=== PATIENT | female | born 1960 | race Hispanic/Latino ===

== ENCOUNTER 2016-09-22 22:53 | Inpatient (IN) | payer MEDICAID ==
[2016-09-22 22:54] VITALS: BMI 25.7
--- NOTE | 2016-09-22 23:24 | C.PDOC ---
History Of Present Illness A 56 y/o female presents to the ER c/o nausea, vomiting, and abdominal pain that began today. Pt notes the complaint as a sharp, stabbing pain in the epigastric area that is 4/10 discomfort. Pt denies fever, chills, vaginal discharge nor discharge, hematemesis, diarrhea, constipation, or any other complaints. Pt reports not tolerating PO. Time Seen by Provider: 09/22/16 23:24 Chief Complaint (Nursing): Abdominal Pain History Per: Patient History/Exam Limitations: no limitations Onset/Duration Of Symptoms: Hrs Current Symptoms Are (Timing): Still Present Severity: Mild Pain Scale Rating Of: 4 Location Of Pain/Discomfort: Epigastric Quality Of Discomfort: Sharp, Stabbing Associated Symptoms: Nausea, Vomiting. denies: Fever, Chills Alleviating Factors: None Recent travel outside of the [place]: No Additional History Per: Patient Abnormal Vaginal Bleeding: No Past Medical History Reviewed: Historical Data, Nursing Documentation, Vital Signs Vital Signs: Last Vital Signs Temp 98 F 09/22/16 23:01 Pulse 94 H 09/22/16 23:01 Resp 16 09/22/16 23:01 BP 125/85 09/22/16 23:01 Pulse Ox 96 09/23/16 01:45 - Medical History PMH: Asthma, Hypercholesterolemia Denies: Colonic Polyps, Fractures Surgical History: Denies: Endoscopy Family History: States: No Known Family Hx - Social History Hx Alcohol Use: No Hx Substance Use: No Review Of Systems Constitutional: Negative for: Fever, Chills Gastrointestinal: Positive for: Nausea, Vomiting, Abdominal Pain (Epigastric area). Negative for: Diarrhea, Constipation, Hematemesis Genitourinary: Negative for: Vaginal Discharge, Vaginal Bleeding Physical Exam - Physical Exam Appears: Non-toxic, No Acute Distress Skin: Warm, Dry Head: Normacephalic Eye(s): bilateral: Normal Inspection Oral Mucosa: Moist Neck: Trachea Midline, Supple Chest: Symmetrical Cardiovascular: Rhythm Regular Respiratory: No Rales, No Rhonchi, No Wheezing Gastrointestinal/Abdominal: Soft, Tenderness (Diffuse mild epigastric tenderness ), Distention, No Guarding, Rebound (Tympanic to percussion) Back: Normal Inspection Extremity: Normal ROM Extremity: Bilateral: Atraumatic, Normal Color And Temperature, Normal ROM Neurological/Psych: Oriented x3, Normal Speech, Normal Cognition Gait: Steady ED Course And Treatment - Laboratory Results Result Diagrams: 09/22/16 23:51 09/22/16 23:51 O2 Sat by Pulse Oximetry: 96 (RA) Pulse Ox Interpretation: Normal - CT Scan/US CT Abd/Pel Other Rad Studies (CT/US): Interpreted By Me, Read By Radiologist CT/US Interpretation: EXAM: CT Abdomen and Pelvis With Intravenous Contrast. CLINICAL HISTORY: 56 years old, female; Pain; Abdominal pain; Prior surgery; Surgery type: ; Patient HX: 320-. 16; Additional info: Epigastric pain, elevated lipase. TECHNIQUE: Axial computed tomography images of the abdomen and pelvis with intravenous contrast. This CT. exam was performed using one or more of the following dose reduction techniques: automated. exposure control, adjustment of the mA and/or kV according to patient size, and/ or use of iterative. reconstruction technique. Coronal and sagittal reformatted images were created and reviewed. CONTRAST: 100 mL of [id number] administered intravenously. COMPARISON: CT - ABD PELVIS PO IV CONTRAST 07/21/2015 5:36:06 AM. FINDINGS: Limitations: Motion artifact - mild. Lower thorax: Minimal atelectasis/scarring. Small hiatal hernia. ABDOMEN: Liver: Mild LEFT intrahepatic ductal dilatation, stable. Gallbladder and bile ducts: No calcified gallstones. No extrahepatic biliary duct dilatation. Pancreas: Emic-wi-ezpduxji stranding/fluid about head/neck of pancreas. Mild stranding about tail. of pancreas. No definite pancreatic necrosis. No discrete peripancreatic collection. Spleen: No splenomegaly. Adrenals: No mass. Kidneys and ureters: No mass. No hydronephrosis. Stomach and bowel: Scattered diverticula within colon. No associated inflammatory stranding. Segmental areas of underdistention of colon. No definite bowel wall thickening. No obstruction. Mild focal mural thickening vs underdistention of gastric antrum. Appendix: Normal caliber. No inflammation. PELVIS: Bladder: Unremarkable. Reproductive: Unremarkable as visualized. ABDOMEN and PELVIS: Intraperitoneal space: No significant fluid collection. No free air. Bones/ joints: No acute fracture. Soft tissues: Unremarkable. Vasculature: Patent splenic artery and vein. Minimal atherosclerotic disease. No abdominal aortic. aneurysm. Lymph nodes: No pathologically enlarged lymph nodes. IMPRESSION: 1. Acute pancreatitis. 2. Incidental/non-acute findings are described above. Disposition Discussed With Dr.: Tra Gillette Comment: accepted the pt on his service and took over the care at 1:48AM Doctor Will See Patient In The: ED Counseled Patient/Family Regarding: Studies Performed, Diagnosis - Disposition Disposition: HOSPITALIZED Disposition Time: 23:24 Condition: FAIR - POA Present On Arrival: Poor Glycemic Control - Clinical Impression Clinical Impression: Abdominal pain, Nausea, Acute pancreatitis - Scribe Statement The provider has reviewed the documentation as recorded by the Milesibe Kendell adams All medical record entries made by the Milesibe were at my direction and personally dictated by me. I have reviewed the chart and agree that the record accurately reflects my personal performance of the history, physical exam, medical decision making, and the department course for this patient. I have also personally directed, reviewed, and agree with the discharge instructions and disposition. Decision To Admit - Pt Status Changed To: Hospital Disposition Of: Inpatient - Admit Certification Admit to Inpatient:: After my assessment, the patient will require hospitalization for at least two midnights. This is because of the severity of symptoms shown, intensity of services needed, and/or the medical risk in this patient being treated as an outpatient. - InPatient: Physician Admission Certification:: After my assessment, the patient will require hospitalization for at least two midnights. This is because of the severity of symptoms shown, intensity of services needed, and/or the medical risk in this patient being treated as an outpatient. - . Bed Request Type: Regular Admitting Physician: Tra Gillette Patient Diagnosis: Nausea, Abdominal pain, Acute pancreatitis
[2016-09-22] MEDS ORDERED: Sodium Chloride 0.9% 1,000 ML IV ONE (23:26)
[2016-09-22] MEDS ORDERED: Sodium Chloride 0.9% 1,000 ML ONE (23:50)
[2016-09-22 23:55] LABS: BASO # 0.2 K/uL (0.0-0.2); EOS % 0.2 % (0.0-4.0); LYMPH # 2.1 K/uL (1.0-4.3); LYMPH % 13.9 % (20.0-40.0); MEAN CELL VOLUME 84.1 fL (81.0-99.0); MEAN CORPUSCULAR HEMOGLOBIN 29.7 pg (27.0-31.0); MEAN CORPUSCULAR HGB CONC 35.3 g/dL (33.0-37.0); MEAN PLATELET VOLUME 9.4 fL (7.2-11.7); MONO # 0.8 K/uL (0.0-0.8); NRBC % 0.1 % (0.0-2.0); WHITE BLOOD COUNT 15.4 K/uL (4.8-10.8)
[2016-09-23 00:02] LABS: CHLORIDE 97 mmol/L (98-107)
[2016-09-23 00:03] LABS: POTASSIUM 4.7 mmol/L (3.6-5.2); SODIUM 132 mmol/L (132-148)
[2016-09-23 00:05] LABS: ALB/GLOB RATIO 0.9 (1.0-2.1); ALKALINE PHOSPHATASE 77 U/L (38-126); ALT/SGPT 31 U/L (9-52); AST/SGOT 36 U/L (14-36); BILIRUBIN,TOTAL 1.1 mg/dL (0.2-1.3); BLOOD UREA NITROGEN 13 mg/dL (7-17); CARBON DIOXIDE 22 mmol/L (22-30); GFR AFRICAN-AMERICAN > 60; GLUCOSE,RANDOM 125 mg/dL (65-105); TOTAL PROTEIN 8.5 g/dL (6.3-8.3)
[2016-09-23 00:06] LABS: ALCOHOL SERUM < 10 mg/dl (0-10); CALCIUM 8.7 mg/dl (8.6-10.4)
[2016-09-23 00:08] LABS: URINE BACTERIA OCC (<OCC); URINE BILIRUBIN NEGATIVE (NEGATIVE); URINE BLOOD NEGATIVE (NEGATIVE); URINE COLOR Yellow (YELLOW); URINE GLUCOSE (UA) NORMAL (Normal); URINE KETONE NEGATIVE (NEGATIVE); URINE LEUKOCYTE ESTERASE TRACE Leu/uL (Negative); URINE PROTEIN NEGATIVE (NEGATIVE); URINE UROBILINOGEN NORMAL mg/dL (0.2-1.0); WBC URINE 8 /hpf (0-5)
[2016-09-23] MEDS ORDERED: Iodixanol 320 MG/ML 100 ML BOTTLE IV ONE (00:53)
--- NOTE | 2016-09-23 01:42 | CT ---
EXAM: CT Abdomen and Pelvis With Intravenous Contrast CLINICAL HISTORY: 56 years old, female; Pain; Abdominal pain; Prior surgery; Surgery type: ; Patient HX: 07-21-15; Additional info: Epigastric pain, elevated lipase TECHNIQUE: Axial computed tomography images of the abdomen and pelvis with intravenous contrast. This CT exam was performed using one or more of the following dose reduction techniques: automated exposure control, adjustment of the mA and/or kV according to patient size, and/or use of iterative reconstruction technique. Coronal and sagittal reformatted images were created and reviewed. CONTRAST: 100 mL of [id number] administered intravenously. COMPARISON: CT - ABD PELVIS PO IV CONTRAST 07/21/2015 5:36:06 AM FINDINGS: Limitations: Motion artifact - mild. Lower thorax: Minimal atelectasis/scarring. Small hiatal hernia. ABDOMEN: Liver: Mild LEFT intrahepatic ductal dilatation, stable. Gallbladder and bile ducts: No calcified gallstones. No extrahepatic biliary duct dilatation. Pancreas: Llhu-ng-jfhtfchh stranding/fluid about head/neck of pancreas. Mild stranding about tail of pancreas. No definite pancreatic necrosis. No discrete peripancreatic collection. Spleen: No splenomegaly. Adrenals: No mass. Kidneys and ureters: No mass. No hydronephrosis. Stomach and bowel: Scattered diverticula within colon. No associated inflammatory stranding. Segmental areas of underdistention of colon. No definite bowel wall thickening. No obstruction. Mild focal mural thickening vs underdistention of gastric antrum. Appendix: Normal caliber. No inflammation. PELVIS: Bladder: Unremarkable. Reproductive: Unremarkable as visualized. ABDOMEN and PELVIS: Intraperitoneal space: No significant fluid collection. No free air. Bones/joints: No acute fracture. Soft tissues: Unremarkable. Vasculature: Patent splenic artery and vein. Minimal atherosclerotic disease. No abdominal aortic aneurysm. Lymph nodes: No pathologically enlarged lymph nodes. IMPRESSION: 1. Acute pancreatitis. 2. Incidental/non-acute findings are described above.
[2016-09-23 02:54] VITALS: RESP 20
--- NOTE | 2016-09-23 03:00 | CP.PCM.HP ---
<Yuki Gomez - Last Filed: 09/23/16 02:48> History of Present Illness - History of Present Illness History of Present Illness: CC: "abdominal pain and vomiting" HPI: Patient is a 56 year old female with past medical history of hyperlipidemia and asthma who presents to the emergency room complaining of abdominal pain and vomiting. Patient reports epigastric abdominal pain began last night. She notes the pain was exacerbated after eating breakfast in the morning and shortly after she began to experience nausea/emesis and had 4 subsequent episodes. Patient reports vomitus contained food contents and denies hematemesis/coffee ground emesis. She described abdominal pain to be located to epigastric area, constant, and sharp in character. Patient states she has been treated three times in the past for similar symptoms but denies knowledge of previous diagnosis of pancreatitis. Patient admits to drinking half a bottle of whiskey on Fridays/Saturdays for several years. She denies current or previous withdrawal symptoms. Patient denies chest pain, shortness of breath, headache, fever, chills, dysuria, constipation, diarrhea, hematochezia, melanic stools, increased urinary frequency, and lower extremity edema. PMH: see HPI Medications: cholesterol medication? Allergies: NKDA Family History: No known family history Surgeries: Social: 25 pack year history. Drinks half a bottle of whiskey on Fridays or Saturdays for several years. Denies illicit drug use. Present on Admission - Present on Admission Any Indicators Present on Admission: No History of DVT/PE: No History of Uncontrolled Diabetes: No Urinary Catheter: No Decubitus Ulcer Present: No Review of Systems - Constitutional Constitutional: absent: Chills, Fever, Headache, Night Sweats, Weakness - EENT Eyes: absent: Blurred Vision, Change in Vision Ears: absent: Ear Pain, Tinnitus Nose/Mouth/Throat: absent: Nasal Congestion, Nasal Discharge - Cardiovascular Cardiovascular: absent: Chest Pain, Chest Pain at Rest, Chest Pain with Activity , Dyspnea, Palpitations - Gastrointestinal Gastrointestinal: Abdominal Pain, Nausea, Vomiting. absent: Coffee Ground Emesis, Constipation, Diarrhea, Heartburn, Hematemesis, Hematochezia - Genitourinary Genitourinary: absent: Dysuria, Hematuria, Urinary Frequency, Urinary Urgency - Musculoskeletal Musculoskeletal: absent: Arthralgias, Atrophy - Integumentary Integumentary: absent: Changing Lesions, New Lesions - Psychiatric Psychiatric: absent: Anxiety, Depression - Endocrine Endocrine: absent: Cold Intolorance, Heat Intolorance, Palpitations Past Patient History - Infectious Disease Hx of Infectious Diseases: None - Past Medical History & Family History Past Medical History?: Yes - Past Social History Smoking Status: Light Smoker < 10 Cigarettes Daily - CARDIAC Hx Hypercholesterolemia: Yes - PULMONARY Hx Asthma: Yes - MUSCULOSKELETAL/RHEUMATOLOGICAL Hx Fractures: No - GASTROINTESTINAL Hx Gastrointestinal Disorders: No - PSYCHIATRIC Hx Substance Use: No - SURGICAL HISTORY Hx Surgeries: Yes Hx Arthroscopy: Yes (LEFT SHOULDER AND LEFT ELBOW; FALL 2010) Hx Section: Yes (X1) - ANESTHESIA Hx Anesthesia: Yes Hx Anesthesia Reactions: No Hx Malignant Hyperthermia: No Meds Allergies/Adverse Reactions: Allergies Allergy/AdvReac Type Severity Reaction Status Date / Time No Known Allergies Allergy Verified 09/22/16 23:04 Physical Exam - Constitutional Appears: Non-toxic, No Acute Distress - Head Exam Head Exam: ATRAUMATIC, NORMAL INSPECTION, NORMOCEPHALIC - Eye Exam Eye Exam: EOMI, Normal appearance, PERRL - ENT Exam ENT Exam: Mucous Membranes Moist - Respiratory Exam Respiratory Exam: Clear to Auscultation Bilateral, NORMAL BREATHING PATTERN. absent: Rales, Rhonchi, Wheezes - Cardiovascular Exam Cardiovascular Exam: +S1, +S2. absent: Bradycardia, Tachycardia, +S4 - GI/Abdominal Exam GI & Abdominal Exam: Normal Bowel Sounds, Soft, Tenderness. absent: Guarding, Rebound, Rigid Additional comments: pain to palpation lateral to umbilicus on bilateral sides mild epigastric pain to palpation no rebound tenderness noted normal bowel sounds present no skin changes - Extremities Exam Extremities exam: Positive for: normal capillary refill, normal inspection, pedal pulses present. Negative for: pedal edema, tenderness - Back Exam Back exam: NORMAL INSPECTION. absent: CVA tenderness (L), CVA tenderness (R) - Neurological Exam Neurological exam: Alert, CN II-XII Intact, Oriented x3 - Psychiatric Exam Psychiatric exam: Normal Affect, Normal Mood - Skin Skin Exam: Intact, Normal Color, Warm Results - Vital Signs Recent Vital Signs: Last Vital Signs Temp 98.1 F 09/23/16 02:09 Pulse 88 09/23/16 02:09 Resp 18 09/23/16 02:09 BP 139/91 H 09/23/16 02:09 Pulse Ox 98 09/23/16 02:09 - Labs Result Diagrams: 09/22/16 23:51 09/22/16 23:51 Assessment & Plan - Assessment and Plan (Free Text) Assessment: 1. Acute Pancreatitis - possibly secondary to binge drinking. Will monitor for signs of withdrawal. - Lipase 988 - Leukocytosis of 15.4m afebrile - NPO - Normal Saline IV @200cc - Zofran 4 mg IVP q6h prn for nausea/vomiting - f/u fasting lipid panel, lipase, amylase - Morphine 1 mg IVP q4h prn for moderate pain - Monitor 2. Urine positive for bacteria - asymptomatic - UA: Leuk Esterase trace, WBC 8, Bacteria Occ H, Squam epith cells 6 - Repeat UA and urine culture 3. Prophylaxis -SCDs -Heparin 5000 U SC Q12h -Pepcid 20 mg IVP daily - Date & Time Date: 09/23/16 Time: 03:12 <Tra Gillette - Last Filed: 09/23/16 06:19> Results - Vital Signs Recent Vital Signs: Last Vital Signs Temp 98.4 F 09/23/16 02:52 Pulse 85 09/23/16 02:52 Resp 20 09/23/16 03:45 BP 134/85 09/23/16 02:52 Pulse Ox 96 09/23/16 02:52 - Labs Result Diagrams: 09/22/16 23:51 09/22/16 23:51 Assessment & Plan - Date & Time Date: 09/23/16 (I have seen and examined the patient. I agree with the findings and plan of care as documented by Dr. Gomez. Patient with acute pancreatitis. NPO. IVF. Symptomatic treatment. Patient admits to drinking heavily on weekends. Pancreatitis may be secondary to alcohol. Monitor for signs of withdrawal. Monitor for acute changes.) Time: 06:18 Attending/Attestation - Attestation I have personally seen and examined this patient.: Yes I have fully participated in the care of the patient.: Yes I have reviewed all pertinent clinical information: Yes
[2016-09-23] MEDS: Sodium Chloride 0.9% 1,000 ML IV SCH ×4 (03:30→23:02)
[2016-09-23 07:16] LABS: RBC URINE 1 /hpf (0-3); URINE BILIRUBIN NEGATIVE (NEGATIVE); URINE BLOOD NEGATIVE (NEGATIVE); URINE COLOR Yellow (YELLOW); URINE GLUCOSE (UA) NORMAL (Normal); URINE KETONE NEGATIVE (NEGATIVE); URINE LEUKOCYTE ESTERASE NEG Leu/uL (Negative); URINE PROTEIN NEGATIVE (NEGATIVE); URINE UROBILINOGEN NORMAL mg/dL (0.2-1.0); WBC URINE 1 /hpf (0-5)
[2016-09-23 08:18] LABS: BASO # 0.1 K/uL (0.0-0.2); BASO % 0.6 % (0.0-2.0); EOS # 0.1 K/uL (0.0-0.7); EOS % 0.7 % (0.0-4.0); HEMATOCRIT 38.9 % (34.0-47.0); LYMPH # 2.3 K/uL (1.0-4.3); LYMPH % 18.5 % (20.0-40.0); MEAN CELL VOLUME 83.6 fL (81.0-99.0); MEAN CORPUSCULAR HEMOGLOBIN 27.9 pg (27.0-31.0); MEAN CORPUSCULAR HGB CONC 33.4 g/dL (33.0-37.0); MEAN PLATELET VOLUME 10.1 fL (7.2-11.7); MONO # 0.7 K/uL (0.0-0.8); MONO % 6.1 % (0.0-10.0); RED CELL DISTRIBUTION WIDTH 13.1 % (11.5-14.5); WHITE BLOOD COUNT 12.3 K/uL (4.8-10.8)
[2016-09-23 08:34] LABS: CHLORIDE 103 mmol/L (98-107); POTASSIUM 3.9 mmol/L (3.6-5.2); SODIUM 137 mmol/L (132-148)
[2016-09-23 08:36] LABS: ALB/GLOB RATIO 1.1 (1.0-2.1); AMYLASE 156 U/L (30-110); AST/SGOT 22 U/L (14-36); BILIRUBIN,TOTAL 0.6 mg/dL (0.2-1.3); CARBON DIOXIDE 25 mmol/L (22-30); GFR AFRICAN-AMERICAN > 60
[2016-09-23 08:37] LABS: ALKALINE PHOSPHATASE 69 U/L (38-126); ALT/SGPT 25 U/L (9-52); BLOOD UREA NITROGEN 10 mg/dL (7-17); CALCIUM 7.9 mg/dl (8.6-10.4); CHOLESTEROL 292 mg/dL (0-199); GLUCOSE,RANDOM 105 mg/dL (65-105)
[2016-09-23 09:03] LABS: THYROID STIMULATING HORMONE 0.92 mIU/L (0.46-4.68)
--- NOTE | 2016-09-23 14:29 | US ---
HISTORY: pancreatitis r/o gallstones/ obx COMPARISON: Comparison is made to the previous CT dated 09/23/2016 TECHNIQUE: Sonographic evaluation of the abdomen. FINDINGS: LIVER: Measures 18.2 cm. Heterogeneous increased echogenicity of the liver parenchyma. No mass. No intrahepatic bile duct dilatation. GALLBLADDER: Unremarkable. No gallstones. COMMON BILE DUCT: Measures 3.9 mm. No stones. No dilatation. PANCREAS: Limited assessment of the pancreas due to overlying bowel gas. The visualized portion of the pancreas demonstrates hypoechoic echotexture could be due to edema and pancreatitis RIGHT KIDNEY: Measures 12 x 5.8 x 6cm. Normal echogenicity. No calculus, mass, or hydronephrosis. LEFT KIDNEY: Measures 10.7 x 6.3 x 5.8cm. Normal echogenicity. No calculus, mass, or hydronephrosis. SPLEEN: Normal in size and contour. No mass. AORTA: No aneurysmal dilatation. IVC: Unremarkable. OTHER FINDINGS: None. IMPRESSION: Mild hepatomegaly with findings suggestive of [id number]-[id number] hepatic steatosis. Suboptimal and/limited assessment of the pancreas due to overlying bowel gas. Visualized portion of the pancreas demonstrates hypoechoic echotexture could be due to edema and pancreatitis. No evidence of cholelithiasis or cholecystitis.
--- NOTE | 2016-09-23 14:59 | CP.PCM.PN ---
<Allegra Pak - Last Filed: 09/23/16 15:01> Subjective - Date & Time of Evaluation Date of Evaluation: 09/23/16 Time of Evaluation: 08:00 - Subjective Subjective: Patient seen and examined at bedside this morning. She reports a lot of pain in her abdomen. He says that the last tiem she vomitied was yesterday evening and she denies nausea right now. She reports normal bowel movements. She is currently NPO. She reports drinking whisky on Fridays, Saturdays, and Sundays about 5-6 glasses or half of a handle on each occasion. She has been drinking like this for 8 years. She denies withdrawal symptoms or seizures when she does not drink alcohol. She has no other complaints such as fever/chills, weakness, numbness, chest pain, palpitations, Objective - Vital Signs/Intake and Output Vital Signs (last 24 hours): Temp Pulse Resp BP Pulse Ox 98.6 F 85 20 130/78 96 09/23/16 08:22 09/23/16 08:22 09/23/16 08:22 09/23/16 14:35 09/23/16 08:22 Intake and Output: 09/23/16 09/23/16 06:59 18:59 Intake Total 650 Balance 650 - Medications Medications: Current Medications Famotidine (Pepcid) [address] [facility] Last Admin: 09/23/16 09:13 Dose: 20 mg Heparin Sodium (Porcine) (Heparin) 5,[address] [facility] Last Admin: 09/23/16 09:08 Dose: 5,000 units Sodium Chloride (Sodium Chloride 0.9%) 1,000 mls @ 200 mls/hr IV .Q5H [facility] Last Admin: 09/23/16 14:25 Dose: 200 mls/hr Morphine Sulfate (Morphine) 1 mg IVP Q4 PRN PRN Reason: Pain, moderate (4-7) Ondansetron HCl (Zofran Inj) 4 mg IVP Q6H PRN PRN Reason: Nausea/Vomiting Pneumococcal Polyvalent Vaccine (Pneumovax 23 Vaccine) 0.5 ml IM .ONCE ONE Stop: 09/26/16 10:01 - Labs Labs: 09/23/16 08:11 09/23/16 08:11 PT 11.2 SECONDS (9.7-12.2) 09/23/16 08:11 INR 1.0 09/23/16 08:11 APTT 28 SECONDS (21-34) 09/23/16 08:11 - Constitutional Appears: Non-toxic, No Acute Distress, In Acute Distress - Head Exam Head Exam: ATRAUMATIC, NORMAL INSPECTION - Eye Exam Eye Exam: EOMI, Normal appearance. absent: Scleral icterus Pupil Exam: NORMAL ACCOMODATION - ENT Exam ENT Exam: Mucous Membranes Moist - Respiratory Exam Respiratory Exam: Clear to Ausculation Bilateral, NORMAL BREATHING PATTERN. absent: Accessory Muscle Use, Rales, Rhonchi, Wheezes, Respiratory Distress - Cardiovascular Exam Cardiovascular Exam: REGULAR RHYTHM, +S1, +S2 - GI/Abdominal Exam GI & Abdominal Exam: Guarding, Soft, Tenderness, Normal Bowel Sounds (diffuse tenderness). absent: Firm, Rigid - Extremities Exam Extremities Exam: Normal Inspection. absent: Calf Tenderness, Pedal Edema - Back Exam Back Exam: NORMAL INSPECTION. absent: CVA tenderness (L), CVA tenderness (R), paraspinal tenderness - Neurological Exam Neurological Exam: Alert, Awake, CN II-XII Intact, Oriented x3 - Psychiatric Exam Psychiatric exam: Normal Affect, Normal Mood - Skin Skin Exam: Dry, Intact, Normal Color, Warm Assessment and Plan - Assessment and Plan (Free Text) Assessment: Acute Pancreatitis possibly secondary to Alcohol or/and high triglyceride levels NPO NS at 200 cc/hour Morphine 1 mg IVP q4h prn for moderate pain Tchol - 292, Trig 1573, Hdl 35, LDL <30 Lipase 988, then 534 Leukocytosis of 15.4m afebrile Zofran 4 mg IVP q6h prn for nausea/vomiting UA neg f/u am labs Alcohol Withdrawal Librium taper Folic acid/MV/Thiamine CIWA protocol Seizure/aspiration precautions Alcohol level <10 f/u UDS Hepatitis negative Prophylaxis -SCDs -Heparin 5000 U SC Q12h -Pepcid 20 mg IVP daily <Janel Nolasco V - Last Filed: 09/23/16 19:56> Objective - Vital Signs/Intake and Output Vital Signs (last 24 hours): Temp Pulse Resp BP Pulse Ox 98.6 F 85 20 130/78 96 09/23/16 08:22 09/23/16 08:22 09/23/16 08:22 09/23/16 14:35 09/23/16 08:22 - Medications Medications: Current Medications Chlordiazepoxide (Librium) [address] [facility] PRN Reason: Taper Stop: 09/27/16 17:59 Last Admin: 09/23/16 18:13 Dose: 25 mg Famotidine (Pepcid) [address] [facility] Last Admin: 09/23/16 09:13 Dose: 20 mg Heparin Sodium (Porcine) (Heparin) 5,[address] [facility] Last Admin: 09/23/16 09:08 Dose: 5,000 units Sodium Chloride (Sodium Chloride 0.9%) 1,000 mls @ 200 mls/hr IV .Q5H [facility] Last Admin: 09/23/16 18:16 Dose: 200 mls/hr Folic Acid 1 mg/ Sodium (Chloride) 100.2 mls @ 60 mls/hr IV DAILY [facility] Morphine Sulfate (Morphine) 1 mg IVP Q4 PRN PRN Reason: Pain, moderate (4-7) Last Admin: 09/23/16 16:10 Dose: 1 mg Ondansetron HCl (Zofran Inj) 4 mg IVP Q6H PRN PRN Reason: Nausea/Vomiting Pneumococcal Polyvalent Vaccine (Pneumovax 23 Vaccine) 0.5 ml IM .ONCE ONE Stop: 09/26/16 10:01 Thiamine HCl (Vitamin B1 Inj) [address] [facility] - Labs Labs: 09/23/16 08:11 09/23/16 08:11 PT 11.2 SECONDS (9.7-12.2) 09/23/16 08:11 INR 1.0 09/23/16 08:11 APTT 28 SECONDS (21-34) 09/23/16 08:11 Attending/Attestation - Attestation I have personally seen and examined this patient.: Yes I have fully participated in the care of the patient.: Yes I have reviewed all pertinent clinical information, including history, physical exam and plan: Yes Notes (Text): Patient seen, examined, and case discussed with day-time resident. Patient reports epigastric abdominal pain localized to the abdomen for about one day duration. Patient reports alcohol use every Wednesday, Wednesday, and Sundays. Patient reports she has had three similar attacks this years. Discussed with patient extensively regarding contributing factor of alcohol in her abdominal pain. Patient denies symptoms of withdrawal from alcohol. Patient reports last menstrual period was about 20 years ago. Patient denies dysuria, denies frequency, and denies hematuria. 1) Acute Pancreatitis Gigi's criteria: 1 (Age) Risk factors: alcohol, hypertriglyceridemia NPO NS at 200 cc/hour Morphine 1 mg IVP q4h prn for moderate pain Tchol - 292, Trig 1573, Hdl 35, LDL <30-->will start fibrate when diet is advanced Lipase 988, then 534 Zofran 4 mg IVP q6h prn for nausea/vomiting Abdominal US (09/23/16): mild hepatomegaly with findings suggestive of mild to moderate hepatic steatosis. hypoechonic echotexture could be due to edema and pancreatitis. No evidence of cholelithiasis or cholecystitis CT Abdomen and Pelvis (IV contrast): acute pancreatitis; mild to moderate straning/fluid about head/neck of pancreas. mild stranding about tail of pancreas. No definite pancreatic necrosis. No discrete peripancreatic collection. No gallstones. No extrahepatic biliary duct dilatation 2) Alcohol use Alcohol Withdrawal Librium taper (day 1) Folic acid/MV/Thiamine CIWA protocol Seizure/aspiration precautions Alcohol level <10 f/u UDS Hepatitis negative 3) Prophylaxis SCDs Heparin 5000 U SC Q12h Pepcid 20 mg IVP daily NS 200cc/hr 4) Hypertriglyceridemia Will start fibrate when diet is advanced
[2016-09-23] MEDS ORDERED: Thiamine 100 mg/ml Inj IV ONE (15:07)
[2016-09-23] MEDS ORDERED: Thiamine 100 mg/ml Inj IM ONE (22:34)
[2016-09-24 08:05] LABS: BASO # 0.1 K/uL (0.0-0.2); BASO % 0.7 % (0.0-2.0); EOS % 0.2 % (0.0-4.0); HEMATOCRIT 36.6 % (34.0-47.0); LYMPH # 2.4 K/uL (1.0-4.3); LYMPH % 14.5 % (20.0-40.0); MEAN CELL VOLUME 84.3 fL (81.0-99.0); MEAN CORPUSCULAR HEMOGLOBIN 28.3 pg (27.0-31.0); MEAN CORPUSCULAR HGB CONC 33.5 g/dL (33.0-37.0); MEAN PLATELET VOLUME 9.8 fL (7.2-11.7); MONO % 6.2 % (0.0-10.0); RED CELL DISTRIBUTION WIDTH 13.5 % (11.5-14.5); WHITE BLOOD COUNT 16.7 K/uL (4.8-10.8)
[2016-09-24 08:20] LABS: CHLORIDE 101 mmol/L (98-107); POTASSIUM 3.6 mmol/L (3.6-5.2); SODIUM 134 mmol/L (132-148)
[2016-09-24 08:22] LABS: ALKALINE PHOSPHATASE 64 U/L (38-126); ALT/SGPT 19 U/L (9-52); AST/SGOT 21 U/L (14-36); BLOOD UREA NITROGEN 6 mg/dL (7-17); CARBON DIOXIDE 25 mmol/L (22-30); GFR AFRICAN-AMERICAN > 60; TOTAL PROTEIN 6.9 g/dL (6.3-8.3)
[2016-09-24 08:23] LABS: CALCIUM 7.7 mg/dl (8.6-10.4); GLUCOSE,RANDOM 101 mg/dL (65-105); MAGNESIUM 1.8 mg/dL (1.6-2.3); PHOSPHOROUS 2.9 mg/dL (2.5-4.5)
[2016-09-24] MEDS: Thiamine 100 mg/ml Inj IV SCH (09:27)
[2016-09-24] MEDS: Sodium Chloride 0.9% 1,000 ML IV SCH ×2 (09:40→19:40)
--- NOTE | 2016-09-24 10:09 | CP.PCM.PN ---
<Allegra Pak - Last Filed: 09/24/16 14:05> Subjective - Date & Time of Evaluation Date of Evaluation: 09/24/16 Time of Evaluation: 07:15 - Subjective Subjective: Patient seen and examined at bedside this morning. She reports a lot of pain in her abdomen. She states the pain medicine is not working for her. She denies nausea or vomiting. Her last BM was 3 days ago. She is currently NPO. She denies withdrawal symptoms such as anziety, tremors, sweating, hallucinations, or seizures. She has no other complaints such as fever/chills, weakness, numbness, chest pain, palpitations, Objective - Vital Signs/Intake and Output Vital Signs (last 24 hours): Temp Pulse Resp BP Pulse Ox 99.6 F 101 H 20 119/78 99 09/24/16 00:05 09/24/16 00:05 09/24/16 00:05 09/24/16 00:05 09/24/16 00:05 Intake and Output: 09/24/16 09/24/16 06:59 18:59 Intake Total 1999 Balance 1999 - Medications Medications: Current Medications Chlordiazepoxide (Librium) 25 mg PO Q6 [facility] PRN Reason: Taper Stop: 09/27/16 17:59 Last Admin: 09/24/16 06:38 Dose: 25 mg Famotidine (Pepcid) 20 mg IVP DAILY [facility] Last Admin: 09/24/16 09:25 Dose: 20 mg Heparin Sodium (Porcine) (Heparin) 5,000 units SC Q12 [facility] Last Admin: 09/24/16 09:26 Dose: 5,000 units Sodium Chloride (Sodium Chloride 0.9%) 1,000 mls @ 200 mls/hr IV .Q5H [facility] Last Admin: 09/24/16 09:40 Dose: 200 mls/hr Folic Acid 1 mg/ Sodium (Chloride) 100.2 mls @ 60 mls/hr IV DAILY [facility] Last Admin: 09/24/16 09:28 Dose: 60 mls/hr Morphine Sulfate (Morphine) 2 mg IVP Q4 PRN PRN Reason: Pain, moderate (4-7) Last Admin: 09/24/16 09:13 Dose: 2 mg Ondansetron HCl (Zofran Inj) 4 mg IVP Q6H PRN PRN Reason: Nausea/Vomiting Pneumococcal Polyvalent Vaccine (Pneumovax 23 Vaccine) 0.5 ml IM .ONCE ONE Stop: 09/26/16 10:01 Thiamine HCl (Vitamin B1 Inj) 100 mg IV DAILY [facility] Last Admin: 09/24/16 09:27 Dose: 100 mg - Labs Labs: 09/24/16 07:53 09/24/16 07:53 PT 11.2 SECONDS (9.7-12.2) 09/23/16 08:11 INR 1.0 09/23/16 08:11 APTT 28 SECONDS (21-34) 09/23/16 08:11 - Constitutional Appears: Non-toxic, In Acute Distress - Head Exam Head Exam: ATRAUMATIC, NORMAL INSPECTION - Eye Exam Eye Exam: EOMI, Normal appearance. absent: Scleral icterus Pupil Exam: NORMAL ACCOMODATION - ENT Exam ENT Exam: Mucous Membranes Moist - Respiratory Exam Respiratory Exam: Clear to Ausculation Bilateral, NORMAL BREATHING PATTERN. absent: Accessory Muscle Use, Rales, Wheezes, Respiratory Distress - Cardiovascular Exam Cardiovascular Exam: REGULAR RHYTHM, +S1, +S2 - GI/Abdominal Exam GI & Abdominal Exam: Guarding, Soft, Tenderness, Normal Bowel Sounds. absent: Distended, Firm - Extremities Exam Extremities Exam: Normal Inspection. absent: Calf Tenderness, Pedal Edema - Back Exam Back Exam: NORMAL INSPECTION. absent: CVA tenderness (L), CVA tenderness (R), paraspinal tenderness - Neurological Exam Neurological Exam: Alert, Awake, Oriented x3 Neuro motor strength exam: Left Upper Extremity: 5, Right Upper Extremity: 5, Left Lower Extremity: 5, Right Lower Extremity: 5 - Psychiatric Exam Psychiatric exam: Normal Affect, Normal Mood - Skin Skin Exam: Dry, Intact, Normal Color, Warm Assessment and Plan - Assessment and Plan (Free Text) Assessment: Acute Pancreatitis Likely secondary to alcohol use and hypertriglyceridemia NPO NS at 200 cc/hour Morphine 2 mg IVP q4h prn for moderate pain Tchol - 292, Trig 1573, Hdl 35, LDL <30-->will start fibrate when diet is advanced Lipase 534 from 988 on admission Zofran 4 mg IVP q6h prn for nausea/vomiting Abdominal US (09/23/16): mild hepatomegaly with findings suggestive of mild to moderate hepatic steatosis. hypoechonic echotexture could be due to edema and pancreatitis. No evidence of cholelithiasis or cholecystitis CT Abdomen and Pelvis (IV contrast): acute pancreatitis; mild to moderate straning/fluid about head/neck of pancreas. mild stranding about tail of pancreas. No definite pancreatic necrosis. No discrete peripancreatic collection. No gallstones. No extrahepatic biliary duct dilatation Alcohol Abuse Librium taper - day #2 Folic acid/MV/Thiamine CIWA protocol Seizure/aspiration precautions Alcohol level <10 f/u UDS Hepatitis negative Leukocytosis WBC = 16.7, no bands Likely due to pancreatitis Afebrile Blood cultures (09/23) - negative for 24 hours Hypertriglyceridemia Will start fibrate when diet is advanced, patient is still NPO Trig - 1573 (Tchol 293, HDL 35, LDL < 30) Prophylaxis SCDs Heparin 5000 U SC Q12h Pepcid 20 mg IVP daily NS 200cc/hr <Janel Nolasco V - Last Filed: 09/24/16 20:29> Objective - Vital Signs/Intake and Output Vital Signs (last 24 hours): Temp Pulse Resp BP Pulse Ox 99.6 F 101 H 20 119/78 99 09/24/16 00:05 09/24/16 00:05 09/24/16 00:05 09/24/16 00:05 09/24/16 00:05 Intake and Output: 09/24/16 09/25/16 18:59 06:59 Intake Total 1600 Balance 1600 - Medications Medications: Current Medications Chlordiazepoxide (Librium) 25 mg PO TID [facility] PRN Reason: Taper Stop: 09/27/16 17:59 Last Admin: 09/24/16 17:59 Dose: 25 mg Famotidine (Pepcid) 20 mg IVP DAILY [facility] Last Admin: 09/24/16 09:25 Dose: 20 mg Heparin Sodium (Porcine) (Heparin) 5,000 units SC Q12 [facility] Last Admin: 09/24/16 09:26 Dose: 5,000 units Sodium Chloride (Sodium Chloride 0.9%) 1,000 mls @ 200 mls/hr IV .Q5H [facility] Last Admin: 09/24/16 09:40 Dose: 200 mls/hr Folic Acid 1 mg/ Sodium (Chloride) 100.2 mls @ 60 mls/hr IV DAILY [facility] Last Admin: 09/24/16 09:28 Dose: 60 mls/hr Morphine Sulfate (Morphine) 2 mg IVP Q4 PRN PRN Reason: Pain, moderate (4-7) Last Admin: 09/24/16 15:15 Dose: 2 mg Ondansetron HCl (Zofran Inj) 4 mg IVP Q6H PRN PRN Reason: Nausea/Vomiting Pneumococcal Polyvalent Vaccine (Pneumovax 23 Vaccine) 0.5 ml IM .ONCE ONE Stop: 09/26/16 10:01 Thiamine HCl (Vitamin B1 Inj) 100 mg IV DAILY [facility] Last Admin: 09/24/16 09:27 Dose: 100 mg - Labs Labs: 09/24/16 07:53 09/24/16 07:53 PT 11.2 SECONDS (9.7-12.2) 09/23/16 08:11 INR 1.0 09/23/16 08:11 APTT 28 SECONDS (21-34) 09/23/16 08:11 Attending/Attestation - Attestation I have personally seen and examined this patient.: Yes I have fully participated in the care of the patient.: Yes I have reviewed all pertinent clinical information, including history, physical exam and plan: Yes Notes (Text): Patient seen, examined, and case discussed with day-time resident. Patient reports epigastric abdominal pain localized to the abdomen for about one day duration. Patient reporting abdominal pain has mildly improved. Increased Morphine 2mg IV Q 4hours PRN. Patient has mild leukocytosis. Afebrile. Blood cultures from admission are negative. Patient denies symptoms of withdrawal from alcohol. Will continue to monitor prior to advancing diet. 1) Acute Pancreatitis Gigi's criteria: 1 (Age)-->0 Risk factors: alcohol, hypertriglyceridemia NPO NS at 200 cc/hour Morphine 2 mg IVP q4h prn for moderate pain Tchol - 292, Trig 1573, Hdl 35, LDL <30-->will start fibrate when diet is advanced Lipase 988, then 534 Zofran 4 mg IVP q6h prn for nausea/vomiting Abdominal US (09/23/16): mild hepatomegaly with findings suggestive of mild to moderate hepatic steatosis. hypoechonic echotexture could be due to edema and pancreatitis. No evidence of cholelithiasis or cholecystitis CT Abdomen and Pelvis (IV contrast): acute pancreatitis; mild to moderate straning/fluid about head/neck of pancreas. mild stranding about tail of pancreas. No definite pancreatic necrosis. No discrete peripancreatic collection. No gallstones. No extrahepatic biliary duct dilatation 2) Alcohol use Alcohol Withdrawal Librium taper (day 2) Folic acid/MV/Thiamine CIWA protocol Seizure/aspiration precautions Alcohol level <10 UDS: negative (opiate given Morphine IVX1) Hepatitis negative 3) Prophylaxis SCDs Heparin 5000 U SC Q12h Pepcid 20 mg IVP daily NS 200cc/hr 4) Hypertriglyceridemia Will start fibrate when diet is advanced
[2016-09-24] MEDS ORDERED: Magnesium Hydroxide Susp 30 ml UD PO ONE ×2 (18:06→19:20)
[2016-09-25] MEDS: Sodium Chloride 0.9% 1,000 ML IV SCH ×5 (05:00→14:23)
[2016-09-25 07:12] LABS: BASO # 0.1 K/uL (0.0-0.2); BASO % 0.6 % (0.0-2.0); EOS # 0.1 K/uL (0.0-0.7); EOS % 0.3 % (0.0-4.0); HEMATOCRIT 36.7 % (34.0-47.0); LYMPH % 11.5 % (20.0-40.0); MEAN CELL VOLUME 86.1 fL (81.0-99.0); MEAN CORPUSCULAR HEMOGLOBIN 28.3 pg (27.0-31.0); MEAN CORPUSCULAR HGB CONC 32.9 g/dL (33.0-37.0); MEAN PLATELET VOLUME 9.4 fL (7.2-11.7); NRBC % 0.1 % (0.0-2.0); RED CELL DISTRIBUTION WIDTH 13.2 % (11.5-14.5); WHITE BLOOD COUNT 17.1 K/uL (4.8-10.8)
[2016-09-25 07:45] LABS: CHLORIDE 101 mmol/L (98-107); SODIUM 134 mmol/L (132-148)
[2016-09-25 07:46] LABS: POTASSIUM 3.5 mmol/L (3.6-5.2)
[2016-09-25 07:47] LABS: GFR AFRICAN-AMERICAN > 60
[2016-09-25 07:48] LABS: ALKALINE PHOSPHATASE 82 U/L (38-126); ALT/SGPT 19 U/L (9-52); AST/SGOT 24 U/L (14-36); BILIRUBIN,TOTAL 1.2 mg/dL (0.2-1.3); BLOOD UREA NITROGEN 6 mg/dL (7-17); CARBON DIOXIDE 22 mmol/L (22-30); GLUCOSE,RANDOM 93 mg/dL (65-105); PHOSPHOROUS 2.5 mg/dL (2.5-4.5); TOTAL PROTEIN 6.8 g/dL (6.3-8.3)
[2016-09-25 07:49] LABS: CALCIUM 7.6 mg/dl (8.6-10.4)
--- NOTE | 2016-09-25 10:29 | CP.PCM.PN ---
<Allegra Pak - Last Filed: 09/25/16 14:01> Subjective - Date & Time of Evaluation Date of Evaluation: 09/25/16 Time of Evaluation: 07:30 - Subjective Subjective: Patient seen and examined at bedside this morning. She reports a lot of pain in her abdomen but slightly improved from yesterday. She denies nausea or vomiting and reports that she has no appetite due to the pain. She is currently NPO. Her last BM was 5 days ago. She is requesting something to help her go to the bathroom. She denies withdrawal symptoms such as anxiety, tremors, sweating, hallucinations, or seizures. She has no other complaints such as fever/chills, weakness, numbness, chest pain, palpitations. Objective - Vital Signs/Intake and Output Vital Signs (last 24 hours): Temp Pulse Resp BP Pulse Ox 98.9 F 103 H 20 116/80 94 L 09/25/16 07:59 09/25/16 07:59 09/25/16 07:59 09/25/16 07:59 09/25/16 07:59 Intake and Output: 09/25/16 09/25/16 06:59 18:59 Intake Total 3600 Balance 3600 - Medications Medications: Current Medications Chlordiazepoxide (Librium) 25 mg PO TID [facility] PRN Reason: Taper Stop: 09/27/16 17:59 Last Admin: 09/25/16 10:02 Dose: 25 mg Famotidine (Pepcid) 20 mg IVP DAILY [facility] Last Admin: 09/25/16 09:59 Dose: 20 mg Heparin Sodium (Porcine) (Heparin) 5,000 units SC Q12 [facility] Last Admin: 09/25/16 10:05 Dose: 5,000 units Sodium Chloride (Sodium Chloride 0.9%) 1,000 mls @ 200 mls/hr IV .Q5H [facility] Last Admin: 09/25/16 09:54 Dose: 200 mls/hr Folic Acid 1 mg/ Sodium (Chloride) 100.2 mls @ 60 mls/hr IV DAILY [facility] Last Admin: 09/24/16 09:28 Dose: 60 mls/hr Potassium Chloride (Potassium Chloride 20 Meq/100 Ml) 20 meq in 100 mls @ 50 mls/hr IVPB ONCE ONE Stop: 09/25/16 11:04 Last Admin: 09/25/16 10:06 Dose: 50 mls/hr Morphine Sulfate (Morphine) 2 mg IVP Q4 PRN PRN Reason: Pain, moderate (4-7) Last Admin: 09/25/16 07:08 Dose: 2 mg Ondansetron HCl (Zofran Inj) 4 mg IVP Q6H PRN PRN Reason: Nausea/Vomiting Pneumococcal Polyvalent Vaccine (Pneumovax 23 Vaccine) 0.5 ml IM .ONCE ONE Stop: 09/26/16 10:01 Thiamine HCl (Vitamin B1 Inj) 100 mg IV DAILY [facility] Last Admin: 09/24/16 09:27 Dose: 100 mg - Labs Labs: 09/25/16 07:03 09/25/16 07:03 PT 11.2 SECONDS (9.7-12.2) 09/23/16 08:11 INR 1.0 09/23/16 08:11 APTT 28 SECONDS (21-34) 09/23/16 08:11 - Constitutional Appears: Non-toxic, No Acute Distress - Head Exam Head Exam: ATRAUMATIC, NORMAL INSPECTION - Eye Exam Eye Exam: EOMI, Normal appearance, PERRL Pupil Exam: NORMAL ACCOMODATION - ENT Exam ENT Exam: Mucous Membranes Moist - Respiratory Exam Respiratory Exam: Clear to Ausculation Bilateral, NORMAL BREATHING PATTERN. absent: Accessory Muscle Use, Rales, Wheezes, Respiratory Distress - Cardiovascular Exam Cardiovascular Exam: REGULAR RHYTHM, +S1, +S2 - GI/Abdominal Exam GI & Abdominal Exam: Soft, Normal Bowel Sounds. absent: Distended, Firm, Guarding, Tenderness - Extremities Exam Extremities Exam: Normal Inspection. absent: Calf Tenderness - Back Exam Back Exam: NORMAL INSPECTION. absent: CVA tenderness (L), CVA tenderness (R), paraspinal tenderness - Neurological Exam Neurological Exam: Alert, Awake, Oriented x3 - Psychiatric Exam Psychiatric exam: Normal Affect, Normal Mood - Skin Skin Exam: Dry, Intact, Normal Color, Warm Assessment and Plan - Assessment and Plan (Free Text) Assessment: Acute Pancreatitis Likely secondary to alcohol use and hypertriglyceridemia has been NPO - will advance diet to clear liquids today NS at 100 cc/hour Morphine 2 mg IVP q4h prn for moderate pain Tchol - 292, Trig 1573, Hdl 35, LDL <30-->will start fibrate when diet is advanced Lipase 534 from 988 on admission Zofran 4 mg IVP q6h prn for nausea/vomiting Abdominal US (09/23/16): mild hepatomegaly with findings suggestive of mild to moderate hepatic steatosis. hypoechonic echotexture could be due to edema and pancreatitis. No evidence of cholelithiasis or cholecystitis CT Abdomen and Pelvis (IV contrast): acute pancreatitis; mild to moderate straning/fluid about head/neck of pancreas. mild stranding about tail of pancreas. No definite pancreatic necrosis. No discrete peripancreatic collection. No gallstones. No extrahepatic biliary duct dilatation Alcohol Abuse Librium taper - day #3 Folic acid/MV/Thiamine CIWA protocol Seizure/aspiration precautions Alcohol level <10 UDS positive for opiates - was given pain meds in the ER and this sample was collected after Hepatitis negative Leukocytosis WBC = 17.1, no bands Likely due to pancreatitis Afebrile Blood cultures (09/23) - negative for 48 hours Urine culture (09/23) - negative f/u procalcitonin, ESR, CRP Monitor Hypertriglyceridemia Start Gemfibrozil 600mg PO BID Trig - 1573 (Tchol 293, HDL 35, LDL < 30) Hypokalemia K = 3.5 Mg = 2 KCl 20meq IV x one dose Prophylaxis SCDs Heparin 5000 U SC Q12h Pepcid 20 mg IVP daily NS 100cc/hr <Janel Nolasco V - Last Filed: 09/25/16 17:54> Objective - Vital Signs/Intake and Output Vital Signs (last 24 hours): Temp Pulse Resp BP Pulse Ox 99.6 F 102 H 20 127/89 98 09/25/16 16:00 09/25/16 16:00 09/25/16 16:00 09/25/16 16:00 09/25/16 16:00 Intake and Output: 09/25/16 09/25/16 06:59 18:59 Intake Total 3600 1600 Balance 3600 1600 - Medications Medications: Current Medications Chlordiazepoxide (Librium) 25 mg PO TID [facility] PRN Reason: Taper Stop: 09/27/16 17:59 Last Admin: 09/25/16 17:37 Dose: 25 mg Docusate Sodium (Colace) 100 mg PO BID [facility] Last Admin: 09/25/16 17:41 Dose: 100 mg Famotidine (Pepcid) 20 mg PO BID [facility] Folic Acid (Folic Acid) 1 mg PO DAILY [facility] Gemfibrozil (Lopid) 600 mg PO BID [facility] Last Admin: 09/25/16 17:41 Dose: 600 mg Heparin Sodium (Porcine) (Heparin) 5,000 units SC Q12 [facility] Last Admin: 09/25/16 10:05 Dose: 5,000 units Sodium Chloride (Sodium Chloride 0.9%) 1,000 mls @ 100 mls/hr IV .Q10H [facility] Last Admin: 09/25/16 14:23 Dose: 100 mls/hr Morphine Sulfate (Morphine) 2 mg IVP Q4 PRN PRN Reason: Pain, moderate (4-7) Last Admin: 09/25/16 07:08 Dose: 2 mg Ondansetron HCl (Zofran Inj) 4 mg IVP Q6H PRN PRN Reason: Nausea/Vomiting Pneumococcal Polyvalent Vaccine (Pneumovax 23 Vaccine) 0.5 ml IM .ONCE ONE Stop: 09/26/16 10:01 Thiamine HCl (Vitamin B1 Tab) 100 mg PO DAILY [facility] - Labs Labs: 09/25/16 07:03 09/25/16 07:03 PT 11.2 SECONDS (9.7-12.2) 09/23/16 08:11 INR 1.0 09/23/16 08:11 APTT 28 SECONDS (21-34) 09/23/16 08:11 Attending/Attestation - Attestation I have personally seen and examined this patient.: Yes I have fully participated in the care of the patient.: Yes I have reviewed all pertinent clinical information, including history, physical exam and plan: Yes Notes (Text): Patient seen, examined, and case discussed with day-time resident. Patient reports epigastric abdominal pain has improved compared to yesterday. Patient is requesting to eat. Patient started on clear liquids. Patient started on Gemfibrozil 600mg PO bid to treat hypertriglyceridemia. Decreased IV fluids to 100cc/hr. Repeat chest xray: no active disease Increased Morphine 2mg IV Q 4hours PRN. Order for d-dimer, TSH in light of mild tachycardia Assessment/Plan 1) Acute Pancreatitis Gigi's criteria: 1 (Age)-->0 Risk factors: alcohol, hypertriglyceridemia Start on clear liquid NS at 100 cc/hour Morphine 2 mg IVP q4h prn for moderate pain Tchol - 292, Trig 1573, Hdl 35, LDL <30 Start Gemfibrozil 600mg PO bid Zofran 4 mg IVP q6h prn for nausea/vomiting Abdominal US (09/23/16): mild hepatomegaly with findings suggestive of mild to moderate hepatic steatosis. hypoechonic echotexture could be due to edema and pancreatitis. No evidence of cholelithiasis or cholecystitis CT Abdomen and Pelvis (IV contrast): acute pancreatitis; mild to moderate straning/fluid about head/neck of pancreas. mild stranding about tail of pancreas. No definite pancreatic necrosis. No discrete peripancreatic collection. No gallstones. No extrahepatic biliary duct dilatation 2) Alcohol use Alcohol Withdrawal Librium taper (day 3) Folic acid 1mg PO daily MVI 1 tab PO daily Thiamine 100mg PO daily CIWA protocol Seizure/aspiration precautions Alcohol level <10 UDS: negative Hepatitis negative 3) Leukocytosis Ordered for repeat chest xray today: no active disease ordered for ESR, CRP, and procalcitonin Afebrile Continue to monitor 4) Tachycardia possible due to pain Ordered for d-dimer, TSH 5) Hypertriglyceridemia Start Gemfibrozil 600mg PO bid Tchol - 292, Trig 1573, Hdl 35, LDL <30 6) Prophylaxis SCDs Heparin 5000 U SC Q12h Pepcid 20 mg PO bid NS 100cc/hr
--- NOTE | 2016-09-25 11:29 | RAD ---
HISTORY: elavted white count COMPARISON: No prior. TECHNIQUE: Chest PA and lateral FINDINGS: LUNGS: Linear scar/ atelectasis lateral left lung base. No infiltrate. PLEURA: No significant pleural effusion identified. No pneumothorax apparent. CARDIOVASCULAR: Normal. OSSEOUS STRUCTURES: No significant abnormalities. VISUALIZED UPPER ABDOMEN: Normal. OTHER FINDINGS: None. IMPRESSION: No active disease.
[2016-09-25] MEDS: Thiamine 100 mg/ml Inj IV SCH (14:24)
[2016-09-26] MEDS: Sodium Chloride 0.9% 1,000 ML IV SCH ×3 (00:11→20:50)
[2016-09-26 08:06] LABS: BASO # 0.1 K/uL (0.0-0.2); BASO % 0.6 % (0.0-2.0); EOS # 0.2 K/uL (0.0-0.7); EOS % 1.5 % (0.0-4.0); HEMATOCRIT 35.2 % (34.0-47.0); LYMPH # 2.2 K/uL (1.0-4.3); LYMPH % 16.5 % (20.0-40.0); MEAN CELL VOLUME 85.3 fL (81.0-99.0); MEAN CORPUSCULAR HGB CONC 32.8 g/dL (33.0-37.0); MEAN PLATELET VOLUME 9.7 fL (7.2-11.7); MONO % 7.3 % (0.0-10.0); RED CELL DISTRIBUTION WIDTH 13.2 % (11.5-14.5); WHITE BLOOD COUNT 13.2 K/uL (4.8-10.8)
[2016-09-26 08:24] LABS: CHLORIDE 103 mmol/L (98-107)
[2016-09-26 08:25] LABS: POTASSIUM 3.6 mmol/L (3.6-5.2); SODIUM 137 mmol/L (132-148)
[2016-09-26 08:27] LABS: ALB/GLOB RATIO 0.9 (1.0-2.1); AST/SGOT 24 U/L (14-36); BILIRUBIN,TOTAL 0.9 mg/dL (0.2-1.3); CARBON DIOXIDE 24 mmol/L (22-30); GFR AFRICAN-AMERICAN > 60
[2016-09-26 08:28] LABS: ALKALINE PHOSPHATASE 81 U/L (38-126); ALT/SGPT 21 U/L (9-52); BLOOD UREA NITROGEN 5 mg/dL (7-17); GLUCOSE,RANDOM 114 mg/dL (65-105); MAGNESIUM 2.2 mg/dL (1.6-2.3); PHOSPHOROUS 2.6 mg/dL (2.5-4.5)
[2016-09-26 08:41] LABS: THYROID STIMULATING HORMONE 4.51 mIU/L (0.46-4.68)
[2016-09-26] MEDS ORDERED: Pneumococcal 23-Valent Vaccine IM ONE (10:00)
--- NOTE | 2016-09-26 10:43 | NM ---
COMPARISON: September 25, 2016. Two-view chest TECHNIQUE: 7.4 mCi technetium 99-m Xe-133 Gas. 3.8 mCI technetium 99-m MAA administered intravenously. FINDINGS: VENTILATION COMPONENT: Heterogeneous ventilation with retention on the washout phase consistent with air trapping lower airway disease. PERFUSION COMPONENT: Heterogeneous distribution of radionuclide. No geographic, segmental, lobar abnormalities apparent on the present examination. IMPRESSION: Low Concordant results (preliminary interpretation) provided by [facility]. Procedure Completed: 00:30. Preliminary ([facility]) Report: Dictated and Authenticated: 00:56. Final Interpretation: 10:41. September 26, 2016. probability ventilation perfusion scan for pulmonary embolism.
--- NOTE | 2016-09-26 13:11 | RAD ---
HISTORY: Abdominal distension. COMPARISON: No prior. FINDINGS: BOWEL: Normal. No obstruction. No free air. BONES: Normal. OTHER FINDINGS: None. IMPRESSION: No significant or acute findings to account for/ related to the clinical presentation.
--- NOTE | 2016-09-26 13:45 | CP.PCM.PN ---
<Janel Nolasco V - Last Filed: 09/26/16 14:36> Objective - Vital Signs/Intake and Output Vital Signs (last 24 hours): Temp Pulse Resp BP Pulse Ox 98 F 91 H 20 124/76 96 09/26/16 08:30 09/26/16 08:30 09/26/16 08:30 09/26/16 08:30 09/26/16 08:30 Intake and Output: 09/26/16 09/26/16 06:59 18:59 Intake Total 1200 Balance 1200 - Medications Medications: Current Medications Chlordiazepoxide (Librium) 25 mg PO BID [facility] PRN Reason: Taper Stop: 09/27/16 17:59 Last Admin: 09/26/16 09:42 Dose: 25 mg Docusate Sodium (Colace) 100 mg PO BID [facility] Last Admin: 09/26/16 09:42 Dose: 100 mg Famotidine (Pepcid) 20 mg PO BID [facility] Last Admin: 09/26/16 09:42 Dose: 20 mg Folic Acid (Folic Acid) 1 mg PO DAILY [facility] Last Admin: 09/26/16 09:42 Dose: 1 mg Gemfibrozil (Lopid) 600 mg PO BID [facility] Last Admin: 09/26/16 09:42 Dose: 600 mg Heparin Sodium (Porcine) (Heparin) 5,000 units SC Q12 [facility] Last Admin: 09/26/16 09:43 Dose: 5,000 units Sodium Chloride (Sodium Chloride 0.9%) 1,000 mls @ 100 mls/hr IV .Q10H [facility] Last Admin: 09/26/16 06:56 Dose: 100 mls/hr Morphine Sulfate (Morphine) 2 mg IVP Q4 PRN PRN Reason: Pain, moderate (4-7) Last Admin: 09/26/16 07:17 Dose: 2 mg Ondansetron HCl (Zofran Inj) 4 mg IVP Q6H PRN PRN Reason: Nausea/Vomiting Simethicone (Mylicon Liq) 40 mg PO QID [facility] Thiamine HCl (Vitamin B1 Tab) 100 mg PO DAILY [facility] Last Admin: 09/26/16 09:42 Dose: 100 mg - Labs Labs: 09/26/16 07:46 09/26/16 07:46 PT 11.2 SECONDS (9.7-12.2) 09/23/16 08:11 INR 1.0 09/23/16 08:11 APTT 28 SECONDS (21-34) 09/23/16 08:11 Attending/Attestation - Attestation I have personally seen and examined this patient.: Yes I have fully participated in the care of the patient.: Yes I have reviewed all pertinent clinical information, including history, physical exam and plan: Yes Notes (Text): Patient seen, examined, and case discussed with day-time resident. Patient seen at bedside, reporting she is only wants ice chips, and reporting she has not gone to the bathroom. patient started on liquid diet yesterday. Repeated abdominal xray: negative. Encourage patient to eat. Continue IV fluids. Assessment/Plan 1) Acute Pancreatitis Gigi's criteria: 1 (Age)-->0 Risk factors: alcohol, hypertriglyceridemia Start on clear liquid NS at 100 cc/hour Morphine 2 mg IVP q4h prn for moderate pain Tchol - 292, Trig 1573, Hdl 35, LDL <30 Start Gemfibrozil 600mg PO bid Zofran 4 mg IVP q6h prn for nausea/vomiting Abdominal US (09/23/16): mild hepatomegaly with findings suggestive of mild to moderate hepatic steatosis. hypoechonic echotexture could be due to edema and pancreatitis. No evidence of cholelithiasis or cholecystitis CT Abdomen and Pelvis (IV contrast): acute pancreatitis; mild to moderate straning/fluid about head/neck of pancreas. mild stranding about tail of pancreas. No definite pancreatic necrosis. No discrete peripancreatic collection. No gallstones. No extrahepatic biliary duct dilatation Flat Abdominal xray (09/26/16): negative Simethicone 40mg QID 2) Alcohol use Alcohol Withdrawal Librium taper (day 4) Folic acid 1mg PO daily MVI 1 tab PO daily Thiamine 100mg PO daily CIWA protocol Seizure/aspiration precautions Alcohol level <10 UDS: negative Hepatitis negative 3) Leukocytosis Repeat chest xray (09/25) no active disease ESR: 70, CRP: >15.00 and procalcitonin low Afebrile Downtrending Blood culture (09/23/16): no growth after 3days Urine culture: no growth 4) Tachycardia Normal heart rate V/Q scan: low TSH: within normal Elevated d-dimer Venous dopplers completed: pending report 5) Hypertriglyceridemia Start Gemfibrozil 600mg PO bid Tchol - 292, Trig 1573, Hdl 35, LDL <30 6) Prophylaxis SCDs Heparin 5000 U SC Q12h Pepcid 20 mg PO bid NS 100cc/hr <Latricia Good - Last Filed: 09/26/16 17:54> Subjective - Date & Time of Evaluation Date of Evaluation: 09/26/16 Time of Evaluation: 09:00 - Subjective Subjective: Medicine Progress Note- Dr. Nolasco's Service: Patient seen and examined at bedside this AM. Patient reports she was only able to tolerate her Jello this AM. She states she feels constipated and has not had BM in 7 days. She is not hungry secondary to "bloating". Admits she had 9/10 abdominal pain this AM, which improved with pain medication. No pain after pain med. Denies nausea, vomiting, chest pain, diarrhea. Objective - Vital Signs/Intake and Output Vital Signs (last 24 hours): Temp Pulse Resp BP Pulse Ox 98 F 91 H 20 124/76 96 09/26/16 08:30 09/26/16 08:30 09/26/16 08:30 09/26/16 08:30 09/26/16 08:30 Intake and Output: 09/26/16 09/26/16 06:59 18:59 Intake Total 1200 Balance 1200 - Medications Medications: Current Medications Chlordiazepoxide (Librium) 25 mg PO BID [facility] PRN Reason: Taper Stop: 09/27/16 17:59 Last Admin: 09/26/16 09:42 Dose: 25 mg Docusate Sodium (Colace) 100 mg PO BID [facility] Last Admin: 09/26/16 09:42 Dose: 100 mg Famotidine (Pepcid) 20 mg PO BID [facility] Last Admin: 09/26/16 09:42 Dose: 20 mg Folic Acid (Folic Acid) 1 mg PO DAILY [facility] Last Admin: 09/26/16 09:42 Dose: 1 mg Gemfibrozil (Lopid) 600 mg PO BID [facility] Last Admin: 09/26/16 09:42 Dose: 600 mg Heparin Sodium (Porcine) (Heparin) 5,000 units SC Q12 [facility] Last Admin: 09/26/16 09:43 Dose: 5,000 units Sodium Chloride (Sodium Chloride 0.9%) 1,000 mls @ 100 mls/hr IV .Q10H [facility] Last Admin: 09/26/16 06:56 Dose: 100 mls/hr Morphine Sulfate (Morphine) 2 mg IVP Q4 PRN PRN Reason: Pain, moderate (4-7) Last Admin: 09/26/16 07:17 Dose: 2 mg Ondansetron HCl (Zofran Inj) 4 mg IVP Q6H PRN PRN Reason: Nausea/Vomiting Thiamine HCl (Vitamin B1 Tab) 100 mg PO DAILY [facility] Last Admin: 09/26/16 09:42 Dose: 100 mg - Labs Labs: 09/26/16 07:46 09/26/16 07:46 PT 11.2 SECONDS (9.7-12.2) 09/23/16 08:11 INR 1.0 09/23/16 08:11 APTT 28 SECONDS (21-34) 09/23/16 08:11 - Constitutional Appears: No Acute Distress - Head Exam Head Exam: NORMAL INSPECTION, NORMOCEPHALIC - Eye Exam Eye Exam: EOMI, Normal appearance - ENT Exam ENT Exam: Mucous Membranes Moist - Neck Exam Neck Exam: Full ROM, Normal Inspection - Respiratory Exam Respiratory Exam: Clear to Ausculation Bilateral, NORMAL BREATHING PATTERN - Cardiovascular Exam Cardiovascular Exam: REGULAR RHYTHM, +S1, +S2 - GI/Abdominal Exam GI & Abdominal Exam: Distended, Soft, Tenderness, Diminished Bowel Sounds - Extremities Exam Extremities Exam: Full ROM, Normal Inspection - Back Exam Back Exam: NORMAL INSPECTION - Neurological Exam Neurological Exam: Alert, Awake, Oriented x3 - Psychiatric Exam Psychiatric exam: Normal Affect, Normal Mood - Skin Skin Exam: Dry, Warm Assessment and Plan - Assessment and Plan (Free Text) Assessment: 1. Acute Pancreatitis Likely secondary to alcohol use and hypertriglyceridemia Lipase 534 from 988 on admission. Trig - 1573. * Continue clear liquid diet. Will advance as tolerated. * NS at 100 cc/hour * Morphine 2 mg IVP q4h prn for moderate pain * Zofran 4 mg IVP q6h prn for nausea/vomiting Imaging: Abdominal US (09/23/16): mild hepatomegaly with findings suggestive of mild to moderate hepatic steatosis. hypoechonic echotexture could be due to edema and pancreatitis. No evidence of cholelithiasis or cholecystitis CT Abdomen and Pelvis (IV contrast): acute pancreatitis; mild to moderate straning/fluid about head/neck of pancreas. mild stranding about tail of pancreas. No definite pancreatic necrosis. No discrete peripancreatic collection. No gallstones. No extrahepatic biliary duct dilatation 2. Alcohol Abuse Librium taper - day #4 Folic acid/MV/Thiamine CIWA protocol Seizure/aspiration precautions Alcohol level <10 UDS positive for opiates - was given pain meds in the ER and this sample was collected after Hepatitis negative 3. Leukocytosis WBC = 13.2 no bands. Improved from yesterday 17.1. Afebrile. Likely due to pancreatitis Procalcitonin WNL ESR, CRP elevated Blood cultures (09/23) - negative for 72 hours Urine culture (09/23) - negative f/u CBC in the AM Monitor 4. Hypertriglyceridemia Trig - 1573. (Tchol 293, HDL 35, LDL < 30) Gemfibrozil 600mg PO BID 5. Hypokalemia K = 3.6 this Am Mg = 2.2 f/u in the Am 6. Elevated D-Dimer V/Q scan low probability for PE Left LE dopplers negative 7. Constipation Abdominal flat plate done 09/26/16 was normal. Start Simethicone PO Miralax X 1 ordered for today Encouraged to ambulate 8. Prophylactic measure SCDs Heparin 5000 U SC Q12h Pepcid 20 mg IVP daily NS 100cc/hr
[2016-09-26] MEDS: Simethicone 40 mg/0.6 ml Liquid (30 ml) PO SCH ×2 (17:11→21:04)
[2016-09-26] MEDS ORDERED: POLYETHYLENE GLYCOL 3350 17 GM/Dose PACKET PO ONE (17:20)
[2016-09-27] MEDS: Sodium Chloride 0.9% 1,000 ML IV SCH ×2 (06:51→16:50)
[2016-09-27 08:09] LABS: BASO # 0.1 K/uL (0.0-0.2); EOS # 0.2 K/uL (0.0-0.7); EOS % 2.1 % (0.0-4.0); HEMATOCRIT 37.2 % (34.0-47.0); LYMPH # 2.5 K/uL (1.0-4.3); LYMPH % 22.1 % (20.0-40.0); MEAN CELL VOLUME 85.9 fL (81.0-99.0); MEAN CORPUSCULAR HEMOGLOBIN 28.3 pg (27.0-31.0); MEAN PLATELET VOLUME 9.2 fL (7.2-11.7); MONO # 0.8 K/uL (0.0-0.8); MONO % 7.5 % (0.0-10.0); RED CELL DISTRIBUTION WIDTH 13.3 % (11.5-14.5); WHITE BLOOD COUNT 11.3 K/uL (4.8-10.8)
[2016-09-27 08:25] LABS: CHLORIDE 103 mmol/L (98-107)
[2016-09-27 08:26] LABS: POTASSIUM 3.5 mmol/L (3.6-5.2); SODIUM 138 mmol/L (132-148)
[2016-09-27 08:28] LABS: ALB/GLOB RATIO 0.9 (1.0-2.1); ALKALINE PHOSPHATASE 85 U/L (38-126); ALT/SGPT 23 U/L (9-52); AST/SGOT 30 U/L (14-36); BILIRUBIN,TOTAL 0.7 mg/dL (0.2-1.3); BLOOD UREA NITROGEN 6 mg/dL (7-17); CARBON DIOXIDE 27 mmol/L (22-30); GFR AFRICAN-AMERICAN > 60; GLUCOSE,RANDOM 123 mg/dL (65-105); TOTAL PROTEIN 6.9 g/dL (6.3-8.3)
[2016-09-27 08:29] LABS: CALCIUM 8.3 mg/dl (8.6-10.4); MAGNESIUM 2.2 mg/dL (1.6-2.3)
--- NOTE | 2016-09-27 09:27 | CP.PCM.PN ---
Addendum entered and electronically signed by Latricia Good DO 09/27/16 14: 31: Morphine 2 mg IVP changed from Q4Hto Q6H prn for pain Original Note: <Latricia Good - Last Filed: 09/27/16 14:29> Subjective - Date & Time of Evaluation Date of Evaluation: 09/27/16 Time of Evaluation: 08:00 - Subjective Subjective: Medicine Progress Note- Dr. Nolasco's Service: Patient seen and examined at bedside this AM. Patient drank her tea this morning. She has not been ambulating. She states she feels constipated and bloated still today and that Miralax was not given. EMR checked and patient did receive Miralax. She is asking for coffee since she feels that will make her have BM. She states feels distended. Denies nausea, vomiting, chest pain, diarrhea. Objective - Vital Signs/Intake and Output Vital Signs (last 24 hours): Temp Pulse Resp BP Pulse Ox 97.5 F L 98 H 20 113/71 96 09/27/16 00:15 09/27/16 00:15 09/27/16 00:15 09/27/16 00:15 09/27/16 00:15 Intake and Output: 09/27/16 09/27/16 06:59 18:59 Intake Total 1050 Balance 1050 - Medications Medications: Current Medications Chlordiazepoxide (Librium) 25 mg PO DAILY [facility] PRN Reason: Taper Stop: 09/27/16 17:59 Last Admin: 09/26/16 09:42 Dose: 25 mg Docusate Sodium (Colace) 100 mg PO BID [facility] Last Admin: 09/26/16 17:10 Dose: 100 mg Famotidine (Pepcid) 20 mg PO BID [facility] Last Admin: 09/26/16 17:10 Dose: 20 mg Folic Acid (Folic Acid) 1 mg PO DAILY [facility] Last Admin: 09/26/16 09:42 Dose: 1 mg Gemfibrozil (Lopid) 600 mg PO BID [facility] Last Admin: 09/26/16 17:10 Dose: 600 mg Heparin Sodium (Porcine) (Heparin) 5,000 units SC Q12 [facility] Last Admin: 09/26/16 21:03 Dose: 5,000 units Sodium Chloride (Sodium Chloride 0.9%) 1,000 mls @ 100 mls/hr IV .Q10H [facility] Last Admin: 09/27/16 06:51 Dose: 100 mls/hr Morphine Sulfate (Morphine) 2 mg IVP Q4 PRN PRN Reason: Pain, moderate (4-7) Last Admin: 09/27/16 02:35 Dose: 2 mg Ondansetron HCl (Zofran Inj) 4 mg IVP Q6H PRN PRN Reason: Nausea/Vomiting Simethicone (Mylicon Liq) 40 mg PO QID [facility] Last Admin: 09/26/16 21:04 Dose: 40 mg Thiamine HCl (Vitamin B1 Tab) 100 mg PO DAILY [facility] Last Admin: 09/26/16 09:42 Dose: 100 mg - Labs Labs: 09/27/16 07:56 09/27/16 07:56 PT 11.2 SECONDS (9.7-12.2) 09/23/16 08:11 INR 1.0 09/23/16 08:11 APTT 28 SECONDS (21-34) 09/23/16 08:11 - Constitutional Appears: No Acute Distress - Head Exam Head Exam: NORMAL INSPECTION, NORMOCEPHALIC - Eye Exam Eye Exam: EOMI, Normal appearance - ENT Exam ENT Exam: Mucous Membranes Moist - Neck Exam Neck Exam: Normal Inspection - Respiratory Exam Respiratory Exam: Clear to Ausculation Bilateral, NORMAL BREATHING PATTERN - Cardiovascular Exam Cardiovascular Exam: REGULAR RHYTHM, +S1, +S2 - GI/Abdominal Exam GI & Abdominal Exam: Distended, Tenderness, Hypoactive Bowel Sounds. absent: Firm, Guarding, Rigid - Extremities Exam Extremities Exam: Full ROM, Normal Inspection. absent: Pedal Edema - Back Exam Back Exam: NORMAL INSPECTION - Neurological Exam Neurological Exam: Alert, Awake, Oriented x3 - Psychiatric Exam Psychiatric exam: Normal Affect, Normal Mood - Skin Skin Exam: Normal Color, Warm Assessment and Plan - Assessment and Plan (Free Text) Assessment: 1. Acute Pancreatitis Likely secondary to alcohol use and hypertriglyceridemia Lipase 534 from 988 on admission. Trig - 1573. * Will advance diet to low fat heart healthy today. * NS at 100 cc/hour * Morphine 2 mg IVP q4h prn for moderate pain * Zofran 4 mg IVP q6h prn for nausea/vomiting Imaging: Abdominal US (09/23/16): mild hepatomegaly with findings suggestive of mild to moderate hepatic steatosis. hypoechonic echotexture could be due to edema and pancreatitis. No evidence of cholelithiasis or cholecystitis CT Abdomen and Pelvis (IV contrast): acute pancreatitis; mild to moderate straning/fluid about head/neck of pancreas. mild stranding about tail of pancreas. No definite pancreatic necrosis. No discrete peripancreatic collection. No gallstones. No extrahepatic biliary duct dilatation 2. Alcohol Abuse Librium taper - day #5 Folic acid/MV/Thiamine [facility] protocol Seizure/aspiration precautions Alcohol level <10 UDS positive for opiates - was given pain meds in the ER and this sample was collected after Hepatitis negative 3. Leukocytosis WBC = 11.3 no bands. Improved from 09/25/16 WBC 17.1. Afebrile. Likely due to pancreatitis Procalcitonin WNL ESR, CRP elevated Blood cultures (09/23) - negative for 3 days Urine culture (09/23) - negative f/u CBC in the AM Monitor 4. Hypertriglyceridemia Trig - 1573. (Tchol 293, HDL 35, LDL < 30) Gemfibrozil 600mg PO BID 5. Hypokalemia K = 3.5 this Am. KCl 40 PO efrain ordered. Mg = 2.2 f/u in the Am 6. Elevated D-Dimer V/Q scan low probability for PE Left LE dopplers negative 7. Constipation Abdominal flat plate done 09/26/16 was normal. Simethicone PO Miralax X 1 given last night Lactulose X1 given. Patient had BM today. Encouraged to ambulate 8. Prophylactic measure SCDs Heparin 5000 U SC Q12h Pepcid 20 mg IVP daily NS 100cc/hr <Janel Nolasco V - Last Filed: 09/27/16 23:42> Objective - Vital Signs/Intake and Output Vital Signs (last 24 hours): Temp Pulse Resp BP Pulse Ox 98.4 F 87 20 124/85 97 09/27/16 16:15 09/27/16 16:15 09/27/16 16:15 09/27/16 16:15 09/27/16 16:15 Intake and Output: 09/27/16 09/28/16 18:59 06:59 Intake Total 1280 1000 Balance 1280 1000 - Medications Medications: Current Medications Docusate Sodium (Colace) 100 mg PO BID [facility] Last Admin: 09/27/16 17:38 Dose: 100 mg Famotidine (Pepcid) 20 mg PO BID [facility] Last Admin: 09/27/16 17:38 Dose: 20 mg Folic Acid (Folic Acid) 1 mg PO DAILY [facility] Last Admin: 09/27/16 10:21 Dose: 1 mg Gemfibrozil (Lopid) 600 mg PO BID [facility] Last Admin: 09/27/16 17:45 Dose: 600 mg Heparin Sodium (Porcine) (Heparin) 5,000 units SC Q12 [facility] Last Admin: 09/27/16 22:10 Dose: 5,000 units Sodium Chloride (Sodium Chloride 0.9%) 1,000 mls @ 100 mls/hr IV .Q10H [facility] Last Admin: 09/27/16 16:50 Dose: Not Given Morphine Sulfate (Morphine) 2 mg IVP Q6H PRN PRN Reason: Pain, moderate (4-7) Last Admin: 09/27/16 22:11 Dose: 2 mg Ondansetron HCl (Zofran Inj) 4 mg IVP Q6H PRN PRN Reason: Nausea/Vomiting Simethicone (Mylicon Liq) 40 mg PO QID [facility] Last Admin: 09/27/16 22:10 Dose: 40 mg Thiamine HCl (Vitamin B1 Tab) 100 mg PO DAILY [facility] Last Admin: 09/27/16 10:21 Dose: 100 mg - Labs Labs: 09/27/16 07:56 09/27/16 07:56 PT 11.2 SECONDS (9.7-12.2) 09/23/16 08:11 INR 1.0 09/23/16 08:11 APTT 28 SECONDS (21-34) 09/23/16 08:11 Attending/Attestation - Attestation I have personally seen and examined this patient.: Yes I have fully participated in the care of the patient.: Yes I have reviewed all pertinent clinical information, including history, physical exam and plan: Yes Notes (Text): Patient seen, examined and case discussed with day-time resident. Patient seen this morning, patient reporting abdominal pain, reports it has improved, but reports it is persistent and afraid to take liquids, though apple juices are empty at bedside. Patient denies nausea, denies vomitting, denies symptoms of withdrawal from alcohol. Patient received dose of Miralax and had a bowel movement today, confirmed with nursing staff. Patient is reporting persistent abdominal pain, but appears very comfortable at bedside, sleeping peaceful. Concern for possible pain seeking? GI consult-->other causes for abdominal pain, patient is being treated for pancreatitis (alcohol and hypertriglyceridemia) no stones noted on CT nor AB US Will reassess patient in morning if needs further imaging Assessment/Plan 1. Acute Pancreatitis Likely secondary to alcohol use and hypertriglyceridemia Lipase 534 from 988 on admission. Trig - 1573. * Will advance diet to low fat heart healthy today. * NS at 100 cc/hour * Morphine 2 mg IVP q6h prn for moderate pain * Zofran 4 mg IVP q6h prn for nausea/vomiting Imaging: Abdominal US (09/23/16): mild hepatomegaly with findings suggestive of mild to moderate hepatic steatosis. hypoechonic echotexture could be due to edema and pancreatitis. No evidence of cholelithiasis or cholecystitis CT Abdomen and Pelvis (IV contrast): acute pancreatitis; mild to moderate straning/fluid about head/neck of pancreas. mild stranding about tail of pancreas. No definite pancreatic necrosis. No discrete peripancreatic collection. No gallstones. No extrahepatic biliary duct dilatation GI consult-->r/o other causes in light of persistent abdominal pain; being treated for pancreatitis 2. Alcohol Abuse Librium taper - day #5 completes today Folic acid/MV/Thiamine CIWA protocol Seizure/aspiration precautions Alcohol level <10 UDS positive for opiates - was given pain meds in the ER and this sample was collected after Hepatitis negative 3. Leukocytosis WBC = 11.3 no bands. Improved from 09/25/16 WBC 17.1. Afebrile. Likely due to pancreatitis Procalcitonin WNL ESR, CRP elevated Blood cultures (09/23) - negative for 4 days Urine culture (09/23) - negative f/u CBC in the AM Monitor 4. Hypertriglyceridemia Trig - 1573. (Tchol 293, HDL 35, LDL < 30) Gemfibrozil 600mg PO BID 5. Hypokalemia K = 3.5 this Am. KCl 40 PO efrain ordered. Mg = 2.2 f/u in the Am 6. Elevated D-Dimer V/Q scan low probability for PE Left LE dopplers negative 7. Constipation Abdominal flat plate done 09/26/16 was normal. Simethicone PO Miralax X 1 given last night Lactulose X1 given. Patient had BM today. Encouraged to ambulate 8. Prophylactic measure SCDs Heparin 5000 U SC Q12h Pepcid 20 mg IVP daily NS 100cc/hr
[2016-09-27] MEDS ORDERED: Potassium Chloride 20 mEq/15 ml LIQ UD PO ONE (09:30)
[2016-09-27] MEDS: Simethicone 40 mg/0.6 ml Liquid (30 ml) PO SCH ×4 (10:21→22:10)
[2016-09-28 02:37] VITALS: BP 101/69; PULSE 85; TEMP 98.3; O2SAT 94
[2016-09-28 06:32] LABS: CHLORIDE 102 mmol/L (98-107); POTASSIUM 3.9 mmol/L (3.6-5.2); SODIUM 136 mmol/L (132-148)
[2016-09-28 06:34] LABS: ALKALINE PHOSPHATASE 122 U/L (38-126); ALT/SGPT 27 U/L (9-52); AST/SGOT 45 U/L (14-36); BILIRUBIN,TOTAL 0.7 mg/dL (0.2-1.3); BLOOD UREA NITROGEN 5 mg/dL (7-17); CARBON DIOXIDE 26 mmol/L (22-30); GFR AFRICAN-AMERICAN > 60; TOTAL PROTEIN 7.1 g/dL (6.3-8.3)
[2016-09-28 06:35] LABS: CALCIUM 8.9 mg/dl (8.6-10.4); GLUCOSE,RANDOM 110 mg/dL (65-105); MAGNESIUM 1.9 mg/dL (1.6-2.3); PHOSPHOROUS 4.7 mg/dL (2.5-4.5)
[2016-09-28 07:00] LABS: BASO # 0.1 K/uL (0.0-0.2); BASO % 0.9 % (0.0-2.0); EOS # 0.2 K/uL (0.0-0.7); EOS % 2.2 % (0.0-4.0); HEMATOCRIT 38.5 % (34.0-47.0); LYMPH # 3.2 K/uL (1.0-4.3); LYMPH % 30.1 % (20.0-40.0); MEAN CELL VOLUME 85.7 fL (81.0-99.0); MEAN CORPUSCULAR HEMOGLOBIN 28.1 pg (27.0-31.0); MEAN CORPUSCULAR HGB CONC 32.8 g/dL (33.0-37.0); MEAN PLATELET VOLUME 8.9 fL (7.2-11.7); MONO % 9.2 % (0.0-10.0); NRBC % 0.1 % (0.0-2.0); RED CELL DISTRIBUTION WIDTH 13.6 % (11.5-14.5); WHITE BLOOD COUNT 10.7 K/uL (4.8-10.8)
--- NOTE | 2016-09-28 07:01 | CP.PCM.CON ---
<Ora Rollins - Last Filed: 09/28/16 08:35> History of Present Illness - History of Present Illness History of Present Illness: Gastroenterology Fellow/PGY4 Consult Note 56 year old female with history of Hypertension, Hyperlipidemia, and Asthma presenting with abdominal pain. Patient notes sudden, severe, diffuse abdominal discomfort, pain scale 9/10 leading to inpatient stay. Since admission, she notes her pain has greatly improved with continued slight discomfort right lower abdomen to mid-pelvis. Active treatment of alcohol and hypertriglyceridemia pancreatitis since 09/23 and noted asymptomatic bacteriuria on admission with negative urine culture. Patient notes no bowel movement since admission until yesterday with Lactulose. She notes it was a small amount of formed stool with usual daily normal bowel habits at home. Denies nausea, vomiting, hematemesis, acid reflux, indigestion, heartburn, bloating, diarrhea, melena, hematochezia, or unintentional weight loss. Prior EGD and colonoscopy showing hiatal hernia, chronic H. pylori gastritis, focal intestinal metaplasia, sigmoid/descending diverticulosis, and internal/external hemorrhoids. Family- denies Colon cancer, sister-vaginal cancer, Social- 05/04 pint whiskey on weekends Wednesday/Wednesday, 25 pack year, denies illicit drug use Surgery- , back surgery, left elbow surgery Review of Systems - Review of Systems Review of Systems: A 12-point review of systems negative except for as above Past Patient History - Infectious Disease Hx of Infectious Diseases: None - Past Medical History & Family History Past Medical History?: Yes - Past Social History Smoking Status: Heavy Smoker > 10 Cigarettes Daily - CARDIAC Hx Cardiac Disorders: Yes Hx Hypercholesterolemia: Yes - PULMONARY Hx Respiratory Disorders: Yes Hx Asthma: Yes - NEUROLOGICAL Hx Neurological Disorder: No - HEENT Hx HEENT Problems: No - RENAL Hx Chronic Kidney Disease: No - ENDOCRINE/METABOLIC Hx Endocrine Disorders: No - HEMATOLOGICAL/ONCOLOGICAL Hx Blood Disorders: No - INTEGUMENTARY Hx Dermatological Problems: No - MUSCULOSKELETAL/RHEUMATOLOGICAL Hx Musculoskeletal Disorders: No Hx Falls: No Hx Fractures: No - GASTROINTESTINAL Hx Gastrointestinal Disorders: No - GENITOURINARY/GYNECOLOGICAL Hx Genitourinary Disorders: No - PSYCHIATRIC Hx Psychophysiologic Disorder: No Hx Substance Use: No - SURGICAL HISTORY Hx Surgeries: Yes Hx Arthroscopy: Yes (LEFT SHOULDER AND LEFT ELBOW; FALL 2009) Hx Section: Yes (X1) - ANESTHESIA Hx Anesthesia: Yes Hx Anesthesia Reactions: No Hx Malignant Hyperthermia: No Meds Home Medications: Home Medication List Medication Instructions Recorded Confirmed Type Gemfibrozil [Lopid] 600 mg PO BID #60 tab 09/28/16 Rx Allergies/Adverse Reactions: Allergies Allergy/AdvReac Type Severity Reaction Status Date / Time No Known Allergies Allergy Verified 09/22/16 23:04 - Medications Medications: Current Medications Docusate Sodium (Colace) 100 mg PO BID [facility] Last Admin: 09/27/16 17:38 Dose: 100 mg Famotidine (Pepcid) 20 mg PO BID [facility] Last Admin: 09/27/16 17:38 Dose: 20 mg Folic Acid (Folic Acid) 1 mg PO DAILY [facility] Last Admin: 09/27/16 10:21 Dose: 1 mg Gemfibrozil (Lopid) 600 mg PO BID [facility] Last Admin: 09/27/16 17:45 Dose: 600 mg Heparin Sodium (Porcine) (Heparin) 5,000 units SC Q12 [facility] Last Admin: 09/27/16 22:10 Dose: 5,000 units Sodium Chloride (Sodium Chloride 0.9%) 1,000 mls @ 100 mls/hr IV .Q10H [facility] Last Admin: 09/27/16 16:50 Dose: Not Given Morphine Sulfate (Morphine) 2 mg IVP Q6H PRN PRN Reason: Pain, moderate (4-7) Last Admin: 09/27/16 22:11 Dose: 2 mg Ondansetron HCl (Zofran Inj) 4 mg IVP Q6H PRN PRN Reason: Nausea/Vomiting Simethicone (Mylicon Liq) 40 mg PO QID [facility] Last Admin: 09/27/16 22:10 Dose: 40 mg Thiamine HCl (Vitamin B1 Tab) 100 mg PO DAILY [facility] Last Admin: 09/27/16 10:21 Dose: 100 mg Physical Exam - Constitutional Appears: Non-toxic, No Acute Distress - Head Exam Head Exam: ATRAUMATIC, NORMOCEPHALIC - Eye Exam Eye Exam: EOMI, PERRL Pupil Exam: PERRL. absent: Miosis, Mydriatic - ENT Exam ENT Exam: Mucous Membranes Moist, Normal Oropharynx - Neck Exam Neck exam: Positive for: Full Rom, Normal Inspection - Respiratory Exam Respiratory Exam: Clear to Auscultation Bilateral. absent: Rales, Rhonchi, Wheezes - Cardiovascular Exam Cardiovascular Exam: RRR, +S1, +S2. absent: Gallop, Rubs - GI/Abdominal Exam GI & Abdominal Exam: Normal Bowel Sounds, Soft, Tenderness. absent: Distended, Firm, Guarding, Organomegaly, Rebound, Rigid Additional comments: RLQ and mid lower abdomen discomfort to palpation - Extremities Exam Extremities exam: Positive for: full ROM. Negative for: pedal edema - Neurological Exam Neurological exam: Alert - Psychiatric Exam Psychiatric exam: Normal Affect, Normal Mood - Skin Skin Exam: Dry, Intact, Normal Color, Warm Results - Vital Signs Recent Vital Signs: Last Vital Signs Temp 98.3 F 09/28/16 00:00 Pulse 85 09/28/16 00:00 Resp 20 09/28/16 00:00 BP 101/69 09/28/16 00:00 Pulse Ox 94 L 09/28/16 00:00 - Labs Result Diagrams: 09/28/16 06:11 09/28/16 06:11 Labs: Laboratory Results - last 24 hr 09/27/16 09/27/16 09/28/16 07:56 07:56 06:11 WBC 11.3 H RBC 4.33 Hgb 12.2 Hct 37.2 MCV 85.9 MCH 28.3 MCHC 33.0 RDW 13.3 Plt Count 275 MPV 9.2 Neut % (Auto) 67.3 Lymph % (Auto) 22.1 [place] % (Auto) 7.5 Eos % (Auto) 2.1 Baso % (Auto) 1.0 Neut # 7.6 H Lymph # 2.5 [place] # 0.8 Eos # 0.2 Baso # 0.1 Sodium 138 136 Potassium 3.5 L 3.9 Chloride 103 102 Carbon Dioxide 27 26 Anion Gap 12 12 BUN 6 L 5 L Creatinine 0.6 L 0.6 L Est GFR ( Amer) > 60 > 60 Est GFR (Non-Af Amer) > 60 > 60 Random Glucose 123 H 110 H Calcium 8.3 L 8.9 Phosphorus 3.0 4.7 H Magnesium 2.2 1.9 Total Bilirubin 0.7 0.7 AST 30 45 H D ALT 23 27 Alkaline Phosphatase 85 122 C-React Prot High Sens Total Protein 6.9 7.1 Albumin 3.3 L 3.5 Globulin 3.6 3.7 Albumin/Globulin Ratio 0.9 L 1.0 Lipase 222 09/28/16 06:11 WBC RBC Hgb Hct MCV MCH MCHC RDW Plt Count MPV Neut % (Auto) Lymph % (Auto) [place] % (Auto) Eos % (Auto) Baso % (Auto) Neut # Lymph # [place] # Eos # Baso # Sodium Potassium Chloride Carbon Dioxide Anion Gap BUN Creatinine Est GFR ( Amer) Est GFR (Non-Af Amer) Random Glucose Calcium Phosphorus Magnesium Total Bilirubin AST ALT Alkaline Phosphatase C-React Prot High Sens > 15.00 H Total Protein Albumin Globulin Albumin/Globulin Ratio Lipase Assessment & Plan - Assessment and Plan (Free Text) Assessment: 56 year old female with history of Hypertension, Hyperlipidemia, and Asthma presenting with abdominal pain. Active treatment of alcohol and hypertriglyceridemia pancreatitis since 09/23 and noted asymptomatic bacteriuria on admission with negative urine culture. GI consultation for persistent abdominal pain. Prior EGD and colonoscopy 09/19/15 showing hiatal hernia, chronic H. pylori gastritis, focal intestinal metaplasia, sigmoid/descending diverticulosis, and internal/external hemorrhoids. Plan: >constipation >received Lactulose x 1- small BM >09/23 CT A/P - large stool burden right lower abdomen extending to lower mid abdomen >ordered Dulcolax POx1 >continue Miralax and Colace daily >counselled on increased fiber and water intake >tolerating heart healthy diet >thank you for opportunity to participate in the care of this patient <Aurelio Gordon - Last Filed: 09/28/16 09:02> Meds - Medications Medications: Current Medications Docusate Sodium (Colace) 100 mg PO BID [facility] Last Admin: 09/27/16 17:38 Dose: 100 mg Famotidine (Pepcid) 20 mg PO BID [facility] Last Admin: 09/27/16 17:38 Dose: 20 mg Folic Acid (Folic Acid) 1 mg PO DAILY [facility] Last Admin: 09/27/16 10:21 Dose: 1 mg Gemfibrozil (Lopid) 600 mg PO BID [facility] Last Admin: 09/27/16 17:45 Dose: 600 mg Heparin Sodium (Porcine) (Heparin) 5,000 units SC Q12 [facility] Last Admin: 09/27/16 22:10 Dose: 5,000 units Sodium Chloride (Sodium Chloride 0.9%) 1,000 mls @ 100 mls/hr IV .Q10H [facility] Last Admin: 09/27/16 16:50 Dose: Not Given Morphine Sulfate (Morphine) 2 mg IVP Q6H PRN PRN Reason: Pain, moderate (4-7) Last Admin: 09/27/16 22:11 Dose: 2 mg Ondansetron HCl (Zofran Inj) 4 mg IVP Q6H PRN PRN Reason: Nausea/Vomiting Pneumococcal Polyvalent Vaccine (Pneumovax 23 Vaccine) 0.5 ml IM .ONCE ONE Stop: 09/28/16 09:16 Polyethylene Glycol (Miralax) 17 gm PO DAILY [facility] Simethicone (Mylicon Liq) 40 mg PO QID [facility] Last Admin: 09/27/16 22:10 Dose: 40 mg Thiamine HCl (Vitamin B1 Tab) 100 mg PO DAILY [facility] Last Admin: 09/27/16 10:21 Dose: 100 mg Results - Vital Signs Recent Vital Signs: Last Vital Signs Temp 98.3 F 09/28/16 00:00 Pulse 85 09/28/16 00:00 Resp 20 09/28/16 00:00 BP 101/69 09/28/16 00:00 Pulse Ox 94 L 09/28/16 00:00 - Labs Result Diagrams: 09/28/16 06:11 09/28/16 06:11 Labs: Laboratory Results - last 24 hr 09/28/16 09/28/16 09/28/16 06:11 06:11 06:11 WBC 10.7 RBC 4.50 Hgb 12.6 Hct 38.5 MCV 85.7 MCH 28.1 MCHC 32.8 L RDW 13.6 Plt Count 330 MPV 8.9 Neut % (Auto) 57.6 Lymph % (Auto) 30.1 [place] % (Auto) 9.2 Eos % (Auto) 2.2 Baso % (Auto) 0.9 Neut # 6.2 Lymph # 3.2 [place] # 1.0 H Eos # 0.2 Baso # 0.1 Sodium 136 Potassium 3.9 Chloride 102 Carbon Dioxide 26 Anion Gap 12 BUN 5 L Creatinine 0.6 L Est GFR ( Amer) > 60 Est GFR (Non-Af Amer) > 60 Random Glucose 110 H Calcium 8.9 Phosphorus 4.7 H Magnesium 1.9 Total Bilirubin 0.7 AST 45 H D ALT 27 Alkaline Phosphatase 122 C-React Prot High Sens > 15.00 H Total Protein 7.1 Albumin 3.5 Globulin 3.7 Albumin/Globulin Ratio 1.0 Lipase 222 Attending/Attestation - Attestation I have personally seen and examined this patient.: Yes I have fully participated in the care of the patient.: Yes I have reviewed all pertinent clinical information: Yes Notes (Text): 09/28/16 08:55 I have seen and examined patient with GI fellow. Agree with above documentation with the following additions. In brief, this is a 56 year old female with history of HTN, hyperlipidemia, asthma, intermittent ETOH abuse who presents to hospital with complaint of sudden onset abdominal pain. She was initially admitted 4 days ago and was treated for acute pancreatitis thought to be related to elevated hypertriglycerides and combination alcohol abuse. GI called for evaluation of persistent abdominal pain despite medical management. She describes a sharp, intermittent, 6/10 intensity RLQ abdominal pain that was slightly improved after administration of lactulose and subsequent bowel movement yesterday. She denies nausea, vomiting, fever/chills, weight loss, rectal bleeding, or change in bowel habits. She had an EGD/colonoscopy in September 2015 which showed helicobacter pylori associated gastritis (unclear regarding treatment), diverticulosis, and internal hemorrhoids. HTN Hyperlipidemia Asthma Abdominal pain, constipation Acute pancreatitis, hypertriglyceridemia CT imaging from 09/23 reviewed by me, showing acute inflammatory changes in pancreatic head/neck, fecal retention - Low sodium, low fat/cholesterol diet as tolerated - Will initiate an aggressive bowel regimen to prevent ongoing constipation - Lipid management as per medical team - Encourage increased PO water and fiber intake - If tolerating diet, from GI perspective ok to discharge patient home with subsequent outpatient follow up. ETOH cessation counseling provided to patient. Will sign off case, please reconsult as necessary, thank you.
[2016-09-28] MEDS ORDERED: Bisacodyl 5mg EC Tab PO ONE (07:14)
--- NOTE | 2016-09-28 08:39 | CP.PCM.DIS ---
<Janel Nolasco V - Last Filed: 09/28/16 09:13> Provider - Provider Date of Admission: 09/23/16 01:50 Attending physician: Janel Nolasco, DO Hospital Course - Lab Results Lab Results: Micro Results 09/23/16 08:11 Blood Blood Culture - Final NO GROWTH AFTER 5 DAYS 09/23/16 08:11 Blood Gram Stain - Final TEST NOT PERFORMED 09/23/16 03:41 Urine,Clean Catch Urine Culture - Final No Growth (<1,000 CFU/ML) Most Recent Lab Values WBC 10.7 K/uL (4.8-10.8) 09/28/16 06:11 RBC 4.50 Mil/uL (3.80-5.20) 09/28/16 06:11 Hgb 12.6 g/dL (11.0-16.0) 09/28/16 06:11 Hct 38.5 % (34.0-47.0) 09/28/16 06:11 MCV 85.7 fL (81.0-99.0) 09/28/16 06:11 MCH 28.1 pg (27.0-31.0) 09/28/16 06:11 MCHC 32.8 g/dL (33.0-37.0) L 09/28/16 06:11 RDW 13.6 % (11.5-14.5) 09/28/16 06:11 Plt Count 330 K/uL (130-400) 09/28/16 06:11 MPV 8.9 fL (7.2-11.7) 09/28/16 06:11 Neut % (Auto) 57.6 % (50.0-75.0) 09/28/16 06:11 Lymph % (Auto) 30.1 % (20.0-40.0) 09/28/16 06:11 [place] % (Auto) 9.2 % (0.0-10.0) 09/28/16 06:11 Eos % (Auto) 2.2 % (0.0-4.0) 09/28/16 06:11 Baso % (Auto) 0.9 % (0.0-2.0) 09/28/16 06:11 Neut # 6.2 K/uL (1.8-7.0) 09/28/16 06:11 Lymph # 3.2 K/uL (1.0-4.3) 09/28/16 06:11 [place] # 1.0 K/uL (0.0-0.8) H 09/28/16 06:11 Eos # 0.2 K/uL (0.0-0.7) 09/28/16 06:11 Baso # 0.1 K/uL (0.0-0.2) 09/28/16 06:11 ESR 70 mm/hr (0-20) H 09/26/16 07:46 PT 11.2 SECONDS (9.7-12.2) 09/23/16 08:11 INR 1.0 09/23/16 08:11 APTT 28 SECONDS (21-34) 09/23/16 08:11 D-Dimer, Quantitative > 5250 ng/mlDDU (0-243) H 09/25/16 18:49 Sodium 136 mmol/L (132-148) 09/28/16 06:11 Potassium 3.9 mmol/L (3.6-5.2) 09/28/16 06:11 Chloride 102 mmol/L (98-107) 09/28/16 06:11 Carbon Dioxide 26 mmol/L (22-30) 09/28/16 06:11 Anion Gap 12 (10-20) 09/28/16 06:11 BUN 5 mg/dL (7-17) L 09/28/16 06:11 Creatinine 0.6 MG/DL (0.7-1.2) L 09/28/16 06:11 Est GFR ( Amer) > 60 09/28/16 06:11 Est GFR (Non-Af Amer) > 60 09/28/16 06:11 Random Glucose 110 mg/dL (65-105) H 09/28/16 06:11 Hemoglobin A1c 6.3 % (4.2-6.5) 09/23/16 08:11 Calcium 8.9 mg/dl (8.6-10.4) 09/28/16 06:11 Phosphorus 4.7 mg/dL (2.5-4.5) H 09/28/16 06:11 Magnesium 1.9 mg/dL (1.6-2.3) 09/28/16 06:11 Total Bilirubin 0.7 mg/dL (0.2-1.3) 09/28/16 06:11 AST 45 U/L (14-36) H D 09/28/16 06:11 ALT 27 U/L (9-52) 09/28/16 06:11 Alkaline Phosphatase 122 U/L (38-126) 09/28/16 06:11 C-React Prot High Sens > 15.00 mg/L (1.00-3.00) H 09/28/16 06:11 Total Protein 7.1 g/dL (6.3-8.3) 09/28/16 06:11 Albumin 3.5 g/dL (3.5-5.0) 09/28/16 06:11 Globulin 3.7 gm/dL (2.2-3.9) 09/28/16 06:11 Albumin/Globulin Ratio 1.0 (1.0-2.1) 09/28/16 06:11 Triglycerides 1573 mg/dL (0-149) H 09/23/16 08:11 Cholesterol 292 mg/dL (0-199) H 09/23/16 08:11 LDL Cholesterol Direct < 30 mg/dL (0-129) 09/23/16 08:11 HDL Cholesterol 35 mg/dL (30-70) 09/23/16 08:11 Amylase 156 U/L (30-110) H 09/23/16 08:11 Lipase 222 U/L (23-300) 09/28/16 06:11 Procalcitonin 0.28 NG/ML (0.19-0.49) 09/26/16 07:46 Free T4 0.99 ng/dL (0.78-2.19) 09/23/16 08:11 TSH 3rd Generation 4.51 mIU/L (0.46-4.68) 09/26/16 07:46 Urine Color Yellow (YELLOW) 09/23/16 07:00 Urine Clarity Clear (Clear) 09/23/16 07:00 Urine pH 6.0 (5.0-8.0) 09/23/16 07:00 Ur Specific Grubbs 1.010 (1.003-1.030) 09/23/16 07:00 Urine Protein Negative mg/dL (NEGATIVE) 09/23/16 07:00 Urine Glucose (UA) Normal mg/dL (Normal) 09/23/16 07:00 Urine Ketones Negative mg/dL (NEGATIVE) 09/23/16 07:00 Urine Blood Negative (NEGATIVE) 09/23/16 07:00 Urine Nitrate Negative (NEGATIVE) 09/23/16 07:00 Urine Bilirubin Negative (NEGATIVE) 09/23/16 07:00 Urine Urobilinogen Normal mg/dL (0.2-1.0) 09/23/16 07:00 Ur Leukocyte Esterase Neg Kaushal/uL (Negative) 09/23/16 07:00 Urine WBC (Auto) 1 /hpf (0-5) 09/23/16 07:00 Urine RBC (Auto) 1 /hpf (0-3) 09/23/16 07:00 Ur Squamous Epith Cells < 1 /hpf (0-5) 09/23/16 07:00 Urine Bacteria Occ (<OCC) H 09/22/16 23:51 Urine Opiates Screen Positive (NEGATIVE) 09/24/16 07:35 Urine Methadone Screen Negative (NEGATIVE) 09/24/16 07:35 Ur Barbiturates Screen Negative (NEGATIVE) 09/24/16 07:35 Ur Phencyclidine Scrn Negative (NEGATIVE) 09/24/16 07:35 Ur Amphetamines Screen Negative (NEGATIVE) 09/24/16 07:35 U Benzodiazepines Scrn Negative (NEGATIVE) 09/24/16 07:35 U Oth Cocaine Metabols Negative (NEGATIVE) 09/24/16 07:35 U Cannabinoids Screen Negative (NEGATIVE) 09/24/16 07:35 Alcohol, Quantitative < 10 mg/dl (0-10) 09/22/16 23:51 Hepatitis A IgM Ab Negative (NEGATIVE) 09/23/16 09:51 Hep Bs Antigen Negative (NEGATIVE) 09/23/16 09:51 Hep B Core IgM Ab Negative (NEGATIVE) 09/23/16 09:51 Hepatitis C Antibody Negative (NEGATIVE) 09/23/16 09:51 Discharge Plan - Discharge Medications Prescriptions: Gemfibrozil [Lopid] 600 mg PO BID #60 tab - Follow Up Plan Condition: FAIR Disposition: HOME/ ROUTINE Instructions: Gemfibrozil (By mouth), How to Stop Smoking (DC), Pancreatitis ( DC), Cigarette Smoking and Your Health (GEN), Alcohol Intoxication (DC), Abuse of Alcohol (DC), Acute Nausea and Vomiting (DC), Acute Abdominal Pain (DC), Acute Abdominal Pain (GEN) Additional Instructions: Patient is to follow up with PMD within 1-2 weeks and in 3 months to have routine labs drawn. Patient is to have a repeat fasting lipid panel in 3 months. Patient is to continue taking Gemfibrozil 600mg by mouth twice a day. Patient advised to cease binge drinking alcohol as this contributes to her pancreatitis. Patient advised to seek support in AA groups which patient agreed to. Patient instructed to return to the ED if her symptoms return. El paciente debe hacer un seguimiento con la PMD dentro de 1-2 semanas y en 3 meses para que los laboratorios de rutina aure extrados. Paciente es tener un panel de repeticin de lpidos en ayuno en 3 meses. El paciente debe continuar tomando Gemfibrozil 600mg por va oral dos veces al d a. El paciente aconseja dejar de beber alcohol en exceso, ya que esto contribuye a garcia pancreatitis. El paciente aconsej buscar apoyo en los grupos de AA que el paciente [place]. Paciente instruido a regresar a la [place] si michael sntomas regresan. Attending/Attestation - Attestation I have personally seen and examined this patient.: Yes I have fully participated in the care of the patient.: Yes I have reviewed all pertinent clinical information, including history, physical exam and plan: Yes Notes (Text): Patient seen, examined and case discussed with day-time resident. Patient denies acute complaints. Patient reports she feeling better. Patient is tolerating diet and happy she is have her coffee. Discussed with GI, patient is stable from their standpoint. No further workup. Discussed with patient, patient continue Gemfibrizol 600mg PO BID to help reduce her triglycerides and advised to foilow-up with PMD to repeat her lipid panel. Patient advised to stop drinking alcohol which is an additional risk factor. Patient advised to follow-up with her PMD. Patient verbalizes understanding and agrees. Discussed discharge order and discharge instructions with the resident. Patient is medically stable for discharge. Per GI, patient is stable for discharge This is a summary of patient's hospitalization. Please refer EMR for further details. Assessment/Plan 1. Acute Pancreatitis Likely secondary to alcohol use and hypertriglyceridemia Diet advanced as tolerated, patient denies acute complaints upon discharge Imaging: Abdominal US (09/23/16): mild hepatomegaly with findings suggestive of mild to moderate hepatic steatosis. hypoechonic echotexture could be due to edema and pancreatitis. No evidence of cholelithiasis or cholecystitis CT Abdomen and Pelvis (IV contrast): acute pancreatitis; mild to moderate straning/fluid about head/neck of pancreas. mild stranding about tail of pancreas. No definite pancreatic necrosis. No discrete peripancreatic collection. No gallstones. No extrahepatic biliary duct dilatation GI consult-->stable 2. Alcohol Abuse Completed Librium taper Seizure/aspiration precautions Alcohol level <10 UDS positive for opiates - was given pain meds in the ER and this sample was collected after Hepatitis negative Counselled to stop alcohol use 3. Leukocytosis normalized Likely due to pancreatitis Procalcitonin WNL ESR, CRP elevated Blood cultures (09/23) - negative for 5 days Urine culture (09/23) - negative Monitor 4. Hypertriglyceridemia Trig - 1573. (Tchol 293, HDL 35, LDL < 30) Gemfibrozil 600mg PO BID-->provided 1 month supply Patient advised to follow-up with PMD in 3-4 months for fasting lipid panel 5. Hypokalemia normalized 6. Elevated D-Dimer V/Q scan low probability for PE Left LE dopplers negative 7. Constipation resolved Patient is bowel movements. Tolerating diet. 8. Prophylactic measure SCDs Heparin 5000 U SC Q12h Pepcid 20 mg IVP daily <Sola Martinez - Last Filed: 09/28/16 13:32> Provider - Provider Date of Admission: 09/23/16 01:50 Attending physician: Janel Nolasco DO Time Spent in preparation of Discharge (in minutes): 45 Hospital Course - Lab Results Lab Results: Micro Results 09/23/16 08:11 Blood Blood Culture - Final NO GROWTH AFTER 5 DAYS 09/23/16 08:11 Blood Gram Stain - Final TEST NOT PERFORMED 09/23/16 03:41 Urine,Clean Catch Urine Culture - Final No Growth (<1,000 CFU/ML) Most Recent Lab Values WBC 10.7 K/uL (4.8-10.8) 09/28/16 06:11 RBC 4.50 Mil/uL (3.80-5.20) 09/28/16 06:11 Hgb 12.6 g/dL (11.0-16.0) 09/28/16 06:11 Hct 38.5 % (34.0-47.0) 09/28/16 06:11 MCV 85.7 fL (81.0-99.0) 09/28/16 06:11 MCH 28.1 pg (27.0-31.0) 09/28/16 06:11 MCHC 32.8 g/dL (33.0-37.0) L 09/28/16 06:11 RDW 13.6 % (11.5-14.5) 09/28/16 06:11 Plt Count 330 K/uL (130-400) 09/28/16 06:11 MPV 8.9 fL (7.2-11.7) 09/28/16 06:11 Neut % (Auto) 57.6 % (50.0-75.0) 09/28/16 06:11 Lymph % (Auto) 30.1 % (20.0-40.0) 09/28/16 06:11 [place] % (Auto) 9.2 % (0.0-10.0) 09/28/16 06:11 Eos % (Auto) 2.2 % (0.0-4.0) 09/28/16 06:11 Baso % (Auto) 0.9 % (0.0-2.0) 09/28/16 06:11 Neut # 6.2 K/uL (1.8-7.0) 09/28/16 06:11 Lymph # 3.2 K/uL (1.0-4.3) 09/28/16 06:11 [place] # 1.0 K/uL (0.0-0.8) H 09/28/16 06:11 Eos # 0.2 K/uL (0.0-0.7) 09/28/16 06:11 Baso # 0.1 K/uL (0.0-0.2) 09/28/16 06:11 ESR 70 mm/hr (0-20) H 09/26/16 07:46 PT 11.2 SECONDS (9.7-12.2) 09/23/16 08:11 INR 1.0 09/23/16 08:11 APTT 28 SECONDS (21-34) 09/23/16 08:11 D-Dimer, Quantitative > 5250 ng/mlDDU (0-243) H 09/25/16 18:49 Sodium 136 mmol/L (132-148) 09/28/16 06:11 Potassium 3.9 mmol/L (3.6-5.2) 09/28/16 06:11 Chloride 102 mmol/L (98-107) 09/28/16 06:11 Carbon Dioxide 26 mmol/L (22-30) 09/28/16 06:11 Anion Gap 12 (10-20) 09/28/16 06:11 BUN 5 mg/dL (7-17) L 09/28/16 06:11 Creatinine 0.6 MG/DL (0.7-1.2) L 09/28/16 06:11 Est GFR ( Amer) > 60 09/28/16 06:11 Est GFR (Non-Af Amer) > 60 09/28/16 06:11 Random Glucose 110 mg/dL (65-105) H 09/28/16 06:11 Hemoglobin A1c 6.3 % (4.2-6.5) 09/23/16 08:11 Calcium 8.9 mg/dl (8.6-10.4) 09/28/16 06:11 Phosphorus 4.7 mg/dL (2.5-4.5) H 09/28/16 06:11 Magnesium 1.9 mg/dL (1.6-2.3) 09/28/16 06:11 Total Bilirubin 0.7 mg/dL (0.2-1.3) 09/28/16 06:11 AST 45 U/L (14-36) H D 09/28/16 06:11 ALT 27 U/L (9-52) 09/28/16 06:11 Alkaline Phosphatase 122 U/L (38-126) 09/28/16 06:11 C-React Prot High Sens > 15.00 mg/L (1.00-3.00) H 09/28/16 06:11 Total Protein 7.1 g/dL (6.3-8.3) 09/28/16 06:11 Albumin 3.5 g/dL (3.5-5.0) 09/28/16 06:11 Globulin 3.7 gm/dL (2.2-3.9) 09/28/16 06:11 Albumin/Globulin Ratio 1.0 (1.0-2.1) 09/28/16 06:11 Triglycerides 1573 mg/dL (0-149) H 09/23/16 08:11 Cholesterol 292 mg/dL (0-199) H 09/23/16 08:11 LDL Cholesterol Direct < 30 mg/dL (0-129) 09/23/16 08:11 HDL Cholesterol 35 mg/dL (30-70) 09/23/16 08:11 Amylase 156 U/L (30-110) H 09/23/16 08:11 Lipase 222 U/L (23-300) 09/28/16 06:11 Procalcitonin 0.28 NG/ML (0.19-0.49) 09/26/16 07:46 Free T4 0.99 ng/dL (0.78-2.19) 09/23/16 08:11 TSH 3rd Generation 4.51 mIU/L (0.46-4.68) 09/26/16 07:46 Urine Color Yellow (YELLOW) 09/23/16 07:00 Urine Clarity Clear (Clear) 09/23/16 07:00 Urine pH 6.0 (5.0-8.0) 09/23/16 07:00 Ur Specific [place] 1.010 (1.003-1.030) 09/23/16 07:00 Urine Protein Negative mg/dL (NEGATIVE) 09/23/16 07:00 Urine Glucose (UA) Normal mg/dL (Normal) 09/23/16 07:00 Urine Ketones Negative mg/dL (NEGATIVE) 09/23/16 07:00 Urine Blood Negative (NEGATIVE) 09/23/16 07:00 Urine Nitrate Negative (NEGATIVE) 09/23/16 07:00 Urine Bilirubin Negative (NEGATIVE) 09/23/16 07:00 Urine Urobilinogen Normal mg/dL (0.2-1.0) 09/23/16 07:00 Ur Leukocyte Esterase Neg Kaushal/uL (Negative) 09/23/16 07:00 Urine WBC (Auto) 1 /hpf (0-5) 09/23/16 07:00 Urine RBC (Auto) 1 /hpf (0-3) 09/23/16 07:00 Ur Squamous Epith Cells < 1 /hpf (0-5) 09/23/16 07:00 Urine Bacteria Occ (<OCC) H 09/22/16 23:51 Urine Opiates Screen Positive (NEGATIVE) 09/24/16 07:35 Urine Methadone Screen Negative (NEGATIVE) 09/24/16 07:35 Ur Barbiturates Screen Negative (NEGATIVE) 09/24/16 07:35 Ur Phencyclidine Scrn Negative (NEGATIVE) 09/24/16 07:35 Ur Amphetamines Screen Negative (NEGATIVE) 09/24/16 07:35 U Benzodiazepines Scrn Negative (NEGATIVE) 09/24/16 07:35 U Oth Cocaine Metabols Negative (NEGATIVE) 09/24/16 07:35 U Cannabinoids Screen Negative (NEGATIVE) 09/24/16 07:35 Alcohol, Quantitative < 10 mg/dl (0-10) 09/22/16 23:51 Hepatitis A IgM Ab Negative (NEGATIVE) 09/23/16 09:51 Hep Bs Antigen Negative (NEGATIVE) 09/23/16 09:51 Hep B Core IgM Ab Negative (NEGATIVE) 09/23/16 09:51 Hepatitis C Antibody Negative (NEGATIVE) 09/23/16 09:51 - Hospital Course Hospital Course: Upon Admission: CC: "abdominal pain and vomiting" HPI: Patient is a 56 year old female with past medical history of hyperlipidemia and asthma who presents to the emergency room complaining of abdominal pain and vomiting. Patient reports epigastric abdominal pain began last night. She notes the pain was exacerbated after eating breakfast in the morning and shortly after she began to experience nausea/emesis and had 4 subsequent episodes. Patient reports vomitus contained food contents and denies hematemesis/coffee ground emesis. She described abdominal pain to be located to epigastric area, constant, and sharp in character. Patient states she has been treated three times in the past for similar symptoms but denies knowledge of previous diagnosis of pancreatitis. Patient admits to drinking half a bottle of whiskey on Fridays/Saturdays for several years. She denies current or previous withdrawal symptoms. Patient denies chest pain, shortness of breath, headache, fever, chills, dysuria, constipation, diarrhea, hematochezia, melanic stools, increased urinary frequency, and lower extremity edema. PMH: see HPI Medications: cholesterol medication? Allergies: NKDA Family History: No known family history Surgeries: Social: 25 pack year history. Drinks half a bottle of whiskey on Fridays or Saturdays for several years. Denies illicit drug use. Throughout hospital course: Listed above. This is a brief summary of the patient's hospital course. Please review EMR for full course. Discharge Exam - Head Exam Head Exam: ATRAUMATIC, NORMOCEPHALIC - Eye Exam Eye Exam: Normal appearance - ENT Exam ENT Exam: Mucous Membranes Moist - Respiratory Exam Respiratory Exam: Clear to PA & Lateral, NORMAL BREATHING PATTERN - Cardiovascular Exam Cardiovascular Exam: REGULAR RHYTHM, RRR, +S1, +S2 - GI/Abdominal Exam GI & Abdominal Exam: Normal Bowel Sounds, Soft. absent: Distended, Tenderness - Extremities Exam Extremities exam: normal inspection, pedal pulses present - Neurological Exam Neurological exam: Alert, Oriented x3 - Skin Skin Exam: Dry, Intact, Normal Color, Warm
[2016-09-28] MEDS ORDERED: Pneumococcal 23-Valent Vaccine IM ONE (09:15)
[2016-09-28] MEDS ORDERED: POLYETHYLENE GLYCOL 3350 17 GM/Dose PACKET PO SCH (10:00)
--- NOTE | 2016-09-29 10:18 | VASCLAB ---
PROCEDURE: Left Lower Extremity Venous Duplex Exam. HISTORY: elevated d-dimer PRIORS: None. TECHNIQUE: Left common femoral, femoral, popliteal and posterior tibial, peroneal and great saphenous veins were evaluated. Flow was assessed with color Doppler, compressibility, assessment of phasic flow and augmentation response. Report prepared by SUKHDEEP Don, RVT FINDINGS: LEFT: 1. Common Femoral Vein: 1.1. Compressibility - Fully compressible: Thrombus - None : Flow - Phasic: Augmentation -Normal: Reflux - None. 2. Femoral Vein: 2.1. Compressibility - Fully compressible: Thrombus - None: Flow - Phasic: Augmentation -Normal: Reflux - None. 3. Popliteal Vein: 3.1. Compressibility - Fully compressible: Thrombus - None: Flow - Phasic: Augmentation -Normal: Reflux - None. 4. Posterior Tibial Vein: 4.1. Compressibility - Fully compressible: Thrombus - None: Flow - Phasic: Augmentation -Normal: Reflux - None. 5. Peroneal Vein: 5.1. Compressibility - Fully compressible: Thrombus - None: Flow - Phasic: Augmentation -Normal: Reflux - Severe. 6. Great Saphenous Vein: 6.1. Compressibility - Fully compressible: Thrombus - None: Flow - Phasic: Augmentation - Normal: Reflux - Severe. OTHER FINDINGS: Severe valvular incompetence of the left peroneal and greater saphenous veins. IMPRESSION: No evidence of deep or superficial vein thrombosis of the left lower extremity with excellent venous flow. Normal venous flow noted in the right common femoral vein.
== END 2016-09-28 10:18 | disposition home or self-care (01) | DRG 204 ==
LOC: C.ER 22:53 → C.3T 09-23 01:50
PROVIDERS: ADMIT Hospitalist; ATTEND Hospitalist
PROC: HZ2ZZZZ Detoxification Services for Substance Abuse Treatment (ICD-10-PCS; principal; 2016-09-23)
DX: K85.90 Acute pancreatitis without necrosis or infection, unspecified (principal); I10 Essential (primary) hypertension; R82.71 Bacteriuria; F10.239 Alcohol dependence with withdrawal, unspecified; E87.6 Hypokalemia; F17.210 Nicotine dependence, cigarettes, uncomplicated; E78.00 Pure hypercholesterolemia, unspecified; E78.5 Hyperlipidemia, unspecified; J45.909 Unspecified asthma, uncomplicated; K59.00 Constipation, unspecified; K64.8 Other hemorrhoids; K57.90 Diverticulosis of intestine, part unspecified, without perforation or abscess without bleeding; K29.70 Gastritis, unspecified, without bleeding; E78.1 Pure hyperglyceridemia; Y90.0 Blood alcohol level of less than 20 mg/100 ml

== ENCOUNTER 2017-04-03 20:55 | Emergency (ER) | payer MEDICAID ==
[2017-04-03 20:56] VITALS: BMI 25.7
[2017-04-03 21:03] VITALS: RESP 20; TEMP 97.9
[2017-04-03] MEDS ORDERED: Bacitracin 500 Units/gm Oint Foilpak UD TOP ONE (21:31)
--- NOTE | 2017-04-03 21:31 | C.PDOC ---
History Of Present Illness John Peace is a 57 year old female who was brought to the ED for evaluation of injuries s/p fall. She was walking down the stairs at home, and skipped a step approximately 3 steps up and fell sustaining lacerations to the chin and inner buccal mucosa. As well, she complains of leg pain below the left patella. Tetanus is not up to date. There was no loss of consciousness. She denies neck pain. Pt was placed in knee immobilizer on arrival. PMD: None provided - HPI Time Seen by Provider: 04/03/17 21:21 Chief Complaint (Nursing): Trauma History Per: Patient, Family History/Exam Limitations: language barrier (translated from wolof by RN and EMT personal) Injury Occurred (Timing): Just Before Arrival Additional History Per: Family Past Medical History Reviewed: Historical Data, Nursing Documentation, Vital Signs Vital Signs: Last Vital Signs Temp 97.9 F 04/03/17 20:59 Pulse 83 04/03/17 23:09 Resp 20 04/03/17 23:09 BP 108/66 04/03/17 23:09 Pulse Ox 100 04/04/17 00:14 - Medical History PMH: Asthma, Hypercholesterolemia Denies: Colonic Polyps, Fractures, Chronic Kidney Disease Surgical History: Denies: Endoscopy - [facility] Procedures DETOXIFICATION SERVICES FOR SUBSTANCE ABUSE TREATMENT (09/23/16) Family History: States: Unknown Family Hx - Social History Hx Alcohol Use: Yes Hx Substance Use: No Review Of Systems Except As Marked, All Systems Reviewed And Found Negative. Musculoskeletal: Positive for: Leg Pain (below left patella). Negative for: Neck Pain Skin: Positive for: Lesions (to chin and buccal mucosa) Physical Exam - Physical Exam Appears: Non-toxic, No Acute Distress Skin: Normal Color, Warm, Dry Head: Normacephalic, Laceration (3 cm laceration to chin, 4 cm laceration to buccal mucosa, deep laceration at vestibule of the mouth from frenulum laterally to both sides) Eye(s): bilateral: Normal Inspection, PERRL, EOMI Nose: Normal Neck: Normal, Normal ROM, No Midline Cervical Tenderness, Supple Extremity: Tenderness (to palpation of left inferior patella with multiple superficial abrasions at the proximal tibia), No Deformity Pulses: Left Dorsalis Pedis: Normal, Right Dorsalis Pedis: Normal Neurological/Psych: Oriented x3, Normal Speech ED Course And Treatment O2 Sat by Pulse Oximetry: 100 (RA) Pulse Ox Interpretation: Normal - Other Rad X-ray left knee X-Ray: Interpreted by Me, Viewed By Me Interpretation: Fracture pelvis X-Ray: Interpreted by Me Interpretation: no acute fx - CT Scan/US CT head Other Rad Studies (CT/US): Read By Radiologist, Radiology Report Reviewed CT/US Interpretation: Name: JOHN PEACE Age: 57Years F Date: 04/03/2017. SSN: [id number] : 1960. Study: CT HEAD WO Requesting Physician: Jeanine Tiwari PA-C. Images: 350. Addl Studies: Provided Clinical History: head injury. CONFIDENTIALITY STATEMENT. This transmission is confidential and is intended to be a privileged communication. It is intended only for the use of the addressee. Access to this. message by anyone else is unauthorized. If you are not the intended recipient, any disclosure, copying, distribution or any action taken, or omitted to. be taken in reliance on it is prohibited and may be unlawful. If you received this communication in error, please notify us by telephone, so that return. of this document to us can be arranged. Page 1 of 2. EXAM: CT Head Without Intravenous Contrast. CLINICAL HISTORY: 57 years old, female; Injury or trauma; Fall; Initial encounter; Bleeding / hemorrhage; Injury details : Patient bleeding from the ears; Additional info: Head injury. TECHNIQUE: Axial computed tomography images of the head/brain without intravenous contrast. All CT scans at. this facility use one or more dose reduction techniques, viz.: automated exposure control; ma/kV. adjustment per patient size (including targeted exams where dose is matched to indication; i.e. head); . or iterative reconstruction technique. Coronal and sagittal reformatted images were created and reviewed. COMPARISON: No relevant prior studies available. FINDINGS: Brain: Mild atrophy. No intracranial hemorrhage. No mass. Dilated perivascular spaces vs chronic. lacunar infarcts about basal ganglia. No edema. Ventricles: No hydrocephalus. Bones/joints: No calvarial fracture. Soft tissues: LEFT parietal soft tissue swelling. Vasculature: Atherosclerotic disease of intracranial arteries. Mastoid air cells: No mastoid effusion. IMPRESSION: 1. No intracranial hemorrhage. [facility], [place]. [facility] Radiology [facility]. Final Radiology Report [id number]. Name: JOHN PEACE Age: 57Years F Date: 04/03/2017. : 1960. Study: CT HEAD WO Requesting Physician: Jeanine Tiwari PA-C. Images: 350. Addl Studies: Provided Clinical History: head injury. CONFIDENTIALITY STATEMENT. This transmission is confidential and is intended to be a privileged communication. It is intended only for the use of the addressee. Access to this. message by anyone else is unauthorized. If you are not the intended recipient, any disclosure, copying, distribution or any action taken, or omitted to. be taken in reliance on it is prohibited and may be unlawful. If you received this communication in error, please notify us by telephone, so that return. of this document to us can be arranged. Page 2 of 2. 2. See facial bone CT report for additional details. 3. Incidental/non-acute findings are described above. Thank you for allowing us to participate in the care of your patient. Dictated and Authenticated by: Trevor Leija MD. 04/03/2017 11:14 PM Eastern Time ([place] & [place]) CT maxillofacial Other Rad Studies (CT/US): Read By Radiologist, Radiology Report Reviewed CT/US Interpretation: [facility], [place]. [facility] Radiology [facility]. Final Radiology Report [id number]. Name: JOHN PEACE Age: 57Years F Date: 04/03/2017. SSN: [id number] : 1960. Study: CT HEAD WO Requesting Physician: Jeanine Tiwari PA-C. Images: 350. Addl Studies: Provided Clinical History: head injury. CONFIDENTIALITY STATEMENT. This transmission is confidential and is intended to be a privileged communication. It is intended only for the use of the addressee. Access to this. message by anyone else is unauthorized. If you are not the intended recipient, any disclosure, copying, distribution or any action taken, or omitted to. be taken in reliance on it is prohibited and may be unlawful. If you received this communication in error, please notify us by telephone, so that return. of this document to us can be arranged. Page 1 of 2. EXAM: CT Head Without Intravenous Contrast. CLINICAL HISTORY: 57 years old, female; Injury or trauma; Fall; Initial encounter; Bleeding / hemorrhage; Injury details : Patient bleeding from the ears; Additional info: Head injury. TECHNIQUE: Axial computed tomography images of the head/brain without intravenous contrast. All CT scans at. this facility use one or more dose reduction techniques, viz.: automated exposure control; ma/kV. adjustment per patient size (including targeted exams where dose is matched to indication; i.e. head); . or iterative reconstruction technique. Coronal and sagittal reformatted images were created and reviewed. COMPARISON: No relevant prior studies available. FINDINGS: Brain: Mild atrophy. No intracranial hemorrhage. No mass. Dilated perivascular spaces vs chronic. lacunar infarcts about basal ganglia. No edema. Ventricles: No hydrocephalus. Bones/joints: No calvarial fracture. Soft tissues: LEFT parietal soft tissue swelling. Vasculature: Atherosclerotic disease of intracranial arteries. Mastoid air cells: No mastoid effusion. IMPRESSION: 1. No intracranial hemorrhage. [facility], [place]. [facility] Radiology [facility]. Final Radiology Report [id number]. Name: JOHN PEACE Age: 57Years F Date: 04/03/2017. : 1960. Study: CT HEAD WO Requesting Physician: Jeanine Tiwari PA-C. Images: 350. Addl Studies: Provided Clinical History: head injury. CONFIDENTIALITY STATEMENT. This transmission is confidential and is intended to be a privileged communication. It is intended only for the use of the addressee. Access to this. message by anyone else is unauthorized. If you are not the intended recipient, any disclosure, copying, distribution or any action taken, or omitted to. be taken in reliance on it is prohibited and may be unlawful. If you received this communication in error, please notify us by telephone, so that return. of this document to us can be arranged. Page 2 of 2. 2. See facial bone CT report for additional details. 3. Incidental/non-acute findings are described above. Thank you for allowing us to participate in the care of your patient. Dictated and Authenticated by: Trevor Leija MD. 04/03/2017 11:14 PM Eastern Time ([place] & [place]) Reassessment Condition: Improved Laceration - Laceration Repair Laceration to chin Wound Length (In cm): 3 Description Of Wound: Linear Anesthesia: Lidocaine 2%, With Epi Wound Examination: Irrigated With Saline (High pressure irrigation), No FB With Wound Exploration, No Tendon Injury With Wound Exploration Wound Closure: Suture (Subcutanous 5:0 vicryl x 2, 6:0 Nylon cutaneous running) Suture Technique And Material Used: Running (cutaneous nylon 6.0), Interrupted ( vicryl 5.0 x2) Wound Complexity: Intermediate Laceration to buccal mucosa Wound Length (In cm): 4 Description Of Wound: Linear Anesthesia: Lidocaine 2%, With Epi Wound Examination: Irrigated With Saline (High pressure irrigation), No FB With Wound Exploration, No Tendon Injury With Wound Exploration Wound Closure: Suture Suture Technique And Material Used: Vicryl ( 4:0 rapid vicryl, x5) Wound Complexity: Simple Medical Decision Making Medical Decision Making: Time: 21:42 Initial Impression: 57 year old female with lacerations and knee pain s/p fall Initial Plan: * Will repair lacerations * Tylenol 650 mg PO * Tetanus vaccine * X-Ray Left Knee Reviewed X-Ray, positive for fracture. Ordered 2 mg Morphine IM. 9:52 Dr. Schwartz paged. 10:03 Dr. Schwartz called back, he reviewed Xrays and recommended no weight bearing, crutches for walking and knee immobilizer. Pt to f/u in Ortho clinic in [facility], [place]. Deep laceration of the vestibule of the mouth repaired by surgical instrument repair specialist Dr. Ybarra. Disposition Counseled Patient/Family Regarding: Studies Performed, Diagnosis, Need For Followup, Rx Given - Disposition Referrals: Darin Schwartz III, MD [Staff Provider] - Romi Adan DMD [Staff Provider] - [facility] [Outside] [facility] [Outside] Disposition Time: 00:14 Condition: STABLE Additional Instructions: FOLLOW UP WITH ORTHOPEDIST IN [facility] [address] SOON POSSIBLE. FOLLOW UP WITH DR. ADAN ON WEDNESDAY FOR RE-EVALUATION. SUTURES OF CHIN TO BE REMOVED IN 5-6 DAYS (PMD OR CLINIC) NO WEIGHT BEARING, CRUTCHES FOR WALKING, KEEP KNEE IMMOBILIZER ON AT ALL TIMES. IF ANY NEW CONCERNING SYMPTOMS DEVELOP RETURN TO ED. SEGUIR CON ORTOPEDISTA EN LA CLNICA DE [facility] PRONTO NAM SEA POSIBLE. SEGUIMIENTO CON EL DR. ADAN EL XIN PARA RE-EVALUACIN. SUTURAS DE CHIN QUE SE RETIRARN EN 5-6 SEGURA (PMD OR CLINIC). SIN RODAMIENTO DE PESO, MACHAS PARA CAMINAR, MANTENGA EL INMOVILIZADOR DE RODILLAS EN TODO MOMENTO. SI ALGUNA NUEVA RELACIONADA CON LOS SNTOMAS SE DESARROLLA, VUELVA A ED. Prescriptions: Bacitracin 1 apful EXT TID #30 g Clindamycin [Cleocin] 1 cap PO TID #15 cap oxyCODONE/Acetaminophen [Percocet 5/325 mg Tab] 1 tab PO QID PRN #12 tab PRN Reason: Pain, Severe (8-10) Instructions: Patellar Fracture (ED), Facial Laceration (ED) Forms: [facility] (Spanish) Print Language: [place] - Clinical Impression Clinical Impression: Knee fracture, left, Laceration of mouth, complicated, Laceration of chin - PA / MANGA ARTIST / Resident Statement / has reviewed & agrees with the documentation as recorded. - Scribe Statement The provider has reviewed the documentation as recorded by the Hamida Chowdhury All medical record entries made by the Scribe were at my direction and personally dictated by me. I have reviewed the chart and agree that the record accurately reflects my personal performance of the history, physical exam, medical decision making, and the department course for this patient. I have also personally directed, reviewed, and agree with the discharge instructions and disposition. Physician Patient Turnover Patient Signed Over To: Brennan Chinchilla DO Handoff Comments: PENDING REPAIR OF VESTIBULE OF MOUTH BY LEGISLATIVE ANALYST.
[2017-04-03] MEDS ORDERED: Lidocaine 2% w Epi 1:100,000 Inj IJ STA (21:39)
[2017-04-03] MEDS ORDERED: Lidocaine 2% w Epi 1:100,000 Inj IJ ONE (21:42)
[2017-04-03] MEDS ORDERED: Bacitracin 500 Units/gm Oint Foilpak UD ONE (21:52)
[2017-04-03 23:09] VITALS: BP 108/66; PULSE 83
--- NOTE | 2017-04-03 23:14 | CT ---
EXAM: CT Head Without Intravenous Contrast CLINICAL HISTORY: 57 years old, female; Injury or trauma; Fall; Initial encounter; Bleeding / hemorrhage; Injury details: Patient bleeding from the ears; Additional info: Head injury TECHNIQUE: Axial computed tomography images of the head/brain without intravenous contrast. All CT scans at this facility use one or more dose reduction techniques, viz.: automated exposure control; ma/kV adjustment per patient size (including targeted exams where dose is matched to indication; i.e. head); or iterative reconstruction technique. Coronal and sagittal reformatted images were created and reviewed. COMPARISON: No relevant prior studies available. FINDINGS: Brain: Mild atrophy. No intracranial hemorrhage. No mass. Dilated perivascular spaces vs chronic lacunar infarcts about basal ganglia. No edema. Ventricles: No hydrocephalus. Bones/joints: No calvarial fracture. Soft tissues: LEFT parietal soft tissue swelling. Vasculature: Atherosclerotic disease of intracranial arteries. Mastoid air cells: No mastoid effusion. IMPRESSION: 1. No intracranial hemorrhage. 2. See facial bone CT report for additional details. 3. Incidental/non-acute findings are described above.
--- NOTE | 2017-04-03 23:19 | CT ---
EXAM: CT Maxillofacial Without Intravenous Contrast CLINICAL HISTORY: 57 years old, female; Injury or trauma; Fall; Initial encounter; Laceration; Jaw; Bilateral; Without residual foreign body; Additional info: Pain p fall TECHNIQUE: Axial computed tomography images of the face without intravenous contrast. All CT scans at this facility use one or more dose reduction techniques, viz.: automated exposure control; ma/kV adjustment per patient size (including targeted exams where dose is matched to indication; i.e. head); or iterative reconstruction technique. Coronal and sagittal reformatted images were created and reviewed. COMPARISON: No relevant prior studies available. FINDINGS: Bones/joints: Chronic fracture deformity of LEFT zygomatic arch. Mild deformity of distal nasal bones, likely chronic. Degenerative changes of cervical spine. Incomplete closure of C1 ring, normal variant. No acute fracture. Soft tissues: Soft tissue swelling/air about mandible. Punctate foreign body or calcification along soft tissue swelling. Orbits: Unremarkable as visualized. Sinuses: Scattered mild mucosal thickening. LEFT maxillary retention cyst. No air-fluid levels. Dental: Dental freedom. IMPRESSION: 1. No fracture. 2. Incidental/non-acute findings are described above.
[2017-04-03] MEDS ORDERED: Clindamycin 300 MG in Sodium Chloride 0.9% 50 ML IVPB STA (23:27)
[2017-04-03 23:30] VITALS: O2SAT 100
--- NOTE | 2017-04-04 01:00 | PCM.PROC ---
Procedures Attestation:: I certify that I have explained the specified Operation(s) or Procedure(s), risks, benefits and reasonable alternatives to the Patient and/or other person responsible. The opportunity was given to ask questions and all questions answered - Laceration lidocaine 2% [id number] irregular irrigated extensively lip 5-0 chromic gut nerve block simple, interrupted simple, interrupted simple, interrupted Site: lip (lower lip, wet vermilion; ) Description: linear, irregular, other (wet vermilion, lower lip. at the lower frenulum laterally approx 3cm. ) Depth: [id number] Anesthesia used: lidocaine 2%, with EPI Anesthesia technique: nerve block Pre-repair: irrigated extensively Size: 5-0, other (5-0 plain gut used to approximate inner wet vermilion; 5-0 ethilon used to approximate outer skin) Number of sutures: 5 (at the wet vermilion, gum border) Technique: simple, interrupted Subcutaneous layer closed with: chromic gut Size: 5-0 Number of sutures: 3 (outter skin; simple inturrupted.) Technique: simple, interrupted Muscle layer closed with: other (ethilon)
[2017-04-04] MEDS ORDERED: Bacitracin 500 Units/gm Oint Foilpak UD ONE (02:00)
--- NOTE | 2017-04-04 11:30 | RAD ---
PROCEDURE: Left Knee Radiographs. HISTORY: Pain. COMPARISON: None. FINDINGS: BONES: A comminuted nondisplaced fracture of the proximal tibia is appreciated involving the medial margins of the lateral tibial plateau, the epiphysis and the proximal diametaphysis. The fracture appears articular at the lateral femorotibial compartment. CT may be useful for follow-up. JOINTS: No subluxation or dislocation. JOINT EFFUSION: A fat fluid level is seen in the suprapatellar bursa in the lateral view. OTHER FINDINGS: None. IMPRESSION: Comminuted nondisplaced fracture which is articular and involves the proximal tibia and the lateral tibial plateau in particular. CT may be useful for further characterization. No dislocation.
--- NOTE | 2017-04-04 11:39 | RAD ---
PROCEDURE: Radiographs of the pelvis. HISTORY: pain p fall COMPARISON: None. FINDINGS: BONES: No acute fracture or destructive bony lesion identified throughout the pelvic ring although the sacrum is obscured by overlying bowel of the right side. . JOINTS: Sacroiliac Joints: Moderate degenerative cortical sclerosis is identified. Pubic Symphysis: [id number]-oj-xlwrlnca cortical sclerosis appreciate weight-bearing portions of the bilateral hip joints with pubic symphysis intact. OTHER FINDINGS: Phlebolith like calcifications are identified in the inferior pelvic soft tissues, left greater than right. IMPRESSION: No acute fracture throughout the pelvic ring. No gross hip dislocation bilaterally. Degenerative changes seen the bilateral sacroiliac and hip joints.
== END 2017-04-04 02:33 | disposition home or self-care (01) ==
LOC: C.ER 20:55
DX: S01.512A Laceration without foreign body of oral cavity, initial encounter (principal); S01.81XA Laceration without foreign body of other part of head, initial encounter; S82.142A Displaced bicondylar fracture of left tibia, initial encounter for closed fracture; W10.9XXA Fall (on) (from) unspecified stairs and steps, initial encounter; Y92.009 Unspecified place in unspecified non-institutional (private) residence as the place of occurrence of the external cause; Z23 Encounter for immunization; E78.00 Pure hypercholesterolemia, unspecified
CPT/HCPCS: 12014; 12052; 70450; 70486; 72170; 73560; 90471; 90715; 96365; 96372; 99285; J2270

== ENCOUNTER 2017-04-06 13:31 | Inpatient (IN) | payer MEDICAID ==
[2017-04-06 13:31] VITALS: BMI 25.7
[2017-04-06] MEDS ORDERED: HYDROmorphone 1 mg/ml ISec IM STA (15:15)
[2017-04-06] MEDS ORDERED: HYDROmorphone 1 mg/ml ISec ONE (15:35)
--- NOTE | 2017-04-06 16:57 | C.PDOC ---
History Of Present Illness 57yo female, presents to ED for evaluation of persistent left knee pain. Patient states she was diagnosed with a left knee fracture on 04/03, was seen and treated at this facility. Patient states she was informed to follow up with an Orthopedist in the clinic but due to pain, she has not been able to get up, eat or take care of her self. She states she has been taking 1 tab of Percocet as needed with no relief, states she took her last dose at 7AM today. She denies any paresthesias, skin discoloration, cold sensation to her L leg, CP, SOB, and denies any other medical complaints. Time Seen by Provider: 04/06/17 14:39 Chief Complaint (Nursing): Lower Extremity Problem/Injury History Per: Patient History/Exam Limitations: no limitations Onset/Duration Of Symptoms: Days (3) Current Symptoms Are (Timing): Still Present Severity: Moderate Recent travel outside of the [place] States: No Additional History Per: Patient Past Medical History Reviewed: Historical Data, Nursing Documentation, Vital Signs Vital Signs: Last Vital Signs Temp 98.2 F 04/06/17 18:47 Pulse 72 04/06/17 21:32 Resp 18 04/06/17 21:32 BP 123/68 04/06/17 21:32 Pulse Ox 98 04/06/17 21:36 - Medical History PMH: Asthma, Hypercholesterolemia Denies: Colonic Polyps, Fractures, Chronic Kidney Disease Surgical History: Denies: Endoscopy - [facility] Procedures DETOXIFICATION SERVICES FOR SUBSTANCE ABUSE TREATMENT (09/23/16) Family History: States: No Known Family Hx, Unknown Family Hx - Social History Hx Alcohol Use: Yes Hx Substance Use: No Review Of Systems Constitutional: Negative for: Fever, Chills, Weakness Cardiovascular: Negative for: Chest Pain, Palpitations, Edema Respiratory: Negative for: Cough, Shortness of Breath, Wheezing Gastrointestinal: Negative for: Nausea, Vomiting, Abdominal Pain Musculoskeletal: Positive for: Leg Pain (left knee pain). Negative for: Neck Pain, Shoulder Pain, Back Pain Skin: Negative for: Rash, Lesions, Jaundice Neurological: Negative for: Weakness, Numbness Physical Exam - Physical Exam Appears: Well, Non-toxic, Other (moderate painful distress) Skin: Normal Color, Warm, Dry, No Pale, No Rash, No Cyanotic, No Ecchymosis Neck: Normal, Normal ROM, No Midline Cervical Tenderness, No Paracervical Tenderness Cardiovascular: Rhythm Regular Respiratory: Normal Breath Sounds, No Decreased Breath Sounds, No Rales, No Rhonchi, No Wheezing Extremity: Tenderness (tenderness to left knee), No Calf Tenderness, Capillary Refill (< 2 seconds), Swelling (swelling to left knee), Other (normal skin of left knee, muscles soft and not tense. ) Pulses: Left Dorsalis Pedis: Normal, Right Dorsalis Pedis: Normal Neurological/Psych: Oriented x3, Normal Speech, Normal Cognition, Normal Cranial Nerves, Normal Sensation ED Course And Treatment - Laboratory Results Result Diagrams: 04/06/17 16:52 04/06/17 16:52 ECG: Interpreted By Me ECG Rhythm: Sinus Rhythm (NSR at 84 bpm) ECG Interpretation: Normal O2 Sat by Pulse Oximetry: 98 (RA) Pulse Ox Interpretation: Normal - Radiology CXR: Interpreted by Me CXR Interpretation: Yes: No Acute Disease Progress Note: Patient given dilaudid, zofran. Patient evaluated by Dr. Geoffrey ED MD. solar installation manager contacted and decision made to admit patient under Dr. Lamas for pain management, physical therapy consult tomorrow with plan to go to rehab if the patient is not a surgical candidate. Consult placed to ortho Dr. Schwartz, notified of plan for inpt admission, he agrees to consult. Patient notified of plan for further inpatient care, which she agrees to. On re- evaluation, patient reports mild improvement of pain. Knee immobilizer to the L knee readjusted by PA. Neurovascular still intact. Patient still denies any numbness. No pallor or skin changes noted. Disposition - Disposition Disposition: HOSPITALIZED Disposition Time: 16:30 Condition: STABLE - Clinical Impression Clinical Impression: Tibial plateau fracture, left, Intractable pain - PA / QC SCIENTIST / Resident Statement MD/DO has reviewed & agrees with the documentation as recorded. - Scribe Statement The provider has reviewed the documentation as recorded by the Hamida Laguerre Provider Attestation: All medical record entries made by the Hamida were at my direction and personally dictated by me. I have reviewed the chart and agree that the record accurately reflects my personal performance of the history, physical exam, medical decision making, and the department course for this patient. I have also personally directed, reviewed, and agree with the discharge instructions and disposition.
[2017-04-06 16:58] LABS: BASO # 0.1 K/uL (0.0-0.2); BASO % 0.8 % (0.0-2.0); EOS # 0.1 K/uL (0.0-0.7); EOS % 0.4 % (0.0-4.0); HEMATOCRIT 41.5 % (34.0-47.0); LYMPH % 21.4 % (20.0-40.0); MEAN CELL VOLUME 85.8 fL (81.0-99.0); MEAN CORPUSCULAR HEMOGLOBIN 28.2 pg (27.0-31.0); MEAN CORPUSCULAR HGB CONC 32.9 g/dL (33.0-37.0); MONO # 0.8 K/uL (0.0-0.8); MONO % 5.4 % (0.0-10.0); NRBC % 0.1 % (0.0-2.0); RED CELL DISTRIBUTION WIDTH 13.3 % (11.5-14.5)
[2017-04-06 17:07] LABS: INR 1.1
[2017-04-06 17:08] LABS: ALB/GLOB RATIO 1.2 (1.0-2.1); ALKALINE PHOSPHATASE 77 U/L (38-126); ALT/SGPT 30 U/L (9-52); AST/SGOT 22 U/L (14-36); BILIRUBIN,TOTAL 0.8 mg/dL (0.2-1.3); BLOOD UREA NITROGEN 12 mg/dL (7-17); CALCIUM 8.1 mg/dl (8.6-10.4); CARBON DIOXIDE 31 mmol/L (22-30); CHLORIDE 100 mmol/L (98-107); GFR AFRICAN-AMERICAN > 60; GLUCOSE,RANDOM 109 mg/dL (65-105); POTASSIUM 3.7 mmol/L (3.6-5.2); SODIUM 139 mmol/L (132-148); TOTAL PROTEIN 7.4 g/dL (6.3-8.3)
[2017-04-06 22:37] LABS: IRON 27 ug/dL (37-170)
[2017-04-06 23:45] LABS: FOLATE 10.8 ng/mL
[2017-04-07] MEDS: HYDROmorphone 0.5 mg/0.5 ml ISec IVP PRN ×3 (06:23→20:52)
[2017-04-07 06:54] LABS: HEMATOCRIT 39.8 % (34.0-47.0); MEAN CELL VOLUME 86.3 fL (81.0-99.0); MEAN CORPUSCULAR HEMOGLOBIN 28.6 pg (27.0-31.0); MEAN CORPUSCULAR HGB CONC 33.1 g/dL (33.0-37.0); RED CELL DISTRIBUTION WIDTH 13.4 % (11.5-14.5); WHITE BLOOD COUNT 11.2 K/uL (4.8-10.8)
[2017-04-07 07:05] LABS: BLOOD UREA NITROGEN 14 mg/dL (7-17); CALCIUM 8.5 mg/dl (8.6-10.4); CARBON DIOXIDE 30 mmol/L (22-30); CHLORIDE 102 mmol/L (98-107); GFR AFRICAN-AMERICAN > 60; GLUCOSE,RANDOM 122 mg/dL (65-105); SODIUM 141 mmol/L (132-148)
[2017-04-07 07:33] LABS: THYROID STIMULATING HORMONE 1.44 mIU/L (0.46-4.68)
--- NOTE | 2017-04-07 07:42 | RAD ---
PROCEDURE: CHEST RADIOGRAPH, 1 VIEW HISTORY: possible OR COMPARISON: Chest radiographs 09/25/2016. FINDINGS: LUNGS: Improved inspiratory volume identified. Prominent right epicardial fat is reiterated but better expose given improved inspiration. No acute infiltrate identified bilaterally. Resolution of left basilar linear atelectasis. PLEURA: No pneumothorax or pleural fluid seen. CARDIOVASCULAR: Normal. OSSEOUS STRUCTURES: No significant abnormalities. VISUALIZED UPPER ABDOMEN: Normal. OTHER FINDINGS: None. IMPRESSION: Resolution of left basilar linear atelectasis. No interval acute cardiopulmonary disease appreciated.
--- NOTE | 2017-04-07 09:16 | HP ---
CHIEF COMPLAINT: Lower extremity pain. HISTORY OF PRESENT ILLNESS: Ms. Ada Bennett is a 57-year-old female came to the emergency room for evaluation for persistent left knee pain. The patient stated that she was diagnosed with a left knee fracture on 04/03/2017, was seen and treated at this facility. The patient stated that she was informed to follow up with Orthopedic in the clinic, but due to pain, she has not been able to get up, eat, or take care of herself. She states that she has been taking one tablet of Percocet as needed with that she took her last dose this 7:00 a.m. She denies any paresthesia, denies any hematuria, hematochezia, fever, or chills. She has an injury on the chin also and has couple of stitches put on 04/03/2017. PAST MEDICAL HISTORY: Asthma, hypercholesterolemia. PAST SURGICAL HISTORY: section. HABITS: Alcohol, yes; substance abuse, no; smoking, questionable. REVIEW OF SYSTEMS: The patient was seen and examined at the bedside, on fast track #3, looks nontoxic, looks like in moderate pain, distress. Tenderness on the left knee. No calf tenderness. Swelling of the left knee. Left dorsalis pedis normal. Right dorsalis pedis normal. Oriented x3. No nausea, vomiting, or diarrhea. Having pain on the chin also, lower lip is swollen. SOCIAL HISTORY: Lives alone, cannot take care of herself. PHYSICAL EXAMINATION: VITAL SIGNS: Temperature 98.8, pulse 76, respiratory rate 16, blood pressure 126/80. HEENT: Head, normocephalic and atraumatic. Eyes, PERRLA. Extraocular muscles are intact. Conjunctivae clear. Nose patent. Mucous membranes moist. Lower lip is swollen. Chin has 2 series of stitches, looks healthy. NECK: Supple. No carotid bruit or thyromegaly. CHEST: Bilaterally symmetrical. HEART: S1 and S2 positive. LUNGS: Clear to auscultation. ABDOMEN: Soft. Bowel sounds present. No organomegaly. EXTREMITIES: Upper extremities, no edema, no cyanosis. Left knee is in the brace and range of motion is 0. NEUROLOGIC: The patient is awake, alert, oriented x3. LABORATORY DATA: White blood cells 14.0, hemoglobin 13.7, hematocrit 41.5, platelets 246. Sodium 139, potassium 3.7, BUN 12, creatinine 0.6, glucose 109. ASSESSMENT AND PLAN: Ms. Ada Bennett is a 57 years old female with leukocytosis, hyperglycemia, has history of asthma, hypercholesterolemia, history of fall with fracture in the left knee, facial injury, has stitches on the chin area; got Linwood Lozada. The patient needs physical therapy. Gastrointestinal and deep venous thrombosis prophylaxis. Repeat labs. We will follow up. Brenna Lamas MD MTDD
[2017-04-07] MEDS ORDERED: Dextrose 5%/0.45% NS 1,000 ML IV SCH (09:30)
[2017-04-07] MEDS ORDERED: Enoxaparin 40 mg Syringe SC SCH (10:00)
--- NOTE | 2017-04-07 11:00 | CT ---
PROCEDURE: CT left lower extremity HISTORY: fracture COMPARISON: Not available TECHNIQUE: 2.5 mm contiguous axial sections were acquired through the left knee. Sagittal and coronal images were reformatted from the axial scan. There is no prior examination available for comparison. FINDINGS: There is a comminuted minimally displaced proximal tibial fracture extending from the lateral tibial plateau obliquely towards the medial tibial diaphysis and obliquely towards the lateral tibial diaphysis. There is no other fracture identified. There is a curvilinear ossific density adjacent to the medial femoral epicondyles which may be the result of an old avulsion injury as there is no donor site evident on the current examination. There is a lipohemarthrosis in the suprapatellar bursa. IMPRESSION: Comminuted intra-articular proximal tibial fracture. Possible old medial epicondylar avulsion injury. Lipohemarthrosis noted.
--- NOTE | 2017-04-07 11:54 | CP.PCM.CON ---
History of Present Illness - History of Present Illness History of Present Illness: INFECTIOUS DISEASE CONSULT; HPI; 57-year-old female who presented to [facility] on 04/06/17 for evaluation of persistent left knee pain. Patient states she was seen and diagnosed with left knee fracture on 04/03/17 and splinted in the ER and instructed to follow-up with Dr. HUANG in the clinic.Patient also had laceration of her chin and mouth at the time of fall and had stitches placed. She was taking Percocets at home but with no relief. So she came to the ER complaining of severe pain. Patient states she lives alone and was unable to take care of herself. Patient presently denies any paresthesias or skin discoloration to her left leg. She denies chest pain, shortness of breath or any other medical issues.PATIENT WAS FOUND TO HAVE A CUMMUNITIVE FRACTURE NONDISPLACED WHICH INVOLVES PROXIMAL TIBIA AND LATERAL TIBIAL PLATEAU. X-RAY OF THE LEFT KNEE ALSO SHOWS JOINT EFFUSION / HEMARTHROSIS SUPRAPATELLAR BURSA WITH CULMINUTIVE MINIMALLY DISPLACED PROXIMAL TIBIAL FRACTURE Infectious disease consultation requested by dr Lamas for INCREASED LEUKOCYTOSIS AND POSSIBLE SEPSIS. PATIENT PRESENTLY DENIES ANY DYSURIA OR HEMATURIA.NO HISTORY OF HESITANCY Patient was started on IV ROCEPHIN 1 g once a day daily by the private M.D. PATIENT HAD A LARGE BOWEL MOVEMENT TODAY. She denies any diarrhea or obstipation. PMH: Asthma, Hypercholesterolemia Denies: Colonic Polyps, Fractures, Chronic Kidney Disease Surgical History: Denies: Endoscopy - [facility] DETOXIFICATION SERVICES FOR SUBSTANCE ABUSE TREATMENT (09/23/16) Family History: States: No Known Family Hx, Unknown Family Hx - Social History Hx Alcohol Use: Yes Hx Substance Use: No ALLERGIES; NKA. Review of Systems - Constitutional Constitutional: absent: Chills, Fever - EENT Eyes: absent: Change in Vision, Other Visual Disturbances Nose/Mouth/Throat: absent: Sore Throat - Cardiovascular Cardiovascular: absent: Chest Pain, Dyspnea, Palpitations - Respiratory Respiratory: absent: Hemoptysis - Gastrointestinal Gastrointestinal: absent: Abdominal Pain, Diarrhea, Nausea, Vomiting - Genitourinary Genitourinary: absent: Difficulty Urinating, Dysuria, Freq UTI - Musculoskeletal Musculoskeletal: As Per HPI, Radiating Pain into Limb (LEFT LEG.). absent: Numbness, Tingling - Neurological Neurological: absent: Headaches, Paresthesias, Tingling - Hematologic/Lymphatic Hematologic: As Per HPI. absent: Easy Bruising Past Patient History - Infectious Disease Hx of Infectious Diseases: None - Past Medical History & Family History Past Medical History?: Yes - Past Social History Smoking Status: Heavy Smoker > 10 Cigarettes Daily - CARDIAC Hx Cardiac Disorders: Yes Hx Hypercholesterolemia: Yes - PULMONARY Hx Respiratory Disorders: Yes Hx Asthma: Yes - NEUROLOGICAL Hx Neurological Disorder: No - HEENT Hx HEENT Problems: No - RENAL Hx Chronic Kidney Disease: No - ENDOCRINE/METABOLIC Hx Endocrine Disorders: No - HEMATOLOGICAL/ONCOLOGICAL Hx Blood Disorders: No - INTEGUMENTARY Hx Dermatological Problems: No - MUSCULOSKELETAL/RHEUMATOLOGICAL Hx Falls: Yes - GASTROINTESTINAL Hx Gastrointestinal Disorders: No - GENITOURINARY/GYNECOLOGICAL Hx Genitourinary Disorders: No - PSYCHIATRIC Hx Substance Use: No - SURGICAL HISTORY Hx Surgeries: Yes Hx Arthroscopy: Yes (LEFT SHOULDER AND LEFT ELBOW; FALL 2009) Hx Section: Yes (X1) - ANESTHESIA Hx Anesthesia: Yes Hx Anesthesia Reactions: No Hx Malignant Hyperthermia: No Has any member of the family had a problem w/ anesthesia?: No Meds Allergies/Adverse Reactions: Allergies Allergy/AdvReac Type Severity Reaction Status Date / Time No Known Allergies Allergy Verified 04/06/17 14:35 - Medications Medications: Current Medications Docusate Sodium (Colace) 100 mg PO BID [facility] Last Admin: 04/07/17 09:55 Dose: 100 mg Enoxaparin Sodium (Lovenox) 40 mg SC DAILY [facility] Last Admin: 04/07/17 09:55 Dose: 40 mg Hydromorphone HCl (Dilaudid) 0.5 mg IVP Q4H PRN PRN Reason: Pain, Mild (1-3) Last Admin: 04/07/17 11:48 Dose: 0.5 mg Ceftriaxone Sodium 1 gm/ (Sodium Chloride) 100 mls @ 100 mls/hr IVPB DAILY [facility] Last Admin: 04/07/17 10:03 Dose: 100 mls/hr Dextrose/Sodium Chloride (Dextrose 5%/0.45% Ns 1000 Ml) 1,000 mls @ 80 mls/hr IV .[id number] [facility] Last Admin: 04/07/17 09:56 Dose: 80 mls/hr Magnesium Hydroxide (Milk Of Magnesia) 30 ml PO HS [facility] Ondansetron HCl (Zofran Inj) 4 mg IVP Q6 PRN PRN Reason: Nausea/Vomiting Pantoprazole Sodium (Protonix Inj) 40 mg IVP DAILY [facility] Last Admin: 04/07/17 09:55 Dose: 40 mg Physical Exam - Constitutional Appears: No Acute Distress - Head Exam Head Exam: NORMAL INSPECTION - Eye Exam Eye Exam: EOMI, PERRL - ENT Exam ENT Exam: Normal Oropharynx - Neck Exam Neck exam: Positive for: Normal Inspection - Respiratory Exam Respiratory Exam: Clear to Auscultation Bilateral - Cardiovascular Exam Cardiovascular Exam: REGULAR RHYTHM, +S1, +S2 - GI/Abdominal Exam GI & Abdominal Exam: Normal Bowel Sounds, Soft - Extremities Exam Extremities exam: Positive for: pedal pulses present (LEFT LEG IN SOFT CAST.). Negative for: calf tenderness, pedal edema - Expanded Lower Extremities Exam Left Hip exam: abrasion ( left leg in soft splint. Extremity warm to touch. No foot drop. No vascular compromise noted.) - Neurological Exam Neurological exam: Alert, CN II-XII Intact, Oriented x3 - Psychiatric Exam Psychiatric exam: Normal Mood - Skin Skin Exam: Normal Color, Warm Results - Vital Signs Recent Vital Signs: Last Vital Signs Temp 98.3 F 04/07/17 07:35 Pulse 80 04/07/17 07:35 Resp 20 04/07/17 07:35 BP 117/75 04/07/17 07:35 Pulse Ox 97 04/07/17 07:35 - Labs Result Diagrams: 04/07/17 06:40 04/07/17 06:40 Labs: Laboratory Results - last 24 hr 04/06/17 04/06/17 04/06/17 16:52 16:52 16:52 WBC 14.0 H RBC 4.84 Hgb 13.7 Hct 41.5 MCV 85.8 MCH 28.2 MCHC 32.9 L RDW 13.3 Plt Count 246 MPV 9.0 Neut % (Auto) 72.0 Lymph % (Auto) 21.4 [place] % (Auto) 5.4 Eos % (Auto) 0.4 Baso % (Auto) 0.8 Neut # 10.1 H Lymph # 3.0 [place] # 0.8 Eos # 0.1 Baso # 0.1 PT 12.6 H INR 1.1 APTT 28 Sodium 139 Potassium 3.7 Chloride 100 Carbon Dioxide 31 H Anion Gap 12 BUN 12 Creatinine 0.6 L Est GFR ( Amer) > 60 Est GFR (Non-Af Amer) > 60 Random Glucose 109 H Hemoglobin A1c Calcium 8.1 L Iron TIBC % Saturation Total Bilirubin 0.8 AST 22 ALT 30 Alkaline Phosphatase 77 Total Protein 7.4 Albumin 4.1 Globulin 3.4 Albumin/Globulin Ratio 1.2 Triglycerides Cholesterol LDL Cholesterol Direct HDL Cholesterol Vitamin B12 Folate [facility] 3rd Generation 04/06/17 04/06/17 04/06/17 22:18 22:18 22:18 WBC RBC Hgb Hct MCV MCH MCHC RDW Plt Count MPV Neut % (Auto) Lymph % (Auto) [place] % (Auto) Eos % (Auto) Baso % (Auto) Neut # Lymph # [place] # Eos # Baso # PT INR APTT Sodium Potassium Chloride Carbon Dioxide Anion Gap BUN Creatinine Est GFR ( Amer) Est GFR (Non-Af Amer) Random Glucose Hemoglobin A1c 6.3 Calcium Iron 27 L TIBC 269 % Saturation 10 L Total Bilirubin AST ALT Alkaline Phosphatase Total Protein Albumin Globulin Albumin/Globulin Ratio Triglycerides 265 H D Cholesterol 162 LDL Cholesterol Direct 99 HDL Cholesterol 26 L Vitamin B12 288 Folate 10.8 TSH 3rd Generation 04/07/17 04/07/17 06:40 06:40 WBC 11.2 H RBC 4.62 Hgb 13.2 Hct 39.8 MCV 86.3 MCH 28.6 MCHC 33.1 RDW 13.4 Plt Count 270 MPV 9.0 Neut % (Auto) Lymph % (Auto) [place] % (Auto) Eos % (Auto) Baso % (Auto) Neut # Lymph # [place] # Eos # Baso # PT INR APTT Sodium 141 Potassium 4.0 Chloride 102 Carbon Dioxide 30 Anion Gap 13 BUN 14 Creatinine 0.7 Est GFR ( Amer) > 60 Est GFR (Non-Af Amer) > 60 Random Glucose 122 H Hemoglobin A1c Calcium 8.5 L Iron TIBC % Saturation Total Bilirubin AST ALT Alkaline Phosphatase Total Protein Albumin Globulin Albumin/Globulin Ratio Triglycerides Cholesterol LDL Cholesterol Direct HDL Cholesterol Vitamin B12 Folate [facility] 3rd Generation 1.44 - Imaging and Cardiology Chest x-ray Status: Report reviewed by me (left basilar atelectasis, no active disease.) Assessment & Plan (1) Leukocytosis Assessment and Plan: pancultures .Patient's mouth stitches with some purulence noted at the site of the stitches lower lip. Continue IV Rocephin 1 g once a day daily 04/06/17. Follow cultures to adjust antibiotics. Status: Acute (2) Laceration of mouth, complicated Assessment and Plan: as above. Status: Acute (3) Closed fracture of left tibial plateau Status: Acute (4) Intractable pain Status: Acute (5) Knee fracture, left Assessment and Plan: patient has left knee joint effusion with hemarthrosis suprapatellar bursa Closed fracture. Doubt any superinfection at present. Monitor closely left knee joint effusion and hemarthrosis. If persists may need aspiration. Orthopedic on board. Status: Acute
[2017-04-07] MEDS ORDERED: Oxycodone/Acetaminophen 5/325 mg Tab PO PRN (14:23)
--- NOTE | 2017-04-07 14:54 | RAD ---
PROCEDURE: Left Knee Radiographs. HISTORY: Pain. COMPARISON: 04/03/2017 FINDINGS: BONES: Minimally displaced comminuted proximal tibial fracture extending to the articular surface, involving the lateral tibial spine. No fibular fracture identified. JOINTS: No evidence of arthritis. JOINT EFFUSION: There is joint effusion/ hemarthrosis in the suprapatellar bursa. OTHER FINDINGS: None. IMPRESSION: Comminuted minimally displaced proximal tibial fracture.
[2017-04-07] MEDS ORDERED: Ergocalciferol 50,000 Intl Units Cap PO SCH (16:45)
--- NOTE | 2017-04-07 16:45 | CP.PCM.CON ---
History of Present Illness - History of Present Illness History of Present Illness: Orthopedic consultation Dr. Schwartz 57F complains of left knee pain after fall 4 days prior to admission. She was seen and splinted in the ER, and instructed to f/u Dr. Schwartz. She returned for severe pain. Patient lives alone. Denies numbness/tingling/CP/SOB/dizziness/ n/v. No other complaints of pain from the fall Review of Systems - Review of Systems All systems: reviewed and no additional remarkable complaints except - Constitutional Additional comments: no fever/chills - Cardiovascular Cardiovascular: As Per HPI - Respiratory Respiratory: As Per HPI - Gastrointestinal Gastrointestinal: As Per HPI - Musculoskeletal Musculoskeletal: As Per HPI - Neurological Neurological: As Per HPI - Hematologic/Lymphatic Hematologic: absent: As Per HPI, Easy Bleeding, Easy Bruising, Lymphadenopathy, Other Past Patient History - Infectious Disease Hx of Infectious Diseases: None - Past Medical History & Family History Past Medical History?: Yes Past Family History: Reviewed and not pertinent - Past Social History Smoking Status: Heavy Smoker > 10 Cigarettes Daily - CARDIAC Hx Cardiac Disorders: Yes Hx Hypercholesterolemia: Yes - PULMONARY Hx Respiratory Disorders: Yes Hx Asthma: Yes - NEUROLOGICAL Hx Neurological Disorder: No - HEENT Hx HEENT Problems: No - RENAL Hx Chronic Kidney Disease: No - ENDOCRINE/METABOLIC Hx Endocrine Disorders: No - HEMATOLOGICAL/ONCOLOGICAL Hx Blood Disorders: No - INTEGUMENTARY Hx Dermatological Problems: No - MUSCULOSKELETAL/RHEUMATOLOGICAL Hx Arthritis: Yes - GASTROINTESTINAL Hx Gastrointestinal Disorders: No - GENITOURINARY/GYNECOLOGICAL Hx Genitourinary Disorders: No - PSYCHIATRIC Hx Substance Use: No - SURGICAL HISTORY Hx Surgeries: Yes Hx Arthroscopy: Yes (LEFT SHOULDER AND LEFT ELBOW; FALL 2009) Hx Section: Yes (X1) - ANESTHESIA Hx Anesthesia: Yes Hx Anesthesia Reactions: No Hx Malignant Hyperthermia: No Has any member of the family had a problem w/ anesthesia?: No Meds Allergies/Adverse Reactions: Allergies Allergy/AdvReac Type Severity Reaction Status Date / Time No Known Allergies Allergy Verified 04/06/17 14:35 - Medications Medications: Current Medications Docusate Sodium (Colace) 100 mg PO BID [facility] Last Admin: 04/07/17 09:55 Dose: 100 mg Ergocalciferol (Drisdol 50,000 Intl Units Cap) 1 cap PO Q7D [facility] Hydromorphone HCl (Dilaudid) 0.5 mg IVP Q4H PRN PRN Reason: Pain, Mild (1-3) Last Admin: 04/07/17 11:48 Dose: 0.5 mg Ceftriaxone Sodium 1 gm/ (Sodium Chloride) 100 mls @ 100 mls/hr IVPB DAILY [facility] Last Admin: 04/07/17 10:03 Dose: 100 mls/hr Dextrose/Sodium Chloride (Dextrose 5%/0.45% Ns 1000 Ml) 1,000 mls @ 80 mls/hr IV .[id number] [facility] Last Admin: 04/07/17 09:56 Dose: 80 mls/hr Sodium Chloride (Sodium Chloride 0.9%) 1,000 mls @ 80 mls/hr IV .[id number] [facility] Magnesium Hydroxide (Milk Of Magnesia) 30 ml PO HS [facility] Ondansetron HCl (Zofran Inj) 4 mg IVP Q6 PRN PRN Reason: Nausea/Vomiting Oxycodone/Acetaminophen (Percocet 5/325 Mg Tab) 2 tab PO Q4H PRN PRN Reason: Pain, moderate (4-7) Stop: 04/10/17 14:24 Last Admin: 04/07/17 15:30 Dose: 2 tab Pantoprazole Sodium (Protonix Inj) 40 mg IVP DAILY [facility] Last Admin: 04/07/17 09:55 Dose: 40 mg Physical Exam - Constitutional Appears: Well, No Acute Distress Additional comments: acute distress during exam/ronny bandage application - Head Exam Head Exam: ATRAUMATIC - Neck Exam Neck exam: Positive for: Full Rom, Normal Inspection - Respiratory Exam Respiratory Exam: NORMAL BREATHING PATTERN - Cardiovascular Exam Additional comments: +DP/PT pulses leg elevated ronny applied, splint adjusted ice applied - Extremities Exam Additional comments: sensation intact - Expanded Lower Extremities Exam Left Knee exam: swelling Lower Leg Exam: swelling (calf non tender, no palpable cords, neg homans, no pain with PROM toes, compartments soft, no clinical suspicion of compartment syndrome) Ankle exam: swelling (non tender) Neuro vacular tendon exam: no vascular compromise - Neurological Exam Neurological exam: Alert, Oriented x3 - Psychiatric Exam Psychiatric exam: Normal Affect, Normal Mood - Skin Skin Exam: Dry, Intact, Normal Color, Warm Results - Vital Signs Recent Vital Signs: Last Vital Signs Temp 98.3 F 04/07/17 07:35 Pulse 80 12/06/17 13:19 Resp 20 04/07/17 07:35 BP 117/75 04/07/17 13:19 Pulse Ox 97 04/07/17 13:19 - Labs Result Diagrams: 04/07/17 06:40 04/07/17 06:40 Labs: Laboratory Results - last 24 hr 04/06/17 04/06/17 04/06/17 16:52 16:52 16:52 WBC 14.0 H RBC 4.84 Hgb 13.7 Hct 41.5 MCV 85.8 MCH 28.2 MCHC 32.9 L RDW 13.3 Plt Count 246 MPV 9.0 Neut % (Auto) 72.0 Lymph % (Auto) 21.4 [place] % (Auto) 5.4 Eos % (Auto) 0.4 Baso % (Auto) 0.8 Neut # 10.1 H Lymph # 3.0 [place] # 0.8 Eos # 0.1 Baso # 0.1 PT 12.6 H INR 1.1 APTT 28 Sodium 139 Potassium 3.7 Chloride 100 Carbon Dioxide 31 H Anion Gap 12 BUN 12 Creatinine 0.6 L Est GFR ( Amer) > 60 Est GFR (Non-Af Amer) > 60 Random Glucose 109 H Hemoglobin A1c Calcium 8.1 L Iron TIBC % Saturation Total Bilirubin 0.8 AST 22 ALT 30 Alkaline Phosphatase 77 Total Protein 7.4 Albumin 4.1 Globulin 3.4 Albumin/Globulin Ratio 1.2 Triglycerides Cholesterol LDL Cholesterol Direct HDL Cholesterol Vitamin B12 25-OH Vitamin D Total Folate TSH 3rd Generation 04/06/17 04/06/17 04/06/17 22:18 22:18 22:18 WBC RBC Hgb Hct MCV MCH MCHC RDW Plt Count MPV Neut % (Auto) Lymph % (Auto) [place] % (Auto) Eos % (Auto) Baso % (Auto) Neut # Lymph # [place] # Eos # Baso # PT INR APTT Sodium Potassium Chloride Carbon Dioxide Anion Gap BUN Creatinine Est GFR ( Amer) Est GFR (Non-Af Amer) Random Glucose Hemoglobin A1c 6.3 Calcium Iron 27 L TIBC 269 % Saturation 10 L Total Bilirubin AST ALT Alkaline Phosphatase Total Protein Albumin Globulin Albumin/Globulin Ratio Triglycerides 265 H D Cholesterol 162 LDL Cholesterol Direct 99 HDL Cholesterol 26 L Vitamin B12 288 25-OH Vitamin D Total Folate 10.8 TSH 3rd Generation 04/07/17 04/07/17 04/07/17 06:40 06:40 14:11 WBC 11.2 H RBC 4.62 Hgb 13.2 Hct 39.8 MCV 86.3 MCH 28.6 MCHC 33.1 RDW 13.4 Plt Count 270 MPV 9.0 Neut % (Auto) Lymph % (Auto) [place] % (Auto) Eos % (Auto) Baso % (Auto) Neut # Lymph # [place] # Eos # Baso # PT INR APTT Sodium 141 Potassium 4.0 Chloride 102 Carbon Dioxide 30 Anion Gap 13 BUN 14 Creatinine 0.7 Est GFR ( Amer) > 60 Est GFR (Non-Af Amer) > 60 Random Glucose 122 H Hemoglobin A1c Calcium 8.5 L Iron TIBC % Saturation Total Bilirubin AST ALT Alkaline Phosphatase Total Protein Albumin Globulin Albumin/Globulin Ratio Triglycerides Cholesterol LDL Cholesterol Direct HDL Cholesterol Vitamin B12 25-OH Vitamin D Total 15.4 L Folate TSH 3rd Generation 1.44 - Impressions Impression: Patient Name / ID : NATA Ritter / [id number] Exam Date : 04/07/2017 10:28:00 ( Approved ) Study Comment : Sex / Age : F / 57Y Creator : Emanuel Damon MD Dictator : Emanuel Damon MD Carriage Feeder : Laborer Livestock : Emanuel Damon MD Approver2 : Report Date : 04/07/2017 14:48:41 My Comment : PROCEDURE: Left Knee Radiographs. HISTORY: Pain. COMPARISON: 04/03/2017 FINDINGS: BONES: Minimally displaced comminuted proximal tibial fracture extending to the articular surface, involving the lateral tibial spine. No fibular fracture identified. JOINTS: No evidence of arthritis. JOINT EFFUSION: There is joint effusion/ hemarthrosis in the suprapatellar bursa. OTHER FINDINGS: None. IMPRESSION: Comminuted minimally displaced proximal tibial fracture. atient Name / ID : NATA Ritter / [id number] Exam Date : 04/07/2017 10:14:44 ( Approved ) Study Comment : Sex / Age : F / 57Y Creator : Raeann Kate Dictator : Emanuel Damon MD Carriage Feeder : Laborer Livestock : Emanuel Damon MD Approver2 : Report Date : 04/07/2017 10:31:14 My Comment : PROCEDURE: CT left lower extremity HISTORY: fracture COMPARISON: Not available TECHNIQUE: 2.5 mm contiguous axial sections were acquired through the left knee. Sagittal and coronal images were reformatted from the axial scan. There is no prior examination available for comparison. FINDINGS: There is a comminuted minimally displaced proximal tibial fracture extending from the lateral tibial plateau obliquely towards the medial tibial diaphysis and obliquely towards the lateral tibial diaphysis. There is no other fracture identified. There is a curvilinear ossific density adjacent to the medial femoral epicondyles which may be the result of an old avulsion injury as there is no donor site evident on the current examination. There is a lipohemarthrosis in the suprapatellar bursa. IMPRESSION: Comminuted intra-articular proximal tibial fracture. Possible old medial epicondylar avulsion injury. Lipohemarthrosis noted. Assessment & Plan (1) Closed fracture of left tibial plateau Assessment and Plan: NPO for possible OR tomorrow ID consultation pending for ?sepsis, labs in am, urine pending, possibly reactive leukocytosis, afebrile NWB, elevation, pain medication adjusted swelling in ankle due to dependent position, elevated d/w Dr. Yost, agrees with above Status: Acute
[2017-04-07] MEDS: Sodium Chloride 0.9% 1,000 ML IV SCH (17:00)
[2017-04-07] MEDS: Ergocalciferol 50,000 Intl Units Cap PO SCH (19:41)
[2017-04-07] MEDS: Magnesium Hydroxide Susp 30 ml UD PO SCH (21:39)
[2017-04-07 23:06] LABS: RBC URINE 1 /hpf (0-3); URINE BILIRUBIN NEGATIVE (NEGATIVE); URINE BLOOD NEGATIVE (NEGATIVE); URINE COLOR Yellow (YELLOW); URINE GLUCOSE (UA) NORMAL (Normal); URINE KETONE NEGATIVE (NEGATIVE); URINE LEUKOCYTE ESTERASE TRACE Leu/uL (Negative); URINE PROTEIN NEGATIVE (NEGATIVE); URINE UROBILINOGEN NORMAL mg/dL (0.2-1.0); WBC URINE 3 /hpf (0-5)
--- NOTE | 2017-04-07 23:50 | CP.PCM.CON ---
Past Patient History - Infectious Disease Hx of Infectious Diseases: None - Past Medical History & Family History Past Medical History?: Yes - Past Social History Smoking Status: Heavy Smoker > 10 Cigarettes Daily - CARDIAC Hx Cardiac Disorders: Yes Hx Hypercholesterolemia: Yes - PULMONARY Hx Respiratory Disorders: Yes Hx Asthma: Yes - NEUROLOGICAL Hx Neurological Disorder: No - HEENT Hx HEENT Problems: No - RENAL Hx Chronic Kidney Disease: No - ENDOCRINE/METABOLIC Hx Endocrine Disorders: No - HEMATOLOGICAL/ONCOLOGICAL Hx Blood Disorders: No - INTEGUMENTARY Hx Dermatological Problems: No - MUSCULOSKELETAL/RHEUMATOLOGICAL Hx Falls: Yes - GASTROINTESTINAL Hx Gastrointestinal Disorders: No - GENITOURINARY/GYNECOLOGICAL Hx Genitourinary Disorders: No - PSYCHIATRIC Hx Substance Use: No - SURGICAL HISTORY Hx Surgeries: Yes Hx Arthroscopy: Yes (LEFT SHOULDER AND LEFT ELBOW; FALL 2009) Hx Section: Yes (X1) - ANESTHESIA Hx Anesthesia: Yes Hx Anesthesia Reactions: No Hx Malignant Hyperthermia: No Has any member of the family had a problem w/ anesthesia?: No Meds Allergies/Adverse Reactions: Allergies Allergy/AdvReac Type Severity Reaction Status Date / Time No Known Allergies Allergy Verified 04/06/17 14:35 - Medications Medications: Current Medications Calcium/Vitamin D (Oscal-D 250 Mg-125 Units Tab) 1 tab PO DAILY [facility] Docusate Sodium (Colace) 100 mg PO BID [facility] Last Admin: 04/07/17 17:50 Dose: Not Given Ergocalciferol (Drisdol 50,000 Intl Units Cap) 1 cap PO Q7D [facility] Last Admin: 04/07/17 19:41 Dose: 1 cap Fenofibrate (Tricor) 145 mg PO QPM [facility] Hydromorphone HCl (Dilaudid) 0.5 mg IVP Q4H PRN PRN Reason: Pain, Mild (1-3) Last Admin: 04/07/17 20:52 Dose: 0.5 mg Ceftriaxone Sodium 1 gm/ (Sodium Chloride) 100 mls @ 100 mls/hr IVPB DAILY [facility] Last Admin: 04/07/17 10:03 Dose: 100 mls/hr Sodium Chloride (Sodium Chloride 0.9%) 1,000 mls @ 80 mls/hr IV .[id number] [facility] Last Admin: 04/07/17 17:00 Dose: 80 mls/hr Iron (Ferocon) 1 cap PO DAILY [facility] Magnesium Hydroxide (Milk Of Magnesia) 30 ml PO HS [facility] Last Admin: 04/07/17 21:39 Dose: 30 ml Ondansetron HCl (Zofran Inj) 4 mg IVP Q6 PRN PRN Reason: Nausea/Vomiting Oxycodone/Acetaminophen (Percocet 5/325 Mg Tab) 2 tab PO Q4H PRN PRN Reason: Pain, moderate (4-7) Stop: 04/10/17 14:24 Last Admin: 04/07/17 15:30 Dose: 2 tab Pantoprazole Sodium (Protonix Inj) 40 mg IVP DAILY [facility] Last Admin: 04/07/17 09:55 Dose: 40 mg Results - Vital Signs Recent Vital Signs: Last Vital Signs Temp 98.2 F 04/07/17 23:41 Pulse 78 04/07/17 23:41 Resp 20 04/07/17 23:41 BP 103/73 04/07/17 23:41 Pulse Ox 96 04/07/17 23:41 - Labs Result Diagrams: 04/07/17 06:40 04/07/17 06:40 Labs: Laboratory Results - last 24 hr 04/07/17 04/07/17 04/07/17 06:40 06:40 14:11 WBC 11.2 H RBC 4.62 Hgb 13.2 Hct 39.8 MCV 86.3 MCH 28.6 MCHC 33.1 RDW 13.4 Plt Count 270 MPV 9.0 Sodium 141 Potassium 4.0 Chloride 102 Carbon Dioxide 30 Anion Gap 13 BUN 14 Creatinine 0.7 Est GFR ( Amer) > 60 Est GFR (Non-Af Amer) > 60 Random Glucose 122 H Calcium 8.5 L 25-OH Vitamin D Total 15.4 L TSH 3rd Generation 1.44 Urine Color Urine Clarity Urine pH Ur Specific [place] Urine Protein Urine Glucose (UA) Urine Ketones Urine Blood Urine Nitrate Urine Bilirubin Urine Urobilinogen Ur Leukocyte Esterase Urine WBC (Auto) Urine RBC (Auto) Ur Squamous Epith Cells Blood Type Antibody Screen 04/07/17 04/07/17 19:48 23:10 WBC RBC Hgb Hct MCV MCH MCHC RDW Plt Count MPV Sodium Potassium Chloride Carbon Dioxide Anion Gap BUN Creatinine Est GFR ( Amer) Est GFR (Non-Af Amer) Random Glucose Calcium 25-OH Vitamin D Total TSH 3rd Generation Urine Color Yellow Urine Clarity Clear Urine pH 6.0 Ur Specific [place] 1.010 Urine Protein Negative Urine Glucose (UA) Normal Urine Ketones Negative Urine Blood Negative Urine Nitrate Negative Urine Bilirubin Negative Urine Urobilinogen Normal Ur Leukocyte Esterase Trace Urine WBC (Auto) 3 Urine RBC (Auto) 1 Ur Squamous Epith Cells 1 Blood Type A POSITIVE Antibody Screen Negative
--- NOTE | 2017-04-08 03:38 | PN ---
DATE: 04/07/2017 SUBJECTIVE: The patient was seen and examined at the bedside, looking comfortable, still complaining about her leg pain. No nausea, vomiting, diarrhea. No hematuria. No hematochezia. No headache, no dizziness. Denies any chest pain or palpitations. PHYSICAL EXAMINATION: VITAL SIGNS: Temperature 98.4, pulse 77, blood pressure 125/80, respiratory rate 20. HEENT: Head, normocephalic and atraumatic. Eyes PERRLA. Extraocular muscles are intact. Conjunctivae clear. Nose patent. Mucous membranes moist. NECK: Supple. No carotid bruit. No JVD. No thyromegaly. CHEST: Bilaterally symmetrical. HEART: S1 and S2 positive. LUNGS: Clear to auscultation. ABDOMEN: Soft. Bowel sounds present. No organomegaly. EXTREMITIES: The left extremity has a cast. Right lower extremity and upper extremity, no edema no cyanosis. NEUROLOGICAL: The patient is awake and alert, oriented x3. MEDICATIONS: Ceftriaxone, Colace, Dilaudid, vitamin D, milk of magnesia, Percocet, Protonix, MS, Zofran. LABORATORY DATA: Sodium 141, potassium 4.0, BUN 14, creatinine 0.7, random glucose 122, calcium 8.5. White blood cells 11.2, hemoglobin 13.2, hematocrit 39.8, platelets 270. ASSESSMENT AND PLAN: Ms. Donald Caballero is a 57-year-old lady with leukocytosis, improving after getting antibiotics, hyperglycemia, hypocalcemia, iron deficiency, hypertriglyceridemia, has comminuted intraarticular proximal tibial fracture of possibly old medial epicondyle avulsion injury. Lipohemarthrosis noted. Orthopedics is on the case. May be patient has to go to Operating Room tomorrow for cardiology consult for cardiac clearance, seen by Dr. Mike Thompson MD, Infectious Disease. Continue antibiotics as per Dr. Mike Thompson, Infectious Disease. Knee x-ray noted, lower extremity CT noted. Discussion done with the Nurse Practitioner. To remove the stitches on the chin. Surgical consult called for that. We will follow up. Brenna Lamas MD [facility] # [id number] MTDD
[2017-04-08] MEDS: HYDROmorphone 0.5 mg/0.5 ml ISec IVP PRN ×2 (05:11→09:47)
[2017-04-08] MEDS: Sodium Chloride 0.9% 1,000 ML IV SCH ×2 (05:11→17:56)
--- NOTE | 2017-04-08 07:57 | CP.PCM.CON ---
<John Barber - Last Filed: 04/08/17 13:42> History of Present Illness - History of Present Illness History of Present Illness: Cardiology consult note for Dr. Lala Patient is a 57 year old female with a past medical history of asthma and hypercholesterolemia who presented to [facility] on 04/03/17, s/p fall with complaints of left knee pain found to have a comminuted minimally displaced proximal tibial fracture extending from the lateral tibial plateau obliquely towards the medial tibial diaphysis and obliquely towards the lateral tibial diaphysis with a joint effusion in suprapatellar bursa. Patient was evaluated by orthopedic surgery and evaluated for possible surgery 04/08/17. Patient is also currently being treated for leukocytosis for which ID is on board. Cardiology is consulted for preoperative evaluation. Review of Systems - Constitutional Constitutional: absent: Chills, Headache, Malaise, Weakness - EENT Eyes: absent: Blurred Vision, Change in Vision, Diplopia - Cardiovascular Cardiovascular: absent: Chest Pain - Respiratory Respiratory: absent: Cough, Dyspnea, Snoring - Gastrointestinal Gastrointestinal: absent: Abdominal Pain, Cramping, Diarrhea - Genitourinary Genitourinary: absent: Change in Urinary Stream, Difficulty Urinating - Musculoskeletal Musculoskeletal: absent: Arthralgias, Back Pain, Limited Range of Motion - Psychiatric Psychiatric: absent: Abnormal Sleep Pattern, Anxiety, Confusion - Hematologic/Lymphatic Hematologic: absent: Easy Bleeding, Easy Bruising Past Patient History - Infectious Disease Hx of Infectious Diseases: None - Past Medical History & Family History Past Medical History?: Yes - Past Social History Smoking Status: Heavy Smoker > 10 Cigarettes Daily - CARDIAC Hx Cardiac Disorders: Yes Hx Hypercholesterolemia: Yes - PULMONARY Hx Respiratory Disorders: Yes Hx Asthma: Yes - NEUROLOGICAL Hx Neurological Disorder: No - HEENT Hx HEENT Problems: No - RENAL Hx Chronic Kidney Disease: No - ENDOCRINE/METABOLIC Hx Endocrine Disorders: No - HEMATOLOGICAL/ONCOLOGICAL Hx Blood Disorders: No - INTEGUMENTARY Hx Dermatological Problems: No - MUSCULOSKELETAL/RHEUMATOLOGICAL Hx Falls: Yes - GASTROINTESTINAL Hx Gastrointestinal Disorders: No - GENITOURINARY/GYNECOLOGICAL Hx Genitourinary Disorders: No - PSYCHIATRIC Hx Substance Use: No - SURGICAL HISTORY Hx Surgeries: Yes Hx Arthroscopy: Yes (LEFT SHOULDER AND LEFT ELBOW; FALL 2009) Hx Section: Yes (X1) - ANESTHESIA Hx Anesthesia: Yes Hx Anesthesia Reactions: No Hx Malignant Hyperthermia: No Has any member of the family had a problem w/ anesthesia?: No Meds Allergies/Adverse Reactions: Allergies Allergy/AdvReac Type Severity Reaction Status Date / Time No Known Allergies Allergy Verified 04/06/17 14:35 - Medications Medications: Current Medications Calcium/Vitamin D (Oscal-D 250 Mg-125 Units Tab) 1 tab PO DAILY [facility] Docusate Sodium (Colace) 100 mg PO BID [facility] Last Admin: 04/07/17 17:50 Dose: Not Given Ergocalciferol (Drisdol 50,000 Intl Units Cap) 1 cap PO Q7D [facility] Last Admin: 04/07/17 19:41 Dose: 1 cap Fenofibrate (Tricor) 145 mg PO QPM [facility] Hydromorphone HCl (Dilaudid) 0.5 mg IVP Q4H PRN PRN Reason: Pain, Mild (1-3) Last Admin: 04/08/17 05:11 Dose: 0.5 mg Ceftriaxone Sodium 1 gm/ (Sodium Chloride) 100 mls @ 100 mls/hr IVPB DAILY [facility] Last Admin: 04/07/17 10:03 Dose: 100 mls/hr Sodium Chloride (Sodium Chloride 0.9%) 1,000 mls @ 80 mls/hr IV .[id number] [facility] Last Admin: 04/08/17 05:11 Dose: 80 mls/hr Iron (Ferocon) 1 cap PO DAILY [facility] Magnesium Hydroxide (Milk Of Magnesia) 30 ml PO HS [facility] Last Admin: 04/07/17 21:39 Dose: 30 ml Ondansetron HCl (Zofran Inj) 4 mg IVP Q6 PRN PRN Reason: Nausea/Vomiting Oxycodone/Acetaminophen (Percocet 5/325 Mg Tab) 2 tab PO Q4H PRN PRN Reason: Pain, moderate (4-7) Stop: 04/10/17 14:24 Last Admin: 04/07/17 15:30 Dose: 2 tab Pantoprazole Sodium (Protonix Inj) 40 mg IVP DAILY [facility] Last Admin: 04/07/17 09:55 Dose: 40 mg Physical Exam - Constitutional Appears: Well - Head Exam Head Exam: ATRAUMATIC, NORMAL INSPECTION, NORMOCEPHALIC - Eye Exam Eye Exam: EOMI, Normal appearance - ENT Exam ENT Exam: Mucous Membranes Moist, Normal Exam - Neck Exam Neck exam: Positive for: Normal Inspection - Respiratory Exam Respiratory Exam: Clear to Auscultation Bilateral, NORMAL BREATHING PATTERN. absent: Rhonchi, Wheezes - Cardiovascular Exam Cardiovascular Exam: REGULAR RHYTHM, +S1, +S2 - GI/Abdominal Exam GI & Abdominal Exam: Normal Bowel Sounds, Soft - Extremities Exam Additional comments: Bandaged left lower extremity - Back Exam Back exam: NORMAL INSPECTION - Neurological Exam Neurological exam: Alert, Oriented x3 - Skin Skin Exam: Normal Color, Warm Results - Vital Signs Recent Vital Signs: Last Vital Signs Temp 98.2 F 04/07/17 23:41 Pulse 78 04/07/17 23:41 Resp 20 04/07/17 23:41 BP 103/73 04/07/17 23:41 Pulse Ox 96 04/07/17 23:41 - Labs Result Diagrams: 04/08/17 08:16 04/08/17 08:16 Labs: Laboratory Results - last 24 hr 04/07/17 04/07/17 04/07/17 14:11 19:48 23:10 25-OH Vitamin D Total 15.4 L Urine Color Yellow Urine Clarity Clear Urine pH 6.0 Ur Specific [place] 1.010 Urine Protein Negative Urine Glucose (UA) Normal Urine Ketones Negative Urine Blood Negative Urine Nitrate Negative Urine Bilirubin Negative Urine Urobilinogen Normal Ur Leukocyte Esterase Trace Urine WBC (Auto) 3 Urine RBC (Auto) 1 Ur Squamous Epith Cells 1 Blood Type A POSITIVE Antibody Screen Negative Assessment & Plan - Assessment and Plan (Free Text) Assessment: Patient is a 57 year old female with a past medical history of asthma and hypercholesterolemia who presented to [facility] on 04/03/17, s/p fall with complaints of left knee pain found to have a comminuted minimally displaced proximal tibial fracture Plan: 1. Preoperative Cardiology Evaluation - EKG reveals NSR - Fall was mechanical, not due to syncopal episode - Patient has a high functional capacity; states she is never laying around, she is always walking and active throughout the day - Patient is cleared for surgery from a cardiology standpoint <Helio Lala - Last Filed: 04/08/17 23:57> Meds - Medications Medications: Current Medications Calcium/Vitamin D (Oscal-D 250 Mg-125 Units Tab) 1 tab PO DAILY [facility] Last Admin: 04/08/17 11:22 Dose: 1 tab Docusate Sodium (Colace) 100 mg PO BID [facility] Last Admin: 04/08/17 17:54 Dose: 100 mg Enoxaparin Sodium (Lovenox) 40 mg SC DAILY [facility] Last Admin: 04/08/17 11:39 Dose: 40 mg Ergocalciferol (Drisdol 50,000 Intl Units Cap) 1 cap PO Q7D [facility] Last Admin: 04/07/17 19:41 Dose: 1 cap Fenofibrate (Tricor) 145 mg PO QPM [facility] Last Admin: 04/08/17 17:54 Dose: 145 mg Hydromorphone HCl (Dilaudid) 1 mg IVP Q4H PRN PRN Reason: Pain, Mild (1-3) Last Admin: 04/08/17 21:59 Dose: 1 mg Ceftriaxone Sodium 1 gm/ (Sodium Chloride) 100 mls @ 100 mls/hr IVPB DAILY [facility] Last Admin: 04/08/17 11:07 Dose: 100 mls/hr Sodium Chloride (Sodium Chloride 0.9%) 1,000 mls @ 80 mls/hr IV .[id number] [facility] Last Admin: 04/08/17 17:56 Dose: 80 mls/hr Iron (Ferocon) 1 cap PO DAILY [facility] Last Admin: 04/08/17 11:22 Dose: 1 cap Magnesium Hydroxide (Milk Of Magnesia) 30 ml PO HS [facility] Last Admin: 04/08/17 21:51 Dose: Not Given Ondansetron HCl (Zofran Inj) 4 mg IVP Q6 PRN PRN Reason: Nausea/Vomiting Oxycodone/Acetaminophen (Percocet 5/325 Mg Tab) 1 tab PO Q4H PRN PRN Reason: Pain, moderate (4-7) Stop: 04/10/17 14:24 Pantoprazole Sodium (Protonix Inj) 40 mg IVP DAILY [facility] Last Admin: 04/08/17 09:54 Dose: 40 mg Senna/Docusate Sodium (Senokot S 50 Mg-8.6 Mg) 1 tab PO BID [facility] Last Admin: 04/08/17 17:54 Dose: 1 tab Results - Vital Signs Recent Vital Signs: Last Vital Signs Temp 98.8 F 04/08/17 23:52 Pulse 76 04/08/17 23:52 Resp 16 04/08/17 23:52 BP 102/65 04/08/17 23:52 Pulse Ox 98 04/08/17 23:52 - Labs Result Diagrams: 04/08/17 08:16 04/08/17 08:16 Labs: Laboratory Results - last 24 hr 04/08/17 04/08/17 08:16 08:16 WBC 9.6 RBC 4.37 Hgb 12.5 Hct 37.8 MCV 86.5 MCH 28.6 MCHC 33.1 RDW 13.2 Plt Count 271 MPV 9.0 Sodium 139 Potassium 4.4 Chloride 104 Carbon Dioxide 31 H Anion Gap 9 L BUN 14 Creatinine 0.7 Est GFR ( Amer) > 60 Est GFR (Non-Af Amer) > 60 Random Glucose 115 H Calcium 7.9 L Assessment & Plan (1) Preop cardiovascular exam Status: Acute (2) Dyslipidemia Status: Acute (3) HTN (hypertension) Status: Acute (4) Closed fracture of left tibial plateau Status: Acute (5) Intractable pain Status: Acute Attending/Attestation - Attestation I have personally seen and examined this patient.: Yes I have fully participated in the care of the patient.: Yes I have reviewed all pertinent clinical information: Yes Notes (Text): 04/08/17 23:56 As per ACC/AHA guidelines she is active at baseline with > 4 METs of activity. EKG shows no evidence of ischemia. She can proceed with planned orthopedic surgery with low risk for perioperative cardiac event.
--- NOTE | 2017-04-08 08:32 | CP.PCM.PN ---
Subjective - Date & Time of Evaluation Date of Evaluation: 04/08/17 Time of Evaluation: 08:30 - Subjective Subjective: OR cancelled per Dr. Schwartz. Cardiac clearance pending. ID consultation appreciated, cultures pending. Objective - Vital Signs/Intake and Output Vital Signs (last 24 hours): Temp Pulse Resp BP Pulse Ox 98.5 F 75 20 117/74 97 04/08/17 07:59 04/08/17 07:59 04/08/17 07:59 04/08/17 07:59 04/08/17 07:59 Intake and Output: 04/08/17 04/08/17 06:59 18:59 Intake Total 1580 Output Total 250 Balance 1330 - Medications Medications: Current Medications Calcium/Vitamin D (Oscal-D 250 Mg-125 Units Tab) 1 tab PO DAILY [facility] Docusate Sodium (Colace) 100 mg PO BID [facility] Last Admin: 04/07/17 17:50 Dose: Not Given Enoxaparin Sodium (Lovenox) 40 mg SC DAILY [facility] Ergocalciferol (Drisdol 50,000 Intl Units Cap) 1 cap PO Q7D [facility] Last Admin: 04/07/17 19:41 Dose: 1 cap Fenofibrate (Tricor) 145 mg PO QPM [facility] Hydromorphone HCl (Dilaudid) 0.5 mg IVP Q4H PRN PRN Reason: Pain, Mild (1-3) Last Admin: 04/08/17 05:11 Dose: 0.5 mg Ceftriaxone Sodium 1 gm/ (Sodium Chloride) 100 mls @ 100 mls/hr IVPB DAILY [facility] Last Admin: 04/07/17 10:03 Dose: 100 mls/hr Sodium Chloride (Sodium Chloride 0.9%) 1,000 mls @ 80 mls/hr IV .[id number] [facility] Last Admin: 04/08/17 05:11 Dose: 80 mls/hr Iron (Ferocon) 1 cap PO DAILY [facility] Magnesium Hydroxide (Milk Of Magnesia) 30 ml PO HS [facility] Last Admin: 04/07/17 21:39 Dose: 30 ml Ondansetron HCl (Zofran Inj) 4 mg IVP Q6 PRN PRN Reason: Nausea/Vomiting Oxycodone/Acetaminophen (Percocet 5/325 Mg Tab) 2 tab PO Q4H PRN PRN Reason: Pain, moderate (4-7) Stop: 04/10/17 14:24 Last Admin: 04/07/17 15:30 Dose: 2 tab Pantoprazole Sodium (Protonix Inj) 40 mg IVP DAILY [facility] Last Admin: 04/07/17 09:55 Dose: 40 mg - Labs Labs: 04/07/17 06:40 04/07/17 06:40 PT 12.6 SECONDS (9.7-12.2) H 04/06/17 16:52 INR 1.1 04/06/17 16:52 APTT 28 SECONDS (21-34) 04/06/17 16:52 Assessment and Plan (1) Closed fracture of left tibial plateau Status: Acute
[2017-04-08 08:33] LABS: HEMATOCRIT 37.8 % (34.0-47.0); MEAN CELL VOLUME 86.5 fL (81.0-99.0); MEAN CORPUSCULAR HEMOGLOBIN 28.6 pg (27.0-31.0); MEAN CORPUSCULAR HGB CONC 33.1 g/dL (33.0-37.0); RED CELL DISTRIBUTION WIDTH 13.2 % (11.5-14.5); WHITE BLOOD COUNT 9.6 K/uL (4.8-10.8)
[2017-04-08 08:48] LABS: BLOOD UREA NITROGEN 14 mg/dL (7-17); CALCIUM 7.9 mg/dl (8.6-10.4); CARBON DIOXIDE 31 mmol/L (22-30); CHLORIDE 104 mmol/L (98-107); GFR AFRICAN-AMERICAN > 60; GLUCOSE,RANDOM 115 mg/dL (65-105); POTASSIUM 4.4 mmol/L (3.6-5.2); SODIUM 139 mmol/L (132-148)
[2017-04-08] MEDS ORDERED: Oxycodone/Acetaminophen 5/325 mg Tab PO PRN (10:47)
[2017-04-08] MEDS: Calcium-Vit D 250 mg-125 Units Tab UD PO SCH (11:22)
[2017-04-08] MEDS: Ferrous Fum/Folic Acid/IF/VI 1 Cap PO SCH (11:22)
[2017-04-08] MEDS: Enoxaparin 40 mg Syringe SC SCH (11:39)
[2017-04-08] MEDS: HYDROmorphone 1 mg/ml ISec IVP PRN ×2 (15:57→21:59)
[2017-04-08] MEDS: Docusate-Senna 50 mg-8.6 mg Tab PO SCH (17:54)
[2017-04-08] MEDS: Magnesium Hydroxide Susp 30 ml UD PO SCH (21:51)
--- NOTE | 2017-04-08 23:28 | CP.PCM.PN ---
Subjective - Date & Time of Evaluation Date of Evaluation: 04/08/17 Time of Evaluation: 23:28 - Subjective Subjective: AFEBRILE, C/O PAIN LEFT KNEE. CLINICALLY SAME SEEN BY CARDIOLOGY FOR CLEARANCE PATIENT FOR OR IN A.M. Objective - Vital Signs/Intake and Output Vital Signs (last 24 hours): Temp Pulse Resp BP Pulse Ox 98.8 F 81 20 121/74 95 04/08/17 15:00 04/08/17 15:00 04/08/17 15:00 04/08/17 15:00 04/08/17 15:00 Intake and Output: 04/08/17 04/09/17 18:59 06:59 Intake Total 960 640 Output Total 600 Balance 960 40 - Medications Medications: Current Medications Calcium/Vitamin D (Oscal-D 250 Mg-125 Units Tab) 1 tab PO DAILY [facility] Last Admin: 04/08/17 11:22 Dose: 1 tab Docusate Sodium (Colace) 100 mg PO BID [facility] Last Admin: 04/08/17 17:54 Dose: 100 mg Enoxaparin Sodium (Lovenox) 40 mg SC DAILY [facility] Last Admin: 04/08/17 11:39 Dose: 40 mg Ergocalciferol (Drisdol 50,000 Intl Units Cap) 1 cap PO Q7D [facility] Last Admin: 04/07/17 19:41 Dose: 1 cap Fenofibrate (Tricor) 145 mg PO QPM [facility] Last Admin: 04/08/17 17:54 Dose: 145 mg Hydromorphone HCl (Dilaudid) 1 mg IVP Q4H PRN PRN Reason: Pain, Mild (1-3) Last Admin: 04/08/17 21:59 Dose: 1 mg Ceftriaxone Sodium 1 gm/ (Sodium Chloride) 100 mls @ 100 mls/hr IVPB DAILY [facility] Last Admin: 04/08/17 11:07 Dose: 100 mls/hr Sodium Chloride (Sodium Chloride 0.9%) 1,000 mls @ 80 mls/hr IV .[id number] [facility] Last Admin: 04/08/17 17:56 Dose: 80 mls/hr Iron (Ferocon) 1 cap PO DAILY [facility] Last Admin: 04/08/17 11:22 Dose: 1 cap Magnesium Hydroxide (Milk Of Magnesia) 30 ml PO HS [facility] Last Admin: 04/08/17 21:51 Dose: Not Given Ondansetron HCl (Zofran Inj) 4 mg IVP Q6 PRN PRN Reason: Nausea/Vomiting Oxycodone/Acetaminophen (Percocet 5/325 Mg Tab) 1 tab PO Q4H PRN PRN Reason: Pain, moderate (4-7) Stop: 04/10/17 14:24 Pantoprazole Sodium (Protonix Inj) 40 mg IVP DAILY [facility] Last Admin: 04/08/17 09:54 Dose: 40 mg Senna/Docusate Sodium (Senokot S 50 Mg-8.6 Mg) 1 tab PO BID [facility] Last Admin: 04/08/17 17:54 Dose: 1 tab - Labs Labs: 04/08/17 08:16 04/08/17 08:16 PT 12.6 SECONDS (9.7-12.2) H 04/06/17 16:52 INR 1.1 04/06/17 16:52 APTT 28 SECONDS (21-34) 04/06/17 16:52 - Constitutional Appears: No Acute Distress - Head Exam Head Exam: NORMAL INSPECTION - Eye Exam Eye Exam: EOMI, PERRL - ENT Exam ENT Exam: Normal Oropharynx - Neck Exam Neck Exam: Normal Inspection - Respiratory Exam Respiratory Exam: Clear to Ausculation Bilateral - Cardiovascular Exam Cardiovascular Exam: REGULAR RHYTHM, +S1, +S2 - GI/Abdominal Exam GI & Abdominal Exam: Soft, Normal Bowel Sounds - Extremities Exam Extremities Exam: absent: Calf Tenderness, Pedal Edema (LEFT LEG IN SOFT CAST.) - Neurological Exam Neurological Exam: Awake, Oriented x3 - Psychiatric Exam Psychiatric exam: Normal Mood - Skin Skin Exam: Normal Color, Warm Assessment and Plan (1) Leukocytosis Assessment & Plan: LEUKOCYTOSIS IMPROVING. WBC 9.6. Patient's mouth stitches with some purulence noted at the site of the stitches lower lip. Continue IV Rocephin 1 g once a day daily 04/06/17. Status: Acute (2) Laceration of mouth, complicated Status: Acute (3) Closed fracture of left tibial plateau Assessment & Plan: PATIENT FOR OR IN AM. START IV VANCOMYCIN 1GM IVPB Q 24HRLY IN OR. Status: Acute (4) Intractable pain Status: Acute (5) Knee fracture, left Status: Acute
[2017-04-09] MEDS ORDERED: Vancomycin 1 gm/NS 200 ml 1 GM/200 ML BAG IVPB SCH (06:00)
--- NOTE | 2017-04-09 06:44 | CP.PCM.PN ---
Subjective - Date & Time of Evaluation Date of Evaluation: 04/09/17 Time of Evaluation: 06:30 - Subjective Subjective: Patient states pain is better controlled. No new complaints. Objective - Vital Signs/Intake and Output Vital Signs (last 24 hours): Temp Pulse Resp BP Pulse Ox 98.8 F 76 16 102/65 98 04/08/17 23:52 04/08/17 23:52 04/08/17 23:52 04/08/17 23:52 04/08/17 23:52 Intake and Output: 04/08/17 04/09/17 18:59 06:59 Intake Total 960 640 Output Total 600 Balance 960 40 - Medications Medications: Current Medications Calcium/Vitamin D (Oscal-D 250 Mg-125 Units Tab) 1 tab PO DAILY [facility] Last Admin: 04/08/17 11:22 Dose: 1 tab Docusate Sodium (Colace) 100 mg PO BID [facility] Last Admin: 04/08/17 17:54 Dose: 100 mg Enoxaparin Sodium (Lovenox) 40 mg SC DAILY [facility] Last Admin: 04/08/17 11:39 Dose: 40 mg Ergocalciferol (Drisdol 50,000 Intl Units Cap) 1 cap PO Q7D [facility] Last Admin: 04/07/17 19:41 Dose: 1 cap Fenofibrate (Tricor) 145 mg PO QPM [facility] Last Admin: 04/08/17 17:54 Dose: 145 mg Hydromorphone HCl (Dilaudid) 1 mg IVP Q4H PRN PRN Reason: Pain, Mild (1-3) Last Admin: 04/08/17 21:59 Dose: 1 mg Ceftriaxone Sodium 1 gm/ (Sodium Chloride) 100 mls @ 100 mls/hr IVPB DAILY [facility] Last Admin: 04/08/17 11:07 Dose: 100 mls/hr Sodium Chloride (Sodium Chloride 0.9%) 1,000 mls @ 80 mls/hr IV .[id number] [facility] Last Admin: 04/08/17 17:56 Dose: 80 mls/hr Vancomycin/Sodium Chloride (Vancomycin 1 Gm/Ns 200 Ml) 1 gm in 200 mls @ 166.7 mls/hr IVPB Q24H [facility] Stop: 04/14/17 06:01 Iron (Ferocon) 1 cap PO DAILY [facility] Last Admin: 04/08/17 11:22 Dose: 1 cap Magnesium Hydroxide (Milk Of Magnesia) 30 ml PO HS [facility] Last Admin: 04/08/17 21:51 Dose: Not Given Ondansetron HCl (Zofran Inj) 4 mg IVP Q6 PRN PRN Reason: Nausea/Vomiting Oxycodone/Acetaminophen (Percocet 5/325 Mg Tab) 1 tab PO Q4H PRN PRN Reason: Pain, moderate (4-7) Stop: 04/10/17 14:24 Pantoprazole Sodium (Protonix Inj) 40 mg IVP DAILY [facility] Last Admin: 04/08/17 09:54 Dose: 40 mg Senna/Docusate Sodium (Senokot S 50 Mg-8.6 Mg) 1 tab PO BID [facility] Last Admin: 04/08/17 17:54 Dose: 1 tab - Labs Labs: 04/08/17 08:16 04/08/17 08:16 PT 12.6 SECONDS (9.7-12.2) H 04/06/17 16:52 INR 1.1 04/06/17 16:52 APTT 28 SECONDS (21-34) 04/06/17 16:52 - Extremities Exam Additional comments: Left LE: +ROM ankle/toes, pain improving, sensation intact, swelling improving, +DP/PT pusles calves soft NT neg hoamns leg elevated Assessment and Plan (1) Closed fracture of left tibial plateau Assessment & Plan: FOr OR wednesday cardio/ID appreciated, echo ordered pre op PT urine cx pending NPO p MN for OR d/w Dr. Yost, agrees with above Status: Acute
[2017-04-09] MEDS: HYDROmorphone 1 mg/ml ISec IVP PRN ×2 (10:00→18:17)
[2017-04-09] MEDS: Enoxaparin 40 mg Syringe SC SCH (10:00)
[2017-04-09] MEDS: Ferrous Fum/Folic Acid/IF/VI 1 Cap PO SCH (10:01)
[2017-04-09] MEDS: Calcium-Vit D 250 mg-125 Units Tab UD PO SCH (10:02)
[2017-04-09] MEDS: Docusate-Senna 50 mg-8.6 mg Tab PO SCH ×2 (10:02→18:17)
--- NOTE | 2017-04-09 11:55 | CARD ---
APPROVED REPORT EKG Measurement Heart [id number] <Conclusion> Normal sinus rhythm Normal ECG
--- NOTE | 2017-04-09 12:55 | PN ---
DATE: SUBJECTIVE: The patient is a 57-year-old female. The patient was seen and examined at the bedside, looking comfortable. No nausea, vomiting or diarrhea. No hematuria. No hematochezia. No swelling of the leg. Still having pain in the left leg. Other 3 extremities, there is no swelling, no cyanosis. PHYSICAL EXAMINATION: VITAL SIGNS: Temperature 98.8, pulse rate 81, blood pressure 121/74, respiratory rate of 20. HEENT: Head normocephalic and atraumatic. Eyes, PERRLA. Extraocular muscles intact. Conjunctivae clear. Nose patent. Mucous membranes are moist. NECK: Supple. No carotid bruits, JVD, or thyromegaly. CHEST: Bilaterally symmetrical. HEART: S1 and S2 positive. LUNGS: Clear to auscultation. ABDOMEN: Soft. Bowel sounds present. No organomegaly. EXTREMITIES: No edema. No cyanosis. NEUROLOGIC: The patient is awake and alert. Moving all 4 extremities. No focal deficit. MEDICATIONS: Ceftriaxone, Colace, Dilaudid, vitamin D, Ecotrin, Lovenox, Milk of Magnesia, multivitamins, Percocet, Protonix, Senokot, TriCor, Zofran. LABORATORY DATA: White blood cell is 9.6, hemoglobin 12.5, hematocrit 37.8, platelets 271. Sodium 139, potassium 4.4, BUN 14, creatinine 0.7, glucose 115, calcium 7.9. ASSESSMENT AND PLAN: Ms. Ada Bennett with a history of leukocytosis, improved; hyperglycemia, hemoglobin A1c 6.3; hypocalcemia, iron deficiency, vitamin D deficiency, hypertriglyceridemia, has fracture of the left leg, is supposed to go to operating room today, operating room canceled as per Dr. Schwartz. According to him, cardiac enzymes were pending, discussion done with Dr. Helio Lala. He actually saw the patient and he cleared the patient for surgery, and he called orthopedic also for cardiac clearance, but according to orthopedics, he does not have a place in operating room tomorrow and he would do surgery on Wednesday, so we have to wait for 3 days. The patient has closed fracture of the left tibial plateau, need open reduction and internal fixation. History of asthma, hypercholesterolemia, history of fall, left knee pain, has comminuted and minimally displaced proximal tibial fractures. The patient has high functional capacity. Appreciate Dr. Luis Thompson's notes, he cleared the patient cardiology-dykes for surgery. Now waiting for the surgeon. Also, repeat labs. We will follow up. Brenna Lamas MD MTDNanette
[2017-04-09] MEDS: Sodium Chloride 0.9% 1,000 ML IV SCH (18:22)
[2017-04-09] MEDS: Magnesium Hydroxide Susp 30 ml UD PO SCH (22:19)
--- NOTE | 2017-04-09 23:47 | CP.PCM.PN ---
Subjective - Date & Time of Evaluation Date of Evaluation: 04/09/17 Time of Evaluation: 23:46 - Subjective Subjective: TEMPERATURE 99.0 pAIN MUCH BETTER CONTROLLED. nO OTHER COMPLAINTS OR FOR wednesday Objective - Vital Signs/Intake and Output Vital Signs (last 24 hours): Temp Pulse Resp BP Pulse Ox 99 F 83 20 116/75 95 04/09/17 16:00 04/09/17 16:00 04/09/17 16:00 04/09/17 16:00 04/09/17 16:00 Intake and Output: 04/09/17 04/10/17 18:59 06:59 Intake Total 1060 990 Output Total 700 Balance 1060 290 - Medications Medications: Current Medications Calcium/Vitamin D (Oscal-D 250 Mg-125 Units Tab) 1 tab PO DAILY [facility] Last Admin: 04/09/17 10:02 Dose: 1 tab Docusate Sodium (Colace) 100 mg PO BID [facility] Last Admin: 04/09/17 18:16 Dose: 100 mg Enoxaparin Sodium (Lovenox) 40 mg SC DAILY [facility] Last Admin: 04/09/17 10:00 Dose: 40 mg Ergocalciferol (Drisdol 50,000 Intl Units Cap) 1 cap PO Q7D [facility] Last Admin: 04/07/17 19:41 Dose: 1 cap Fenofibrate (Tricor) 145 mg PO QPM [facility] Last Admin: 04/09/17 18:16 Dose: 145 mg Hydromorphone HCl (Dilaudid) 1 mg IVP Q4H PRN PRN Reason: Pain, Mild (1-3) Last Admin: 04/09/17 18:17 Dose: 1 mg Ceftriaxone Sodium 1 gm/ (Sodium Chloride) 100 mls @ 100 mls/hr IVPB DAILY [facility] Last Admin: 04/09/17 10:00 Dose: 100 mls/hr Sodium Chloride (Sodium Chloride 0.9%) 1,000 mls @ 80 mls/hr IV .[id number] [facility] Last Admin: 04/09/17 18:22 Dose: 80 mls/hr Vancomycin/Sodium Chloride (Vancomycin 1 Gm/Ns 200 Ml) 1 gm in 200 mls @ 166.7 mls/hr IVPB Q24H [facility] Stop: 04/12/17 07:12 Iron (Ferocon) 1 cap PO DAILY [facility] Last Admin: 04/09/17 10:01 Dose: 1 cap Magnesium Hydroxide (Milk Of Magnesia) 30 ml PO HS [facility] Last Admin: 04/09/17 22:19 Dose: Not Given Ondansetron HCl (Zofran Inj) 4 mg IVP Q6 PRN PRN Reason: Nausea/Vomiting Oxycodone/Acetaminophen (Percocet 5/325 Mg Tab) 1 tab PO Q4H PRN PRN Reason: Pain, moderate (4-7) Stop: 04/10/17 14:24 Pantoprazole Sodium (Protonix Inj) 40 mg IVP DAILY [facility] Last Admin: 04/09/17 10:01 Dose: 40 mg Senna/Docusate Sodium (Senokot S 50 Mg-8.6 Mg) 1 tab PO BID [facility] Last Admin: 04/09/17 18:17 Dose: 1 tab Thiamine HCl (Vitamin B1 Tab) 100 mg PO DAILY [facility] Last Admin: 04/09/17 14:20 Dose: 100 mg Zolpidem Tartrate (Ambien) 5 mg PO HS PRN PRN Reason: Insomnia Last Admin: 04/09/17 22:19 Dose: 5 mg - Labs Labs: 04/08/17 08:16 04/08/17 08:16 PT 12.6 SECONDS (9.7-12.2) H 04/06/17 16:52 INR 1.1 04/06/17 16:52 APTT 28 SECONDS (21-34) 04/06/17 16:52 - Constitutional Appears: No Acute Distress - Head Exam Head Exam: NORMAL INSPECTION - Eye Exam Eye Exam: EOMI, PERRL - ENT Exam ENT Exam: Normal Oropharynx (LOWER LIP WITH SOME PURULENCE+VE, SLIGHTLY SWOLLEN. ) - Neck Exam Neck Exam: Normal Inspection - Respiratory Exam Respiratory Exam: Clear to Ausculation Bilateral, NORMAL BREATHING PATTERN - Cardiovascular Exam Cardiovascular Exam: REGULAR RHYTHM, +S1, +S2 - GI/Abdominal Exam GI & Abdominal Exam: Soft, Normal Bowel Sounds - Extremities Exam Extremities Exam: absent: Calf Tenderness (LEFT LOWER EXTREMITY/KNEE IN SOFT CAST SUPPORT.) - Neurological Exam Neurological Exam: Awake, CN II-XII Intact, Oriented x3 - Psychiatric Exam Psychiatric exam: Normal Mood - Skin Skin Exam: Normal Color, Warm Assessment and Plan (1) Leukocytosis Assessment & Plan: LEUKOCYTOSIS IMPROVING. WBC 9.6. Patient's mouth stitches with some purulence noted at the site of the stitches lower lip. Continue IV Rocephin 1 g once a day daily 04/06/17. Status: Acute (2) Laceration of mouth, complicated Status: Acute (3) Closed fracture of left tibial plateau Assessment & Plan: PATIENT FOR OR IN AM. START IV VANCOMYCIN 1GM IVPB Q 24HRLY ON Wednesday AT 6.00AM RN NOTIFIED. Status: Acute (4) Intractable pain Status: Acute (5) Knee fracture, left Status: Acute
--- NOTE | 2017-04-10 01:07 | PN ---
DATE: 04/09/2017 DAILY PROGRESS NOTE SUBJECTIVE: The patient is seen today, 04/09/2017. She was admitted on 04/06/[address] Lamas. The patient was diagnosed with left tibial fracture that needs open reduction and internal fixation. The patient has been on bedrest, awaiting for the surgery. The patient has been on pain medications also and DVT prophylaxis. PHYSICAL EXAMINATION: VITAL SIGNS: Blood pressure 113/72, temperature 98.9, respiratory rate 20 and pulse 77. HEENT: Pupils equal, reactive to light. Normal-appearing mucosa of the conjunctivae, oropharyngeal and nasal membrane mucosa. NECK: Supple. No JVD. No carotid bruit. No lymph nodes. No thyromegaly. CHEST AND LUNGS: Bilateral symmetrical expansion. Good air exchange. No rales, no rhonchi. CARDIOVASCULAR SYSTEM: PMI not localized. S1, S2. No additional sounds. ABDOMEN: Normoactive bowel sounds. No tenderness or organomegaly. No masses. EXTREMITIES: No cyanosis, no clubbing, no edema. CENTRAL NERVOUS SYSTEM: Alert, awake, oriented x3. No neurological deficit could be appreciated. ASSESSMENT: 1. Status post fall with fracture of the left tibia. 2. History of hypertriglyceridemia. 3. History of alcohol abuse. 4. Vitamin D deficiency. PLAN: Continue current medications and management and the patient is cleared for surgery by Cardiology. Nola Rodriguez MD
[2017-04-10] MEDS: HYDROmorphone 1 mg/ml ISec IVP PRN ×3 (08:40→21:39)
[2017-04-10] MEDS: Calcium-Vit D 250 mg-125 Units Tab UD PO SCH (09:28)
[2017-04-10] MEDS: Docusate-Senna 50 mg-8.6 mg Tab PO SCH ×2 (09:29→17:54)
[2017-04-10] MEDS: Ferrous Fum/Folic Acid/IF/VI 1 Cap PO SCH (09:30)
[2017-04-10] MEDS: Enoxaparin 40 mg Syringe SC SCH (11:11)
--- NOTE | 2017-04-10 19:54 | CP.PCM.PN ---
Subjective - Date & Time of Evaluation Date of Evaluation: 04/10/17 Time of Evaluation: 19:54 - Subjective Subjective: AFEBRILE. cOMPLAINS OF PAIN LEFT KNEE. WANTS A SLEEPING PILL Objective - Vital Signs/Intake and Output Vital Signs (last 24 hours): Temp Pulse Resp BP Pulse Ox 98.6 F 84 20 115/78 96 04/10/17 16:00 04/10/17 16:00 04/10/17 16:00 04/10/17 16:00 04/10/17 16:00 Intake and Output: 04/10/17 04/11/17 18:59 06:59 Intake Total 1040 Output Total 50563 Balance -18201 - Medications Medications: Current Medications Calcium/Vitamin D (Oscal-D 250 Mg-125 Units Tab) 1 tab PO DAILY [facility] Last Admin: 04/10/17 09:28 Dose: 1 tab Docusate Sodium (Colace) 100 mg PO BID [facility] Last Admin: 04/10/17 17:50 Dose: 100 mg Enoxaparin Sodium (Lovenox) 40 mg SC DAILY [facility] Last Admin: 04/10/17 11:11 Dose: 40 mg Ergocalciferol (Drisdol 50,000 Intl Units Cap) 1 cap PO Q7D [facility] Last Admin: 04/07/17 19:41 Dose: 1 cap Fenofibrate (Tricor) 145 mg PO QPM [facility] Last Admin: 04/10/17 17:53 Dose: 145 mg Hydromorphone HCl (Dilaudid) 1 mg IVP Q4H PRN PRN Reason: Pain, Mild (1-3) Last Admin: 04/10/17 16:26 Dose: 1 mg Ceftriaxone Sodium 1 gm/ (Sodium Chloride) 100 mls @ 100 mls/hr IVPB DAILY [facility] Last Admin: 04/10/17 09:31 Dose: 100 mls/hr Vancomycin/Sodium Chloride (Vancomycin 1 Gm/Ns 200 Ml) 1 gm in 200 mls @ 166.7 mls/hr IVPB Q24H [facility] Stop: 04/12/17 07:12 Iron (Ferocon) 1 cap PO DAILY [facility] Last Admin: 04/10/17 09:30 Dose: 1 cap Magnesium Hydroxide (Milk Of Magnesia) 30 ml PO HS [facility] Last Admin: 04/09/17 22:19 Dose: Not Given Ondansetron HCl (Zofran Inj) 4 mg IVP Q6 PRN PRN Reason: Nausea/Vomiting Pantoprazole Sodium (Protonix Inj) 40 mg IVP DAILY [facility] Last Admin: 04/10/17 09:28 Dose: 40 mg Senna/Docusate Sodium (Senokot S 50 Mg-8.6 Mg) 1 tab PO BID [facility] Last Admin: 04/10/17 17:54 Dose: 1 tab Thiamine HCl (Vitamin B1 Tab) 100 mg PO DAILY [facility] Last Admin: 04/10/17 09:28 Dose: 100 mg Zolpidem Tartrate (Ambien) 5 mg PO HS PRN PRN Reason: Insomnia Last Admin: 04/09/17 22:19 Dose: 5 mg - Labs Labs: 04/08/17 08:16 04/08/17 08:16 PT 12.6 SECONDS (9.7-12.2) H 04/06/17 16:52 INR 1.1 04/06/17 16:52 APTT 28 SECONDS (21-34) 04/06/17 16:52 - Constitutional Appears: No Acute Distress - Head Exam Head Exam: NORMAL INSPECTION - Eye Exam Eye Exam: EOMI, PERRL - ENT Exam ENT Exam: Normal Oropharynx - Neck Exam Neck Exam: Normal Inspection - Respiratory Exam Respiratory Exam: Clear to Ausculation Bilateral - Cardiovascular Exam Cardiovascular Exam: REGULAR RHYTHM, +S1, +S2 - GI/Abdominal Exam GI & Abdominal Exam: Soft, Normal Bowel Sounds - Extremities Exam Extremities Exam: absent: Calf Tenderness, Pedal Edema (LEFT LE /KNEE IN SOFT SUPPORT CAST) - Neurological Exam Neurological Exam: Awake, CN II-XII Intact, Oriented x3 - Skin Skin Exam: Normal Color, Warm Assessment and Plan (1) Leukocytosis Status: Acute (2) Laceration of mouth, complicated Assessment & Plan: LEUKOCYTOSIS IMPROVING. WBC 9.6. Patient's mouth stitches with some purulence noted at the site of the stitches lower lip. Continue IV Rocephin 1 g once a day daily 04/06/17. Status: Acute (3) Closed fracture of left tibial plateau Assessment & Plan: START IV VANCOMYCIN 1GM IVPB Q 24HRLY ON Wednesday, WEDNESDAY AT 6.00AM RN NOTIFIED. PT FOR OR WEDNESDAY PER ORTHO. Status: Acute (4) Intractable pain Status: Acute (5) Knee fracture, left Status: Acute
[2017-04-10] MEDS: Magnesium Hydroxide Susp 30 ml UD PO SCH (21:34)
[2017-04-11] MEDS: HYDROmorphone 1 mg/ml ISec IVP PRN ×5 (03:07→19:59)
[2017-04-11] MEDS: Enoxaparin 40 mg Syringe SC SCH (11:16)
[2017-04-11] MEDS: Calcium-Vit D 250 mg-125 Units Tab UD PO SCH (11:21)
[2017-04-11] MEDS: Ferrous Fum/Folic Acid/IF/VI 1 Cap PO SCH (11:21)
[2017-04-11] MEDS: Docusate-Senna 50 mg-8.6 mg Tab PO SCH ×2 (11:22→18:12)
[2017-04-11] MEDS: Pantoprazole 40 mg EC Tab PO SCH (12:02)
--- NOTE | 2017-04-11 21:06 | PN ---
DATE: 04/10/2017 DAILY PROGRESS NOTE SUBJECTIVE: The patient was seen on 04/10/2017. She was not in any cardiopulmonary distress. The patient was on DVT prophylaxis. PHYSICAL EXAMINATION: VITAL SIGNS: Blood pressure 114/75, temperature 97.3, respiratory rate 20 and pulse 80. HEENT: Pupils equal, reactive to light. Normal-appearing mucosa of the conjunctivae, oropharyngeal and nasal membrane mucosa. NECK: Supple. No JVD. No carotid bruit. No lymph node. No thyromegaly. CHEST AND LUNGS: Bilateral symmetrical expansion. Good air exchange. No rales. No rhonchi. CARDIOVASCULAR SYSTEM: PMI not localized. S1 and S2. No additional sounds. ABDOMEN: Normoactive bowel sounds. No tenderness. No organomegaly. No masses. EXTREMITIES: No cyanosis. No clubbing. No edema. CENTRAL NERVOUS SYSTEM: Alert, awake, oriented x3. No neurological deficit could be appreciated. ASSESSMENT: 1. Status post fall with tibial fracture. 2. History of hypertriglyceridemia. 3. Status post leukocytosis, currently on intravenous antibiotics. PLAN: Follow orthopedic wireless consultant's recommendations and the patient is scheduled for surgery on 04/12/2017. We will hold the DVT prophylaxis on 04/11/2017 in preparation for the surgery on 04/12/2017. Nola Rodriguez MD
--- NOTE | 2017-04-11 21:24 | CARD ---
APPROVED REPORT EXAM: Two-dimensional and M-mode echocardiogram with Doppler and color Doppler. Other Information Quality : GoodRhythm : INDICATION Pre-Op RISK FACTORS Hyperlipidemia 2D DIMENSIONS IVSd0.9 (0.7-1.1cm)LVDd4.2 (3.9-5.9cm) PWd1.0 (0.7-1.1cm)LVDs2.7 (2.5-4.0cm) FS (%) 35.2 %LVEF (%)65.0 (>50%) M-Mode DIMENSIONS Left Atrium (MM)3.23 (2.5-4.0cm)Aortic Root3.51 (2.2-3.7cm) Aortic Cusp Exc.2.18 (1.5-2.0cm) Mitral Valve MV E Uqdcvgea06.2cm/sMV A Mjcwenri95.5cm/sE/A ratio1.2 TDI E/Lateral E'0.0E/Medial E'0.0 Tricuspid Valve TR Peak Ibisbecv119lk/sTR Peak Gr.[id number] <Conclusion> Left ventricle: thickness: normal; size: normal; overall ejection fraction: 65%: diastolic filling pressures: normal Mitral valve: annulus: normal: leaflets: normal: excursion: normal; no significant trans-mitral gradient: mild incompetence: left atrium: normal Aortic valve: leaflets: normal: excursion: normal; no significant trans-aortic gradient: No significant incompetence: aortic root: normal Right sided Structures: Pulmonary valve: normal; no significant incompetence; Tricuspid valve: normal; no significant incompetence: Intra-cardiac hemodynamics: pulmonary systolic pressures: normal; central venous pressures: normal No pericardial effusion
[2017-04-11] MEDS: Magnesium Hydroxide Susp 30 ml UD PO SCH (21:38)
[2017-04-11 21:46] LABS: INR 1.2
[2017-04-12] MEDS: HYDROmorphone 1 mg/ml ISec IVP PRN ×2 (03:00→07:00)
[2017-04-12] MEDS ORDERED: Vancomycin 1 gm/NS 200 ml 1 GM/200 ML BAG IVPB SCH (06:00)
[2017-04-12 07:35] LABS: HEMATOCRIT 39.8 % (34.0-47.0); MEAN CELL VOLUME 85.5 fL (81.0-99.0); MEAN CORPUSCULAR HEMOGLOBIN 29.1 pg (27.0-31.0); MEAN PLATELET VOLUME 8.3 fL (7.2-11.7); RED CELL DISTRIBUTION WIDTH 13.3 % (11.5-14.5); WHITE BLOOD COUNT 9.1 K/uL (4.8-10.8)
[2017-04-12 08:08] LABS: BLOOD UREA NITROGEN 13 mg/dL (7-17); CALCIUM 8.9 mg/dl (8.6-10.4); CARBON DIOXIDE 34 mmol/L (22-30); CHLORIDE 99 mmol/L (98-107); GFR AFRICAN-AMERICAN > 60; GLUCOSE,RANDOM 103 mg/dL (65-105); POTASSIUM 4.2 mmol/L (3.6-5.2); SODIUM 140 mmol/L (132-148)
[2017-04-12] MEDS: Calcium-Vit D 250 mg-125 Units Tab UD PO SCH (09:41)
[2017-04-12] MEDS: Ferrous Fum/Folic Acid/IF/VI 1 Cap PO SCH (09:41)
[2017-04-12] MEDS: Pantoprazole 40 mg EC Tab PO SCH (09:41)
[2017-04-12] MEDS: Docusate-Senna 50 mg-8.6 mg Tab PO SCH ×2 (09:42→17:01)
[2017-04-12] MEDS ORDERED: Bupivacaine HCl 0.5% PF (10 ml) Inj ONE (10:30)
[2017-04-12] MEDS ORDERED: Bupivacaine 0.5%/Epi 1:200,000 (10 ML SOL) ONE ×3 (10:30)
[2017-04-12] MEDS ORDERED: ceFAZolin IV 2 gm in Dextrose 0 GM/0 ML BAG IVPB ONE (10:40)
[2017-04-12] MEDS ORDERED: Bacitracin Ointment 30 GM TUBE ONE (10:40)
[2017-04-12] MEDS ORDERED: EPINEPHrine 1:1000 Nasal Sol(30mL) ONE (10:53)
[2017-04-12] MEDS ORDERED: Lactated Ringer's 1,000 ML IV ONE (11:39)
[2017-04-12] MEDS ORDERED: Propofol 10 mg/ml Inj (20 ML) ONE (11:42)
[2017-04-12] MEDS ORDERED: Lidocaine Hydrochloride 5 ML INJ ONE (11:42)
[2017-04-12] MEDS ORDERED: Midazolam 2 MG/2 ML VIAL ONE (11:42)
[2017-04-12] MEDS ORDERED: Succinylcholine Chloride 20 mg/ml Syr (5 ml) IV ONE (11:42)
[2017-04-12] MEDS ORDERED: Rocuronium 10 mg/ml (10 ml) ONE (11:42)
[2017-04-12] MEDS ORDERED: Bacitracin 50,000 UNIT in Sodium Chloride 0.9% Irrig 1,000 ML IR SCH (12:15)
[2017-04-12] MEDS ORDERED: Neostigmine Methylsulfate 3mg/3ml Syringe IV ONE (13:13)
[2017-04-12] MEDS ORDERED: Sodium Bicarbonate (8.4%) 50 Meq Syringe ONE (13:38)
--- NOTE | 2017-04-12 13:45 | PCM.SURG1 ---
Surgeon's Initial Post Op Note - Surgeon's Notes Surgeon: Lana Etl Consultant: Javi Lopes PA-C/ 2nd assist ALANNAH Carballo Type of Anesthesia: General Endo Anesthesia Administered By: DR Kaba Pre-Operative Diagnosis: Displaced tibial plateau fx Operative Findings: - as above Post-Operative Diagnosis: as above Operation Performed: ORIF displaced tibial plateau fx. ORIF tibial shaft fx. primary repair lateral meniscal sepatation. surg arthroscopy partial medial meniscectromy. surg arthroscopy partial tricompartmental synovectomy. positioning of fluoro/interpretation of video images Specimen/Specimens Removed: fx callous/ synovium/ Estimated Blood Loss: EBL {In ML}: 85 Blood Products Given: N/A Drains Used: No Drains Post-Op Condition: Good Date of Surgery/Procedure: 04/12/17 Time of Surgery/Procedure: 12:30 (time inm room/anaesthesia indcution time11:39 / finish 13:45)
[2017-04-12] MEDS ORDERED: HYDROmorphone 1 mg/ml ISec ONE (13:59)
[2017-04-12] MEDS ORDERED: HYDROmorphone 1 mg/ml ISec IVP STA (14:19)
[2017-04-12] MEDS ORDERED: HYDROmorphone 0.5 mg/0.5 ml ISec IVP PRN (14:20)
--- NOTE | 2017-04-12 14:28 | PCM.ANESB2 ---
Popliteal Nerve Block - Popliteal Nerve Block Date of Procedure: 04/12/17 Anesthesiologist: Sharron Pre-Procedure Diagnosis: ORIF left tibial plateau fracture Post-Procedure Diagnosis: Same Procedure Performed: Popliteal Nerve Block Left - Procedure Popliteal Nerve Block: This procedure was explained to the patient that it is for post-operative pain management. Consent was obtained after a thorough discussion with the patient regarding the benefits and possible complications of local anesthetic block of the sciatic nerve at the popliteal level. At the conclusion of the procedure, at the request of Dr Schwartz, in [facility]. Time-out was held with the circulating nurse to confirm the correct surgery and the appropriate block. After applying oxygen by nasal cannula and administering IV Sedation, patient's operative leg was gently raised and supported and the groove in between the biceps femoris and vastus lateralis muscles was carefully palpated. The skin approximately 8cm above the popliteal crease was then marked. The ultrasound transducer was then applied to the posterior thigh approximately 8cm above the popliteal crease in the transverse plane and the sciatic nerve before its division was visualized lateral to the popliteal artery and in between the bicep femoris and semimembranosus/semitendinosus muscles. After identification, the lateral portion of the thigh was prepped with Chloraprep and Lidocaine 1% was injected subcutaneously for topical anesthesia. At this point, a # 21 gauge Stimuplex insulated 4 inch needle was inserted into pre-marked area and advanced in a perpendicular direction. The needle was inserted above the ultrasound transducer in-plane towards the sciatic nerve in a [id number] direction. Needle advancement was performed carefully under direct ultrasound visualization. Nerve stimulator was used and dorsiflexion of the __left___ foot was elicited at a current of __0.4___ MA. After repeated negative aspiration, ___2__cc of __1___ % ___Lidocaine with bicarb was injected and this was flowed with _8 cc of __1____% _lidocaine with bicarb and 25 cc 0.25% bupivicaine with 1:200,000 epinepherine . Under ultrasound guidance the local anesthetics were observed surrounding sciatic nerve . The patient reported no pain or paresthesia on injection The needle was removed intact . The patient tolerated the popliteal nerve block well with stable vital signs and reported resolution of her pain 10 minutes after injection.
[2017-04-12] MEDS ORDERED: Lactated Ringer's 500 ML IV SCH (14:30)
[2017-04-12] MEDS: Sodium Chloride 0.9% 1,000 ML IV SCH (16:25)
--- NOTE | 2017-04-12 16:37 | RAD ---
Left knee two views History: Status post tibial plateau fracture repair with open reduction internal fixation. Comparison: None available. Findings: Overlying surgical dottie. Side plate with multiple screw fixation of a tibial plateau fracture. Transverse oblique lucency extends from the level of the lateral proximal tibial plateau near the tibial spines extending in a transverse medial oblique orientation to the medial cortex at the level of the proximal medullary cavity. 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 Air and fluid noted within the suprapatellar joint space. Impression: Postsurgical changes.
--- NOTE | 2017-04-12 16:41 | RAD ---
Left tibia and fibula three views History: Status post tibial plateau fracture repair with open reduction internal fixation. Comparison: None available. Findings: Overlying surgical dottie. Side plate with multiple screw fixation of a tibial plateau fracture. Transverse oblique lucency extends from the level of the lateral proximal tibial plateau near the tibial spines extending in a transverse medial oblique orientation to the medial cortex at the level of the proximal medullary cavity. 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 Avulsion injury not excluded. Clinical correlation. Air and fluid noted within the suprapatellar joint space. Impression: Postsurgical changes.
[2017-04-12 16:46] VITALS: RESP 20
--- NOTE | 2017-04-12 16:46 | RAD ---
PROCEDURE: Intraoperative Fluoroscopy. HISTORY: TIBIAL PLATEAU fracture. FINDINGS: Fluoroscopic assistance was provided for tibial plateau fracture repair. Please refer to the operative report from
[2017-04-12] MEDS: Oxycodone/Acetaminophen 5/325 mg Tab PO PRN ×2 (16:59→23:51)
[2017-04-12] MEDS: ceFAZolin IV 1 gm in Dextrose 1 GM/50 ML BAG IVPB SCH (18:41)
[2017-04-12] MEDS: Magnesium Hydroxide Susp 30 ml UD PO SCH ×2 (21:04→21:12)
--- NOTE | 2017-04-12 22:12 | CP.PCM.PN ---
Subjective - Date & Time of Evaluation Date of Evaluation: 04/12/17 Time of Evaluation: 22:12 - Subjective Subjective: S/P OR TODAY PROCEDURE NOTED BELOW; ORIF LT displaced tibial plateau fx. ORIF tibial shaft fx. primary repair lateral meniscal sepatation. surg arthroscopy partial medial meniscectromy. surg arthroscopy partial tricompartmental synovectomy. AWAKE . C/O POST OPTIVE PAIN. Objective - Vital Signs/Intake and Output Vital Signs (last 24 hours): Temp Pulse Resp BP Pulse Ox 98.3 F 86 20 121/81 93 L 04/12/17 16:30 04/12/17 16:30 04/12/17 16:30 04/12/17 16:30 04/12/17 16:30 Intake and Output: 04/12/17 04/13/17 18:59 06:59 Intake Total 520 480 Output Total 180 Balance 340 480 - Medications Medications: Current Medications Calcium/Vitamin D (Oscal-D 250 Mg-125 Units Tab) 1 tab PO DAILY [facility] Last Admin: 04/12/17 09:41 Dose: 1 tab Docusate Sodium (Colace) 100 mg PO BID [facility] Last Admin: 04/12/17 17:01 Dose: 100 mg Enoxaparin Sodium (Lovenox) 40 mg SC DAILY [facility] Last Admin: 04/11/17 11:16 Dose: 40 mg Ergocalciferol (Drisdol 50,000 Intl Units Cap) 1 cap PO Q7D [facility] Last Admin: 04/07/17 19:41 Dose: 1 cap Fenofibrate (Tricor) 145 mg PO QPM [facility] Last Admin: 04/12/17 18:40 Dose: 145 mg Cefazolin Sodium/Dextrose (Ancef Iv 1 Gm Duplex) 1 gm in 50 mls @ 100 mls/hr IVPB Q8H [facility] Stop: 04/13/17 03:44 Last Admin: 04/12/17 18:41 Dose: 100 mls/hr Sodium Chloride (Sodium Chloride 0.9%) 1,000 mls @ 80 mls/hr IV .[id number] [facility] Last Admin: 04/12/17 16:25 Dose: 80 mls/hr Lactated Ringer's (Lactated Ringer's 500ml) 500 mls @ 75 mls/hr IV .[id number] [facility] Iron (Ferocon) 1 cap PO DAILY [facility] Last Admin: 04/12/17 09:41 Dose: 1 cap Magnesium Hydroxide (Milk Of Magnesia) 30 ml PO HS [facility] Last Admin: 04/12/17 21:12 Dose: Not Given Morphine Sulfate (Morphine) 2 mg IVP Q4H PRN PRN Reason: Pain, severe (8-10) Last Admin: 04/12/17 21:04 Dose: 2 mg Ondansetron HCl (Zofran Inj) 4 mg IVP Q6 PRN PRN Reason: Nausea/Vomiting Oxycodone/Acetaminophen (Percocet 5/325 Mg Tab) 2 tab PO Q4H PRN PRN Reason: Pain, moderate (4-7) Stop: 04/15/17 14:13 Last Admin: 04/12/17 16:59 Dose: 2 tab Pantoprazole Sodium (Protonix Ec Tab) 40 mg PO DAILY [facility] Last Admin: 04/12/17 09:41 Dose: 40 mg Senna/Docusate Sodium (Senokot S 50 Mg-8.6 Mg) 1 tab PO BID [facility] Last Admin: 04/12/17 17:01 Dose: 1 tab Thiamine HCl (Vitamin B1 Tab) 100 mg PO DAILY [facility] Last Admin: 04/12/17 09:41 Dose: 100 mg Zolpidem Tartrate (Ambien) 5 mg PO HS PRN PRN Reason: Insomnia Last Admin: 04/11/17 21:38 Dose: 5 mg - Labs Labs: 04/12/17 07:14 04/12/17 07:14 PT 12.9 SECONDS (9.7-12.2) H 04/11/17 21:30 INR 1.2 04/11/17 21:30 APTT 30 SECONDS (21-34) 04/11/17 21:30 - Constitutional Appears: No Acute Distress - Head Exam Head Exam: NORMAL INSPECTION - Eye Exam Eye Exam: EOMI, PERRL - ENT Exam ENT Exam: Normal Oropharynx - Neck Exam Neck Exam: Normal Inspection - Respiratory Exam Respiratory Exam: Clear to Ausculation Bilateral - Cardiovascular Exam Cardiovascular Exam: REGULAR RHYTHM, +S1, +S2 - GI/Abdominal Exam GI & Abdominal Exam: Soft, Normal Bowel Sounds - Extremities Exam Extremities Exam: absent: Calf Tenderness, Pedal Edema (LT LE IN BANDAGE/CAST) - Neurological Exam Neurological Exam: Awake - Psychiatric Exam Psychiatric exam: Normal Mood - Skin Skin Exam: Dry, Normal Color, Warm Assessment and Plan (1) Leukocytosis Assessment & Plan: IMPROVING. wbc 9.1, H/H 13.5/39.8 PERIODS PATIENT ON CEFAZOLIN 1 G EVERY 8 HOURLY X2 DOSES. wILL FOLLOW cbc WITH DIFFERENTIAL . Status: Acute (2) Laceration of mouth, complicated Assessment & Plan: IMPROVING. Status: Acute (3) Closed fracture of left tibial plateau Assessment & Plan: POSTOPERATIVE DAY 04/12/17. Status: Acute (4) Intractable pain Assessment & Plan: ANALGESICS PER ORTHO. Status: Acute (5) Knee fracture, left Status: Acute
--- NOTE | 2017-04-12 22:38 | PN ---
DATE: 04/12/2017 DAILY PROGRESS NOTE SUBJECTIVE: The patient is seen today, 04/12/2017. The patient was going for open reduction and internal fixation of the left tibial fracture. PHYSICAL EXAMINATION: VITAL SIGNS: Blood pressure 104/66, temperature 98.6, respiratory rate 20 and pulse 60. HEENT: Pupils equal, reactive to light. Normal-appearing mucosa of the conjunctivae, oropharyngeal and nasal membrane mucosa. NECK: Supple. No JVD. No carotid bruit. No lymph node. No thyromegaly. CHEST AND LUNGS: Bilateral symmetrical expansion. Good air exchange. No rales, no rhonchi. CARDIOVASCULAR SYSTEM: PMI not localized. S1, S2. No additional sounds. ABDOMEN: Normoactive bowel sounds. No tenderness. No organomegaly. No masses. EXTREMITIES: No cyanosis, no clubbing, no edema. CENTRAL NERVOUS SYSTEM: Alert, awake, oriented x2. No neurological deficit could be appreciated. ASSESSMENT: Status post fall with left tibial fracture. PLAN: The patient is for open reduction and internal fixation. We will resume physical therapy as per orthopedic consult and plan to discharge to subacute rehabilitation. Nola Rodriguez MD
[2017-04-13] MEDS: Sodium Chloride 0.9% 1,000 ML IV SCH ×3 (06:10→18:15)
[2017-04-13] MEDS: ceFAZolin IV 1 gm in Dextrose 1 GM/50 ML BAG IVPB SCH (06:20)
[2017-04-13 06:33] LABS: HEMATOCRIT 36.8 % (34.0-47.0); MEAN CELL VOLUME 84.6 fL (81.0-99.0); MEAN CORPUSCULAR HEMOGLOBIN 28.2 pg (27.0-31.0); MEAN CORPUSCULAR HGB CONC 33.3 g/dL (33.0-37.0); MEAN PLATELET VOLUME 8.1 fL (7.2-11.7); RED CELL DISTRIBUTION WIDTH 12.9 % (11.5-14.5); WHITE BLOOD COUNT 12.7 K/uL (4.8-10.8)
[2017-04-13 06:48] LABS: BLOOD UREA NITROGEN 11 mg/dL (7-17); CALCIUM 8.6 mg/dl (8.6-10.4); CARBON DIOXIDE 30 mmol/L (22-30); CHLORIDE 103 mmol/L (98-107); GFR AFRICAN-AMERICAN > 60; GLUCOSE,RANDOM 103 mg/dL (65-105); SODIUM 140 mmol/L (132-148)
--- NOTE | 2017-04-13 07:45 | CP.PCM.PN ---
Subjective - Date & Time of Evaluation Date of Evaluation: 04/13/17 Time of Evaluation: 07:45 - Subjective Subjective: Patient states she has pain in her knee, but only a little right now. Denies CP/ SOB/dizziness. Objective - Vital Signs/Intake and Output Vital Signs (last 24 hours): Temp Pulse Resp BP Pulse Ox 98.2 F 76 20 116/73 95 04/12/17 23:30 04/12/17 23:30 04/12/17 23:30 04/12/17 23:30 04/12/17 23:30 Intake and Output: 04/13/17 04/13/17 06:59 18:59 Intake Total 480 Balance 480 - Medications Medications: Current Medications Calcium/Vitamin D (Oscal-D 250 Mg-125 Units Tab) 1 tab PO DAILY [facility] Last Admin: 04/12/17 09:41 Dose: 1 tab Docusate Sodium (Colace) 100 mg PO BID [facility] Last Admin: 04/12/17 17:01 Dose: 100 mg Enoxaparin Sodium (Lovenox) 40 mg SC DAILY [facility] Last Admin: 04/11/17 11:16 Dose: 40 mg Ergocalciferol (Drisdol 50,000 Intl Units Cap) 1 cap PO Q7D [facility] Last Admin: 04/07/17 19:41 Dose: 1 cap Fenofibrate (Tricor) 145 mg PO QPM [facility] Last Admin: 04/12/17 18:40 Dose: 145 mg Sodium Chloride (Sodium Chloride 0.9%) 1,000 mls @ 80 mls/hr IV .[id number] [facility] Last Admin: 04/13/17 06:10 Dose: 80 mls/hr Lactated Ringer's (Lactated Ringer's 500ml) 500 mls @ 75 mls/hr IV .[id number] [facility] Iron (Ferocon) 1 cap PO DAILY [facility] Last Admin: 04/12/17 09:41 Dose: 1 cap Magnesium Hydroxide (Milk Of Magnesia) 30 ml PO HS [facility] Last Admin: 04/12/17 21:12 Dose: Not Given Morphine Sulfate (Morphine) 2 mg IVP Q4H PRN PRN Reason: Pain, severe (8-10) Last Admin: 04/13/17 05:59 Dose: 2 mg Ondansetron HCl (Zofran Inj) 4 mg IVP Q6 PRN PRN Reason: Nausea/Vomiting Oxycodone/Acetaminophen (Percocet 5/325 Mg Tab) 2 tab PO Q4H PRN PRN Reason: Pain, moderate (4-7) Stop: 04/15/17 14:13 Last Admin: 04/12/17 23:51 Dose: 2 tab Pantoprazole Sodium (Protonix Ec Tab) 40 mg PO DAILY [facility] Last Admin: 04/12/17 09:41 Dose: 40 mg Senna/Docusate Sodium (Senokot S 50 Mg-8.6 Mg) 1 tab PO BID [facility] Last Admin: 04/12/17 17:01 Dose: 1 tab Thiamine HCl (Vitamin B1 Tab) 100 mg PO DAILY [facility] Last Admin: 04/12/17 09:41 Dose: 100 mg Zolpidem Tartrate (Ambien) 5 mg PO HS PRN PRN Reason: Insomnia Last Admin: 04/11/17 21:38 Dose: 5 mg - Labs Labs: 04/13/17 06:18 04/13/17 06:18 PT 12.9 SECONDS (9.7-12.2) H 04/11/17 21:30 INR 1.2 04/11/17 21:30 APTT 30 SECONDS (21-34) 04/11/17 21:30 - Extremities Exam Additional comments: LLE: compartments soft. +ROM ankle/toes without pain, sensation intact, +DP pulse calves soft NT neg homans, knee immob intact Assessment and Plan (1) Closed fracture of left tibial plateau Assessment & Plan: POD#1 s/p left tibial plateau fx -f/u labs -PT/OT NWB -VTE proph -d/c planning -d/w Dr. Schwartz, agrees with above Status: Acute
[2017-04-13] MEDS: Oxycodone/Acetaminophen 5/325 mg Tab PO PRN ×2 (08:43→16:55)
[2017-04-13] MEDS: Pantoprazole 40 mg EC Tab PO SCH (09:26)
[2017-04-13] MEDS: Docusate-Senna 50 mg-8.6 mg Tab PO SCH ×2 (09:26→17:28)
[2017-04-13] MEDS: Calcium-Vit D 250 mg-125 Units Tab UD PO SCH (09:26)
[2017-04-13] MEDS: Ferrous Fum/Folic Acid/IF/VI 1 Cap PO SCH (09:26)
[2017-04-13] MEDS: Enoxaparin 40 mg Syringe SC SCH (10:34)
[2017-04-13] MEDS ORDERED: HYDROmorphone 1 mg/ml ISec IVP SCH (18:00)
[2017-04-13] MEDS: HYDROmorphone 1 mg/ml ISec IVP PRN ×2 (18:10→22:39)
[2017-04-13] MEDS: Magnesium Hydroxide Susp 30 ml UD PO SCH (21:22)
--- NOTE | 2017-04-13 22:10 | CP.PCM.PN ---
Subjective - Date & Time of Evaluation Date of Evaluation: 04/13/17 Time of Evaluation: 22:10 - Subjective Subjective: postoperative day #1. Afebrile, c/o pain left knee. off Ancef x 3 doses. Objective - Vital Signs/Intake and Output Vital Signs (last 24 hours): Temp Pulse Resp BP Pulse Ox 98.4 F 83 20 101/63 95 04/13/17 08:00 04/13/17 08:29 04/13/17 08:00 04/13/17 08:29 04/13/17 08:00 Intake and Output: 04/13/17 04/14/17 18:59 06:59 Intake Total 1000 Balance 1000 - Medications Medications: Current Medications Calcium/Vitamin D (Oscal-D 250 Mg-125 Units Tab) 1 tab PO DAILY [facility] Last Admin: 04/13/17 09:26 Dose: 1 tab Docusate Sodium (Colace) 100 mg PO BID [facility] Last Admin: 04/13/17 17:28 Dose: 100 mg Enoxaparin Sodium (Lovenox) 40 mg SC DAILY [facility] Last Admin: 04/13/17 10:34 Dose: 40 mg Ergocalciferol (Drisdol 50,000 Intl Units Cap) 1 cap PO Q7D [facility] Last Admin: 04/07/17 19:41 Dose: 1 cap Fenofibrate (Tricor) 145 mg PO QPM [facility] Last Admin: 04/13/17 17:29 Dose: 145 mg Hydromorphone HCl (Dilaudid) 1 mg IVP Q4 PRN PRN Reason: Pain, severe (8-10) Last Admin: 04/13/17 18:10 Dose: 1 mg Sodium Chloride (Sodium Chloride 0.9%) 1,000 mls @ 80 mls/hr IV .[id number] [facility] Last Admin: 04/13/17 18:15 Dose: 80 mls/hr Iron (Ferocon) 1 cap PO DAILY [facility] Last Admin: 04/13/17 09:26 Dose: 1 cap Magnesium Hydroxide (Milk Of Magnesia) 30 ml PO HS [facility] Last Admin: 04/13/17 21:22 Dose: Not Given Ondansetron HCl (Zofran Inj) 4 mg IVP Q6 PRN PRN Reason: Nausea/Vomiting Oxycodone/Acetaminophen (Percocet 5/325 Mg Tab) 2 tab PO Q4H PRN PRN Reason: Pain, moderate (4-7) Stop: 04/15/17 14:13 Last Admin: 04/13/17 16:55 Dose: 2 tab Pantoprazole Sodium (Protonix Ec Tab) 40 mg PO DAILY [facility] Last Admin: 04/13/17 09:26 Dose: 40 mg Senna/Docusate Sodium (Senokot S 50 Mg-8.6 Mg) 1 tab PO BID [facility] Last Admin: 04/13/17 17:28 Dose: 1 tab Thiamine HCl (Vitamin B1 Tab) 100 mg PO DAILY [facility] Last Admin: 04/13/17 09:26 Dose: 100 mg Zolpidem Tartrate (Ambien) 5 mg PO HS PRN PRN Reason: Insomnia Last Admin: 04/13/17 21:21 Dose: 5 mg - Labs Labs: 04/13/17 06:18 04/13/17 06:18 PT 12.9 SECONDS (9.7-12.2) H 04/11/17 21:30 INR 1.2 04/11/17 21:30 APTT 30 SECONDS (21-34) 04/11/17 21:30 - Constitutional Appears: No Acute Distress - Head Exam Head Exam: NORMAL INSPECTION - Eye Exam Eye Exam: EOMI, PERRL - ENT Exam ENT Exam: Normal Oropharynx - Neck Exam Neck Exam: Normal Inspection - Respiratory Exam Respiratory Exam: Clear to Ausculation Bilateral - Cardiovascular Exam Cardiovascular Exam: REGULAR RHYTHM, +S1, +S2 - GI/Abdominal Exam GI & Abdominal Exam: Soft, Normal Bowel Sounds - Extremities Exam Extremities Exam: Pedal Edema (left foot). absent: Calf Tenderness - Psychiatric Exam Psychiatric exam: Normal Mood - Skin Skin Exam: Normal Color, Warm Assessment and Plan (1) Leukocytosis Status: Acute (2) Laceration of mouth, complicated Status: Acute (3) Closed fracture of left tibial plateau Assessment & Plan: postoperative day # 1. off iv ancef. continue to observe Status: Acute (4) Intractable pain Status: Acute (5) Knee fracture, left Status: Acute
--- NOTE | 2017-04-13 22:57 | PN ---
DATE: 04/13/2017 DAILY PROGRESS NOTE SUBJECTIVE: The patient is seen today, 04/13/2017. She is not in any cardiopulmonary distress. She is postoperative day #1. PHYSICAL EXAMINATION: VITAL SIGNS: Blood pressure is 94/61, temperature 98.4, respiratory rate 20 and pulse 77. HEENT: Pupils equal, reactive to light. Normal-appearing mucosa of the conjunctivae, oropharyngeal and nasal membrane mucosa. NECK: Supple. No JVD. No carotid bruit. No lymph node. No thyromegaly. CHEST AND LUNGS: Bilateral symmetrical expansion. Good air exchange. No rales, no rhonchi. CARDIOVASCULAR SYSTEM: PMI not localized. S1, S2. ABDOMEN: Normoactive bowel sounds. No tenderness. No organomegaly. No masses. EXTREMITIES: No cyanosis. No clubbing. No edema. CENTRAL NERVOUS SYSTEM: Alert, awake, oriented x2. No neurological deficit could be appreciated. ASSESSMENT: Postoperative day #1 status post open reduction and internal fixation for left tibial fracture, hypertriglyceridemia, history of alcohol abuse, status post fall. PLAN: DVT prophylaxis, pain management. Monitor hemoglobin and electrolytes and follow orthopedic recommendations regarding weightbearing and physical therapy. Nola Rodriguez MD
[2017-04-14] MEDS: HYDROmorphone 1 mg/ml ISec IVP PRN ×4 (02:39→17:53)
[2017-04-14] MEDS: Pantoprazole 40 mg EC Tab PO SCH (09:53)
[2017-04-14] MEDS: Ferrous Fum/Folic Acid/IF/VI 1 Cap PO SCH (09:53)
[2017-04-14] MEDS: Oxycodone/Acetaminophen 5/325 mg Tab PO PRN ×2 (09:53→21:57)
[2017-04-14] MEDS: Docusate-Senna 50 mg-8.6 mg Tab PO SCH ×2 (09:53→18:03)
[2017-04-14] MEDS: Calcium-Vit D 250 mg-125 Units Tab UD PO SCH (09:53)
[2017-04-14] MEDS: Enoxaparin 40 mg Syringe SC SCH (09:54)
--- NOTE | 2017-04-14 12:43 | CP.PCM.PN ---
Subjective - Date & Time of Evaluation Date of Evaluation: 04/14/17 Time of Evaluation: 12:40 - Subjective Subjective: Patient states pain is well controlled. She is having some dizziness when she is walking, but is better lying down. She says she has not been eating and she feels that is why. Denies CP/SOB/palp. Denies numbness/tingling. Objective - Vital Signs/Intake and Output Vital Signs (last 24 hours): Temp Pulse Resp BP Pulse Ox 98.2 F 70 20 106/68 96 04/13/17 23:30 04/13/17 23:30 04/13/17 23:30 04/13/17 23:30 04/13/17 23:30 Intake and Output: 04/14/17 04/14/17 06:59 18:59 Intake Total 560 Balance 560 - Medications Medications: Current Medications Calcium/Vitamin D (Oscal-D 250 Mg-125 Units Tab) 1 tab PO DAILY [facility] Last Admin: 04/14/17 09:53 Dose: 1 tab Docusate Sodium (Colace) 100 mg PO BID [facility] Last Admin: 04/14/17 09:53 Dose: 100 mg Enoxaparin Sodium (Lovenox) 40 mg SC DAILY [facility] Last Admin: 04/14/17 09:54 Dose: 40 mg Ergocalciferol (Drisdol 50,000 Intl Units Cap) 1 cap PO Q7D [facility] Last Admin: 04/07/17 19:41 Dose: 1 cap Fenofibrate (Tricor) 145 mg PO QPM [facility] Last Admin: 04/13/17 17:29 Dose: 145 mg Hydromorphone HCl (Dilaudid) 1 mg IVP Q4 PRN PRN Reason: Pain, severe (8-10) Last Admin: 04/14/17 11:26 Dose: 1 mg Sodium Chloride (Sodium Chloride 0.9%) 1,000 mls @ 80 mls/hr IV .[id number] [facility] Last Admin: 04/13/17 18:15 Dose: 80 mls/hr Iron (Ferocon) 1 cap PO DAILY [facility] Last Admin: 04/14/17 09:53 Dose: 1 cap Magnesium Hydroxide (Milk Of Magnesia) 30 ml PO HS [facility] Last Admin: 04/13/17 21:22 Dose: Not Given Ondansetron HCl (Zofran Inj) 4 mg IVP Q6 PRN PRN Reason: Nausea/Vomiting Oxycodone/Acetaminophen (Percocet 5/325 Mg Tab) 2 tab PO Q4H PRN PRN Reason: Pain, moderate (4-7) Stop: 04/15/17 14:13 Last Admin: 04/14/17 09:53 Dose: 2 tab Pantoprazole Sodium (Protonix Ec Tab) 40 mg PO DAILY [facility] Last Admin: 04/14/17 09:53 Dose: 40 mg Senna/Docusate Sodium (Senokot S 50 Mg-8.6 Mg) 1 tab PO BID [facility] Last Admin: 04/14/17 09:53 Dose: 1 tab Thiamine HCl (Vitamin B1 Tab) 100 mg PO DAILY [facility] Last Admin: 04/14/17 09:53 Dose: 100 mg Zolpidem Tartrate (Ambien) 5 mg PO HS PRN PRN Reason: Insomnia Last Admin: 04/13/17 21:21 Dose: 5 mg - Labs Labs: 04/13/17 06:18 04/13/17 06:18 PT 12.9 SECONDS (9.7-12.2) H 04/11/17 21:30 INR 1.2 04/11/17 21:30 APTT 30 SECONDS (21-34) 04/11/17 21:30 - Extremities Exam Additional comments: LLE: +ROM ankle/toes, sensation intact, calves soft NT neg homans +DP/PT pulse dressing changed. Incision intact, scant sang drainage, no erythema Assessment and Plan (1) Closed fracture of left tibial plateau Assessment & Plan: POD#2 s/p left tibial plateau ORIF soft compartments orthopedically stable for d/c to rehab maintain knee immobilizer at all times, strict NWB VTE proph f/u 2 weeks, call for appt DR. Schwartz [phone] elevate dressing change q1-2 days until dry d/w Dr. Schwartz, agrees with above Status: Acute
--- NOTE | 2017-04-14 18:38 | OP ---
PROCEDURE DATE: 04/12/2017 PREOPERATIVE DIAGNOSES: Displaced segmental proximal tibia and tibial shaft fracture, left tibia. POSTOPERATIVE DIAGNOSES: Displaced segmental proximal tibia and tibial shaft fracture, left tibia; meniscal separation, lateral; tear of medial meniscus; tricompartmental synovitis. PROCEDURES PERFORMED: 1. Open reduction and internal fixation, left bicondylar tibial plateau fracture. 2. Open reduction and internal fixation, left tibial shaft fracture. 3. Primary arthrotomy and repair of lateral meniscus. 4. Surgical arthroscopy with partial medial meniscectomy. 5. Surgical arthroscopy with partial tricompartmental synovectomy. 6. Intraarticular injection, application of Prasanna Hale compression dressing, knee immobilizer, positioning of fluoroscope, and interpretation of video images. SURGEON: Darin Schwartz MD [employer] ATTENDANT: Son Lopes PA-C [employer]: Melany Montes, certified registered nursing first crusher. TYPE OF ANESTHESIA: General endotracheal anesthesia. ANESTHESIA ADMINISTERED BY: Lauro Gomez MD ESTIMATED BLOOD LOSS: Approximately 35 mL. COMPLICATIONS: No complications. DRAINS: No drains. OPERATIVE INDICATION: Ada Bennett is a woman who sustained a fall several days ago. The patient presented to the emergency room, was sent home, and re-presented to the emergency room with a displaced tibial plateau fracture and segmental tibial fracture. The patient was stabilized, edema improved. Pros, cons, risks, and benefits of surgical approach were discussed. The possibility of mechanical failure, infection, thromboembolic disease, secondary or tertiary surgery were discussed. The concept of nerve injury, knee stiffness, prolonged rehab because of the patient's poor pain threshold, which has already been exhibited, was discussed. The patient fully understands the pros, cons, risks and benefits. Informed consent was obtained. DESCRIPTION OF PROCEDURE: After the satisfactory induction of the anesthetic, after having identified side and site of procedure and a critical pause/time-out, again the patient identified as Ada Bennett. In the supine position with all bony prominences well padded, left lower extremity was prepped and free-draped in the usual fashion for lower extremity surgery. The tourniquet which had been applied was inflated to 350 mmHg. After having identified the side and site of procedure and a critical pause/time-out, the lower extremity was exsanguinated using a 6-inch Esmarch bandage. Tourniquet which had been applied was insufflated to 350 mmHg. Under the surgeon's direction, the fluoroscope was positioned. Video images were generated and therapeutic decisions were made therefrom. Using spinal needles, the plane between the meniscus and tibial plateau was identified. At this point in time, an incision was described in a hockey stick fashion, extending from the tibial spine, just off the tibial spine one fingerbreadth, superficial to the lateral joint line. The skin incision was carried down through the skin and subcutaneous tissue. Hemostasis was controlled. Stay sutures applied. At this point in time, the anterolateral tibial musculature was identified and with great care taken to be cognizant of the position of the peroneal nerve, the dissection was carried down and the musculature was dissected. This having been accomplished, the musculature was tagged using a stay suture, and at this point in time, under the surgeon's direction, the anatomy of the fracture was identified. Fluoroscope identified the anatomy of the fracture, and at this point in time, with the position of the fracture having been identified, the lateral tibial plate was applied to the lateral aspect of the tibia, taking great care to extend to the tibial shaft component of the fracture as well. This having been accomplished, again under the surgeon's direction, the fluoroscope was positioned. Video images were generated and therapeutic decisions were made therefrom. Each sequential drill hole was drilled, sounded and the appropriate sized screw was placed. Verification of plate and screw position was accomplished on AP and lateral image intensification views and found to be acceptable. This having been accomplished, under the surgeon's direction, the fluoroscope was again positioned. The lateral meniscus was repaired into the plate using interrupted FiberWire suture. The lateral meniscus having been repaired, the wound was thoroughly irrigated and closed in layers with #1 Vicryl, 0 Vicryl, 2-0 Vicryl and dottie to skin. At this point in time, the joint was infiltrated with 10 mL of saline. Using #11 blade, followed by spreading, followed by introduction of the blunt trocar, the arthroscope was introduced. Examination of the joint commenced. There was found to be a very severe tricompartmental synovitis. This having been accomplished, careful partial tricompartmental synovectomy was accomplished after an anteromedial portal had been described and accomplished using #11 blade followed by spreading. With the arthroscope anteromedially now, with the arthroscopic shaver anterolaterally, a careful partial tricompartmental synovectomy was accomplished. The arthroscope was transferred back anterolaterally and a careful partial tricompartmental synovectomy was accomplished anteromedially. Again, careful partial tricompartmental synovectomy having been accomplished, bleeding points were controlled with the [place] SERFAS wand. This having been accomplished, there was found to be a tear of the inner free edge of the medial meniscus, and using a combination of the 3.4 mm Dyonics suction punch with the arthroscope anterolaterally and then transferred anteromedially using the 3.4 mm Dyonics suction punch, a partial medial meniscectomy was accomplished. The inner free edge was smoothed using the [place] SERFAS wand. Partial tricompartmental synovectomy having been completed, the wound having been thoroughly irrigated, portals were closed with interrupted Vicryl and nylon. Prasanna Hale compression dressing and knee immobilizer were applied. Darin Schwartz MD
[2017-04-14] MEDS: Sodium Chloride 0.9% 1,000 ML IV SCH (20:36)
[2017-04-14] MEDS: Ergocalciferol 50,000 Intl Units Cap PO SCH (20:36)
[2017-04-14] MEDS: Magnesium Hydroxide Susp 30 ml UD PO SCH (21:54)
[2017-04-15] MEDS: Oxycodone/Acetaminophen 5/325 mg Tab PO PRN ×2 (02:20→10:24)
--- NOTE | 2017-04-15 02:26 | PN ---
DATE: 04/14/2017 DAILY PROGRESS NOTE SUBJECTIVE: Patient is seen today, 04/14/2017. She is not in any cardiopulmonary distress. She is postoperative day #2. PHYSICAL EXAMINATION: VITAL SIGNS: Blood pressure 120/70, temperature 98.2, respiratory rate 18, and pulse 70. HEENT: Pupils equal and reactive to light. Normal-appearing mucosa of the conjunctivae, oropharynx and nasal membrane mucosa. NECK: Supple. No JVD. No carotid bruit. No lymph node. No thyromegaly. CHEST AND LUNGS: Bilateral symmetrical expansion. Good air exchange. No rales, no rhonchi. CARDIOVASCULAR SYSTEM: PMI not localized. S1, S2. No additional sounds. ABDOMEN: Normoactive bowel sounds. No tenderness. No organomegaly. No masses. EXTREMITIES: No cyanosis, no clubbing, no edema. CENTRAL NERVOUS SYSTEM: Alert, awake, oriented x3. No neurological deficit could be appreciated. ASSESSMENT: 1. Postoperative day #2 status post open reduction and internal fixation of left tibial fracture. 2. Status post fall. 3. Hypertriglyceridemia. 4. History of alcohol abuse. PLAN: Continue current medications and DVT prophylaxis. The patient is for subacute rehabilitation. Continue pain management. Nola Rodriguez MD
--- NOTE | 2017-04-15 06:44 | CP.PCM.PN ---
Subjective - Date & Time of Evaluation Date of Evaluation: 04/15/17 Time of Evaluation: 06:30 - Subjective Subjective: Patient states pain is much better. Tolerating PT well. Denies CP/SOB Objective - Vital Signs/Intake and Output Vital Signs (last 24 hours): Temp Pulse Resp BP Pulse Ox 97.8 F 64 20 102/63 95 04/15/17 04:05 04/15/17 04:05 04/15/17 04:05 04/15/17 04:05 04/15/17 04:05 - Medications Medications: Current Medications Calcium/Vitamin D (Oscal-D 250 Mg-125 Units Tab) 1 tab PO DAILY [facility] Last Admin: 04/14/17 09:53 Dose: 1 tab Docusate Sodium (Colace) 100 mg PO BID [facility] Last Admin: 04/14/17 17:57 Dose: 100 mg Enoxaparin Sodium (Lovenox) 40 mg SC DAILY [facility] Last Admin: 04/14/17 09:54 Dose: 40 mg Ergocalciferol (Drisdol 50,000 Intl Units Cap) 1 cap PO Q7D [facility] Last Admin: 04/14/17 20:36 Dose: 1 cap Fenofibrate (Tricor) 145 mg PO QPM [facility] Last Admin: 04/14/17 17:57 Dose: 145 mg Hydromorphone HCl (Dilaudid) 1 mg IVP Q4 PRN PRN Reason: Pain, severe (8-10) Last Admin: 04/14/17 17:53 Dose: 1 mg Sodium Chloride (Sodium Chloride 0.9%) 1,000 mls @ 80 mls/hr IV .[id number] [facility] Last Admin: 04/14/17 20:36 Dose: 80 mls/hr Iron (Ferocon) 1 cap PO DAILY [facility] Last Admin: 04/14/17 09:53 Dose: 1 cap Magnesium Hydroxide (Milk Of Magnesia) 30 ml PO HS [facility] Last Admin: 04/14/17 21:54 Dose: 30 ml Ondansetron HCl (Zofran Inj) 4 mg IVP Q6 PRN PRN Reason: Nausea/Vomiting Oxycodone/Acetaminophen (Percocet 5/325 Mg Tab) 2 tab PO Q4H PRN PRN Reason: Pain, moderate (4-7) Stop: 04/15/17 14:13 Last Admin: 04/15/17 02:20 Dose: 2 tab Pantoprazole Sodium (Protonix Ec Tab) 40 mg PO DAILY [facility] Last Admin: 04/14/17 09:53 Dose: 40 mg Senna/Docusate Sodium (Senokot S 50 Mg-8.6 Mg) 1 tab PO BID [facility] Last Admin: 04/14/17 18:03 Dose: 1 tab Thiamine HCl (Vitamin B1 Tab) 100 mg PO DAILY [facility] Last Admin: 04/14/17 09:53 Dose: 100 mg Zolpidem Tartrate (Ambien) 5 mg PO HS PRN PRN Reason: Insomnia Last Admin: 04/13/17 21:21 Dose: 5 mg - Labs Labs: 04/13/17 06:18 04/13/17 06:18 PT 12.9 SECONDS (9.7-12.2) H 04/11/17 21:30 INR 1.2 04/11/17 21:30 APTT 30 SECONDS (21-34) 04/11/17 21:30 - Extremities Exam Additional comments: LLE: swelling to foot improved. +ROM ankle/toes, sensation intact, +DP/pt pulses , incision intact, dry, no erythema, knee immob intact Assessment and Plan (1) Closed fracture of left tibial plateau Assessment & Plan: POD#3 s/p left tibial plateau ORIF orthopedically stable for d/c to [facility] strict NWB, knee immob at all times elevation f/u 1-[address] Schwartz [phone] cont VTE proph cont PT/OT Status: Acute
[2017-04-15 08:47] VITALS: BP 102/65; PULSE 67; TEMP 98.1; O2SAT 97
[2017-04-15] MEDS: Ferrous Fum/Folic Acid/IF/VI 1 Cap PO SCH (10:25)
[2017-04-15] MEDS: Enoxaparin 40 mg Syringe SC SCH (10:25)
[2017-04-15] MEDS: Calcium-Vit D 250 mg-125 Units Tab UD PO SCH (10:25)
[2017-04-15] MEDS: Pantoprazole 40 mg EC Tab PO SCH (10:25)
[2017-04-15] MEDS: Docusate-Senna 50 mg-8.6 mg Tab PO SCH (10:25)
--- NOTE | 2017-04-15 13:11 | CP.PCM.PN ---
Subjective - Date & Time of Evaluation Date of Evaluation: 04/15/17 Time of Evaluation: 12:45 - Subjective Subjective: Patient seen today, denies any chest pain, sob, c/o pain to the Left LE s/p left tibial plateau ORIF POD#3 Objective - Vital Signs/Intake and Output Vital Signs (last 24 hours): Temp Pulse Resp BP Pulse Ox 98.1 F 67 20 102/65 97 04/15/17 08:46 04/15/17 08:46 04/15/17 08:46 04/15/17 08:46 04/15/17 08:46 Intake and Output: 04/15/17 04/15/17 06:59 18:59 Intake Total 760 Balance 760 - Medications Medications: Current Medications Calcium/Vitamin D (Oscal-D 250 Mg-125 Units Tab) 1 tab PO DAILY [facility] Last Admin: 04/15/17 10:25 Dose: 1 tab Docusate Sodium (Colace) 100 mg PO BID [facility] Last Admin: 04/15/17 10:25 Dose: 100 mg Enoxaparin Sodium (Lovenox) 40 mg SC DAILY [facility] Last Admin: 04/15/17 10:25 Dose: 40 mg Ergocalciferol (Drisdol 50,000 Intl Units Cap) 1 cap PO Q7D [facility] Last Admin: 04/14/17 20:36 Dose: 1 cap Fenofibrate (Tricor) 145 mg PO QPM [facility] Last Admin: 04/14/17 17:57 Dose: 145 mg Hydromorphone HCl (Dilaudid) 1 mg IVP Q4 PRN PRN Reason: Pain, severe (8-10) Last Admin: 04/14/17 17:53 Dose: 1 mg Iron (Ferocon) 1 cap PO DAILY [facility] Last Admin: 04/15/17 10:25 Dose: 1 cap Magnesium Hydroxide (Milk Of Magnesia) 30 ml PO HS [facility] Last Admin: 04/14/17 21:54 Dose: 30 ml Ondansetron HCl (Zofran Inj) 4 mg IVP Q6 PRN PRN Reason: Nausea/Vomiting Oxycodone/Acetaminophen (Percocet 5/325 Mg Tab) 2 tab PO Q4H PRN PRN Reason: Pain, moderate (4-7) Stop: 04/15/17 14:13 Last Admin: 04/15/17 10:24 Dose: 2 tab Pantoprazole Sodium (Protonix Ec Tab) 40 mg PO DAILY [facility] Last Admin: 04/15/17 10:25 Dose: 40 mg Senna/Docusate Sodium (Senokot S 50 Mg-8.6 Mg) 1 tab PO BID [facility] Last Admin: 04/15/17 10:25 Dose: 1 tab Thiamine HCl (Vitamin B1 Tab) 100 mg PO DAILY [facility] Last Admin: 04/15/17 10:25 Dose: 100 mg Zolpidem Tartrate (Ambien) 5 mg PO HS PRN PRN Reason: Insomnia Last Admin: 04/13/17 21:21 Dose: 5 mg - Labs Labs: 04/13/17 06:18 04/13/17 06:18 PT 12.9 SECONDS (9.7-12.2) H 04/11/17 21:30 INR 1.2 04/11/17 21:30 APTT 30 SECONDS (21-34) 04/11/17 21:30 Assessment and Plan - Assessment and Plan (Free Text) Assessment: A/P 57 yr old female admitted with left tibial plateau fracture, s/p ORIF Pod#3 Patient accepted at [place] for rehab seen by orthopedics today, orthopedically stable for d/c to [facility] strict [facility], knee immob at all times f/u 1-[address] Schwartz D/W Dr. Rodriguez, cleared for discharge to [facility] and Dr. Rodriguez will follow the patient at [facility] Discharge plan discussed with patient
--- NOTE | 2017-04-15 13:50 | CP.PCM.PN ---
Subjective - Date & Time of Evaluation Date of Evaluation: 04/15/17 Time of Evaluation: 13:49 - Subjective Subjective: AFEBRILE Patient states pain is much better. Tolerating PT well. Denies CP/SOB LLE IN SOFT CAST. Objective - Vital Signs/Intake and Output Vital Signs (last 24 hours): Temp Pulse Resp BP Pulse Ox 98.1 F 67 20 102/65 97 04/15/17 08:46 04/15/17 08:46 04/15/17 08:46 04/15/17 08:46 04/15/17 08:46 Intake and Output: 04/15/17 04/15/17 06:59 18:59 Intake Total 760 Balance 760 - Medications Medications: Current Medications Calcium/Vitamin D (Oscal-D 250 Mg-125 Units Tab) 1 tab PO DAILY [facility] Last Admin: 04/15/17 10:25 Dose: 1 tab Docusate Sodium (Colace) 100 mg PO BID [facility] Last Admin: 04/15/17 10:25 Dose: 100 mg Enoxaparin Sodium (Lovenox) 40 mg SC DAILY [facility] Last Admin: 04/15/17 10:25 Dose: 40 mg Ergocalciferol (Drisdol 50,000 Intl Units Cap) 1 cap PO Q7D [facility] Last Admin: 04/14/17 20:36 Dose: 1 cap Fenofibrate (Tricor) 145 mg PO QPM [facility] Last Admin: 04/14/17 17:57 Dose: 145 mg Hydromorphone HCl (Dilaudid) 1 mg IVP Q4 PRN PRN Reason: Pain, severe (8-10) Last Admin: 04/14/17 17:53 Dose: 1 mg Iron (Ferocon) 1 cap PO DAILY [facility] Last Admin: 04/15/17 10:25 Dose: 1 cap Magnesium Hydroxide (Milk Of Magnesia) 30 ml PO HS [facility] Last Admin: 04/14/17 21:54 Dose: 30 ml Ondansetron HCl (Zofran Inj) 4 mg IVP Q6 PRN PRN Reason: Nausea/Vomiting Oxycodone/Acetaminophen (Percocet 5/325 Mg Tab) 2 tab PO Q4H PRN PRN Reason: Pain, moderate (4-7) Stop: 04/15/17 14:13 Last Admin: 04/15/17 10:24 Dose: 2 tab Pantoprazole Sodium (Protonix Ec Tab) 40 mg PO DAILY [facility] Last Admin: 04/15/17 10:25 Dose: 40 mg Senna/Docusate Sodium (Senokot S 50 Mg-8.6 Mg) 1 tab PO BID [facility] Last Admin: 04/15/17 10:25 Dose: 1 tab Thiamine HCl (Vitamin B1 Tab) 100 mg PO DAILY [facility] Last Admin: 04/15/17 10:25 Dose: 100 mg Zolpidem Tartrate (Ambien) 5 mg PO HS PRN PRN Reason: Insomnia Last Admin: 04/13/17 21:21 Dose: 5 mg - Labs Labs: 04/13/17 06:18 04/13/17 06:18 PT 12.9 SECONDS (9.7-12.2) H 04/11/17 21:30 INR 1.2 04/11/17 21:30 APTT 30 SECONDS (21-34) 04/11/17 21:30 - Constitutional Appears: No Acute Distress - Head Exam Head Exam: NORMAL INSPECTION - Eye Exam Eye Exam: EOMI, PERRL - ENT Exam ENT Exam: Normal Oropharynx - Neck Exam Neck Exam: Normal Inspection - Respiratory Exam Respiratory Exam: Clear to Ausculation Bilateral - Cardiovascular Exam Cardiovascular Exam: REGULAR RHYTHM, +S1, +S2 - GI/Abdominal Exam GI & Abdominal Exam: Soft, Normal Bowel Sounds - Extremities Exam Extremities Exam: Normal Capillary Refill, Pedal Edema (LLE +VE SOFT CAST AND DRESSING. MOVES TOES.). absent: Calf Tenderness - Neurological Exam Neurological Exam: Awake, Oriented x3 - Psychiatric Exam Psychiatric exam: Normal Mood - Skin Skin Exam: Normal Color, Warm Assessment and Plan (1) Leukocytosis Status: Acute (2) Laceration of mouth, complicated Assessment & Plan: IMPROVING LISTERINE GARGLES. PRN TID. Status: Acute (3) Closed fracture of left tibial plateau Assessment & Plan: S/P SURGERY TOLERATING PT. OFF ABX . FOR [facility]. Status: Acute (4) Intractable pain Status: Acute (5) Knee fracture, left Status: Acute
--- NOTE | 2017-04-17 00:44 | DS ---
REASON FOR ADMISSION: This is a 57-year-old female, who was admitted after a fall and fracture of the left tibia. COURSE OF HOSPITALIZATION: Patient was admitted to medical floor and she had an Orthopedic consult done by Dr. Schwartz. Patient underwent open reduction and internal fixation of the left tibia. Postoperative course was uneventful and the patient was discharged to subacute rehabilitation at [facility] to continue physical therapy and on DVT prophylaxis. FINAL DIAGNOSES: 1. Fall. 2. Fracture left tibia. 3. Status post open reduction and internal fixation of the left tibia. [facility] MD Michael
== END 2017-04-15 16:00 | disposition home health service (06) | DRG 219 ==
LOC: C.ER 13:31 → C.9E 16:30 → C.6T 21:29 → C.9E 21:40 → C.3T 21:53 → C.9S 04-12 11:51 → C.6T 04-12 16:18
PROVIDERS: ADMIT Internal Medicine; ATTEND Internal Medicine
PROC: 0SBD4ZZ Excision of Left Knee Joint, Percutaneous Endoscopic Approach (ICD-10-PCS; 2017-04-12)
PROC: 0SQD4ZZ Repair Left Knee Joint, Percutaneous Endoscopic Approach (ICD-10-PCS; 2017-04-12)
PROC: 0QSH04Z Reposition Left Tibia with Internal Fixation Device, Open Approach (ICD-10-PCS; principal; 2017-04-12 13:00)
DX: S82.142A Displaced bicondylar fracture of left tibia, initial encounter for closed fracture (principal); M25.00 Hemarthrosis, unspecified joint; D72.829 Elevated white blood cell count, unspecified; E55.9 Vitamin D deficiency, unspecified; S01.512A Laceration without foreign body of oral cavity, initial encounter; E61.1 Iron deficiency; W19.XXXA Unspecified fall, initial encounter; S82.262A Displaced segmental fracture of shaft of left tibia, initial encounter for closed fracture; S83.242A Other tear of medial meniscus, current injury, left knee, initial encounter; M65.9 Synovitis and tenosynovitis, unspecified; S82.202A Unspecified fracture of shaft of left tibia, initial encounter for closed fracture; E78.00 Pure hypercholesterolemia, unspecified; E78.1 Pure hyperglyceridemia; J45.909 Unspecified asthma, uncomplicated; S01.81XA Laceration without foreign body of other part of head, initial encounter; F17.210 Nicotine dependence, cigarettes, uncomplicated

== ENCOUNTER 2018-08-04 10:18 | Outpatient (CLI) | payer MEDICAID | END 2018-08-04 10:19 | disposition home or self-care (01) | LOC: C.CTH 10:19 | DX: Z12.2 Encounter for screening for malignant neoplasm of respiratory organs (principal) ==